=== PATIENT | female | born 1930 | race Hispanic/Latino ===

== ENCOUNTER 2017-12-01 15:41 | Inpatient (IN) | payer MEDICARE ==
[2017-12-01] MEDS ORDERED: Morphine 4 mg/ml ISec IVP STA (16:12)
--- NOTE | 2017-12-01 16:15 | ED PDOC ---
Arrival/HPI - General Time Seen by Provider: 12/01/17 16:05 Historian: Patient - History of Present Illness Narrative History of Present Illness (Text): 12/01/17 16:10 Susanne Chairez is an 87 year old female who presents to the emergency department complaining of left hip and femur injury s/p mechanical fall prior to arrival as per daughter. Patient is deaf, history obtained through daughter. Patient was walking when she tripped on a rug on her porch. No other complaints offered at this time. Time/Duration: Prior to Arrival Symptom Onset: Sudden Symptom Course: Improving Activities at Onset: Light Context: Walking, Home Associated Symptoms (Text): 12/01/17 16:33 Mechanical fall at home on her porch tripping over a rug just prior to arrival injuring left hip. No other injury or trauma. Past Medical History - Provider Review Nursing Documentation Reviewed: Yes - Cardiac Hx Atrial Fibrillation: Yes - Pulmonary Hx Respiratory Disorders: No - Neurological Hx Neurological Disorder: Yes (VERTIGO) Hx Dementia: Yes (DOES NOT TAKE THE MEDICATION) - HEENT Hx HEENT Disorder: Yes (wears hearing aids(BILATERAL)) - Renal Hx Renal Disorder: No - Endocrine/Metabolic Hx Hypothyroidism: Yes - Hematological/Oncological Hx Blood Disorders: No - Integumentary Hx Dermatological Disorder: Yes (RIGHT FOOT STASIS ULCER) - Musculoskeletal/Rheumatological Hx Musculoskeletal Disorders: Yes (hammertoes) Hx Falls: Yes Hx Unsteady Gait: Yes (CANE) - Gastrointestinal Hx Gastrointestinal Disorders: No - Genitourinary/Gynecological Hx Genitourinary Disorders: No - Psychiatric Hx Psychophysiologic Disorder: No Hx Substance Use: No - Surgical History Hx Coronary Artery Bypass Graft: Yes Family/Social History - Physician Review Nursing Documentation Reviewed: Yes Family/Social History: No Known Family HX Smoking Status: Former Smoker Hx Alcohol Use: No Hx Substance Use: No Allergies/Home Meds Allergies/Adverse Reactions: Allergies Penicillins Allergy (Verified 12/01/17 17:04) ANAPHYLAXIS Sulfa (Sulfonamide Antibiotics) Allergy (Verified 12/01/17 17:04) ANAPHYLAXIS Home Medications: Home Meds Medication Instructions Recorded Confirmed Enalapril Maleate [Vasotec] 2.5 mg PO DAILY 12/27/16 12/01/17 Ferrous Sulfate [Feosol] 325 mg PO DAILY 12/27/16 12/01/17 Cholestyramine [Questran] 4 gm PO HS 12/28/16 12/01/17 Omeprazole 40 mg PO DAILY 12/01/17 12/01/17 Review of Systems - Physician Review All systems were reviewed & negative as marked: Yes - Review of Systems Constitutional: absent: Fevers, Night Sweats Eyes: absent: Vision Changes ENT: absent: Hearing Changes Respiratory: absent: SOB, Cough Cardiovascular: absent: Chest Pain Gastrointestinal: absent: Abdominal Pain Genitourinary Female: absent: Dysuria Musculoskeletal: Other (Left hip pain and femur injury) Skin: absent: Rash, Pruritis Neurological: absent: Headache, Dizziness, Focal Weakness Endocrine: absent: Diaphoresis Hemo/Lymphatic: absent: Adenopathy Psychiatric: absent: Anxiety, Depression Physical Exam Vital Signs Reviewed: Yes Vital Signs Temp Pulse Resp BP Pulse Ox 12/01/17 16:05 98.1 F 86 18 185/89 H 99 Temperature: Afebrile Blood Pressure: Hypertensive Pulse: Regular Respiratory Rate: Normal Appearance: Positive for: Uncomfortable, Cachectic, Other (Thin) Pain Distress: Severe Mental Status: Positive for: Alert and Oriented X 3 - Systems Exam Head: Present: Atraumatic, Normocephalic Pupils: Present: PERRL Extroacular Muscles: Present: EOMI Conjunctiva: Present: Normal Mouth: Present: Moist Mucous Membranes Neck: Present: Normal Range of Motion Respiratory/Chest: Present: Decreased Breath Sounds (Lung sounds diminished) Cardiovascular: Present: Regular Rate and Rhythm, Normal S1, S2. No: Murmurs Abdomen: Present: Normal Bowel Sounds. No: Tenderness, Distention, Peritoneal Signs Back: Present: Normal Inspection Upper Extremity: Present: Normal Inspection. No: Cyanosis, Edema Lower Extremity: Present: Swelling (Swollen hip), Deformity (Left LE shortened and externally rotated) Neurological: Present: GCS=15, CN II-XII Intact, Speech Normal, Motor Func Grossly Intact Skin: Present: Warm, Dry, Normal Color. No: Rashes Psychiatric: Present: Alert, Oriented x 3, Normal Insight, Normal Concentration Medical Decision Making ED Course and Treatment: 12/01/17 16:18 Impression: 87 year old female complaining of left hip and femur injury s/p mechanical fall prior to arrival as per daughter. Differential Diagnosis included but are not limited to: Mechanical Fall Plan: -- EKG -- Chest X-ray -- Left Femur X-ray -- Left Hip X-ray -- Pelvis X-ray -- Urinalysis -- Labs -- Morphine and Zofran -- Reassess and disposition Prior Visits: Notes and results from previous visits were reviewed. Patient was last seen in the emergency department on 12/27/16 for intermittent, non-radiating, epigastric chest pain. Patient was admitted to hospitalist care for further evaluation. Progress Notes: 12/01/17 04:10 Code Ortho was called on patient. 12/01/17 16:35 EKG shows normal sinus rhythm rate approximately 80 with frequent unifocal PVCs and no acute ST or T-wave changes 12/01/17 18:05 Discussed with Mello Corado and medical records library professor. - Lab Interpretations Lab Results: 12/01/17 16:35 12/01/17 16:35 Lab Results 12/01/17 16:35: Sodium 142, Potassium 4.0, Chloride 106, Carbon Dioxide 23, Anion Gap 16, BUN 20, Creatinine 0.9, Est GFR ( Amer) > 60, Est GFR (Non- Af Amer) 60, Random Glucose 145 H, Calcium 9.0, Total Bilirubin 0.4, AST 27, ALT 25, Alkaline Phosphatase 108, Lactate Dehydrogenase 574, Total Creatine Kinase 79, Troponin I 0.01 D, NT-Pro-B Natriuret Pep 2550 H, Total Protein 6.5 , Albumin 3.4, Globulin 3.2, Albumin/Globulin Ratio 1.1 12/01/17 16:35: PT 16.4 H, INR 1.43 H, APTT 32.3 12/01/17 16:35: WBC 8.2 D, RBC 3.66, Hgb 10.6 L, Hct 33.4 L, MCV 91.3, MCH 29.0 , MCHC 31.7, RDW 13.3, Plt Count 208, MPV 10.2, Gran % 75.1 H, Lymph % (Auto) 17.9 L, [place] % (Auto) 4.4, Eos % (Auto) 2.0, Baso % (Auto) 0.6, Gran # 6.16, Lymph # (Auto) 1.5, [place] # (Auto) 0.4, Eos # (Auto) 0.2, Baso # (Auto) 0.05 I have reviewed the lab results: Yes - RAD Interpretation Radiology Orders: 12/01/17 16:09 Femur Left [FEMUR MIN 2 VIEWS LT] [RAD] Stat 12/01/17 16:10 CHEST ONE VIEW [RAD] Stat Hip Left [HIP MIN 2V W/ PELVIS LT] [RAD] Stat - Medication Orders Current Medication Orders: Discontinued Medications Morphine Sulfate (Morphine) 4 mg IVP STAT STA Stop: 12/01/17 16:13 Last Admin: 12/01/17 16:33 Dose: Morphine Sulfate (Morphine) 4 mg IVP STAT STA Stop: 12/01/17 16:21 Last Admin: 12/01/17 16:33 Dose: 4 mg IVP Administration Document 12/01/17 16:33 SF (Rec: 12/01/17 16:33 SF [email or web address] Charges for Administration # of IVP Administrations 1 Ondansetron HCl (Zofran Inj) 4 mg IVP ONCE ONE Stop: 12/01/17 16:14 Last Admin: 12/01/17 16:33 Dose: 4 mg IVP Administration Document 12/01/17 16:33 SF (Rec: 12/01/17 16:33 SF [id number]) Charges for Administration # of IVP Administrations 1 - Scribe Statement The provider has reviewed the documentation as recorded by the Juan José Diaz Provider Scribe Attestation: All medical record entries made by the Scribe were at my direction and personally dictated by me. I have reviewed the chart and agree that the record accurately reflects my personal performance of the history, physical exam, medical decision making, and the department course for this patient. I have also personally directed, reviewed, and agree with the discharge instructions and disposition. Disposition/Present on Arrival - Present on Arrival Any Indicators Present on Arrival: No History of DVT/PE: No History of Uncontrolled Diabetes: No Urinary Catheter: No History of Decub. Ulcer: No History Surgical Site Infection Following: None - Disposition Have Diagnosis and Disposition been Completed?: Yes Diagnosis: Intertrochanteric fracture of left femur, Elevated brain natriuretic peptide ( BNP) level, Hypertension Disposition: HOSPITALIZED Disposition Time: 18:06 Patient Plan: Admission Condition: FAIR [facility] - Follow up with primary
[2017-12-01] MEDS ORDERED: Morphine 5 MG/ML SYRINGE IVP STA (16:20)
[2017-12-01 17:04] LABS: ALB/GLOB RATIO 1.1 (1.1-1.8); ALBUMIN 3.4 g/dL (3.0-4.8); ALT/SGPT 25 U/L (7-56); AST/SGOT 27 U/L (14-36); BLOOD UREA NITROGEN 20 mg/dL (7-21); GFR AFRICAN-AMERICAN > 60; GFR NON-AFRICAN AMERICAN 60
[2017-12-01 17:11] LABS: BASO # 0.05 K/mm3 (0.0-2.0); BASO % 0.6 % (0.0-3.0); EOS # 0.2 (0.0-0.7); GRAN # 6.16 (1.4-6.5); GRAN % 75.1 % (50.0-68.0); HEMOGLOBIN 10.6 g/dL (12.0-16.0); LYMPH # 1.5 (1.2-3.4); LYMPH % 17.9 % (22.0-35.0); MEAN CELL VOLUME 91.3 fl (80.0-105.0); MEAN CORPUSCULAR HGB CONC 31.7 g/dl (31.0-37.0); MEAN PLATELET VOLUME 10.2 fl (7.0-11.0); MONO # 0.4 (0.1-0.6); MONO % 4.4 % (1.0-6.0); RBC 3.66 10^6/uL (3.5-6.1); RED CELL DISTRIBUTION WIDTH 13.3 % (11.5-14.5); WHITE BLOOD COUNT 8.2 10^3/ul (4.5-11.0)
[2017-12-01 17:16] LABS: B-TYPE NATRIURETIC PEPTIDE 2550 pg/mL (0-450); TROPONIN I 0.01 ng/mL
[2017-12-01 17:28] LABS: INR 1.43 (0.93-1.08); PARTIAL THROMBOPLASTIN TIME 32.3 Seconds (25.1-36.5); PROTHROMBIN TIME 16.4 SECONDS (9.4-12.5)
--- NOTE | 2017-12-01 17:50 | CARD ---
APPROVED REPORT EKG Measurement Heart [id number] <Conclusion> Sinus rhythm with occasional premature ventricular complexes and fusion complexes Otherwise normal ECG
--- NOTE | 2017-12-01 19:03 | RAD ---
PROCEDURE: CHEST RADIOGRAPH, 1 VIEW HISTORY: OR COMPARISON: 12/27/2016. FINDINGS: LUNGS: Fibronodular changes/ scarring in the apices. PLEURA: No pneumothorax or pleural fluid seen. CARDIOVASCULAR: No radiographic findings to suggest acute or significant cardiovascular disease. OSSEOUS STRUCTURES: No significant abnormalities. VISUALIZED UPPER ABDOMEN: Normal. OTHER FINDINGS: None. IMPRESSION: No active disease. No acute/significant interval changes.
[2017-12-01 20:18] LABS: URINE BILIRUBIN NEGATIVE (NEGATIVE); URINE BLOOD NEGATIVE (NEGATIVE); URINE GLUCOSE (UA) NEGATIVE (NEGATIVE); URINE LEUKOCYTE ESTERASE NEGATIVE Leu/uL (NEGATIVE); URINE NITRATE NEGATIVE (NEGATIVE); URINE PROTEIN 30 mg/dL (<30 mg/dL); URINE UROBILINOGEN 0.2 E.U./dL (<1 E.U./dL)
[2017-12-01 20:32] LABS: TOTAL IRON BINDING CAPACITY 242 ug/dL (265-497)
[2017-12-01 20:34] LABS: % IRON SATURATION 21 % (20-55); IRON 51 ug/dL (45-180)
[2017-12-01] MEDS ORDERED: diltiaZEM 120 mg/24 Hours CD Cap PO ONE (20:45)
[2017-12-01 20:47] LABS: URINE APPEARANCE CLEAR (CLEAR); URINE COLOR YELLOW (YELLOW)
[2017-12-01 20:48] LABS: URINE EPITHELIAL CELLS 0 - 2 /hpf (0-5); URINE RBC NEGATIVE /hpf (0-2); URINE WBC 0 - 2 /hpf (0-6)
[2017-12-01 20:49] LABS: URINE BACTERIA FEW (NEG)
[2017-12-01] MEDS: Morphine 2 mg/ml ISec IVP PRN ×2 (20:57→23:59)
[2017-12-01] MEDS: Cholestyramine 4 gm/Pkt UD PO SCH (20:59)
--- NOTE | 2017-12-01 22:00 | CP.PCM.HP ---
History of Present Illness - History of Present Illness History of Present Illness: Erin Solano, PGY1, H&P for Dr Blum: CC: mechanical fall, left hip pain 87 year old female with PMH of paroxysmal afib on Eliquis, HTN, hypothyroidism, presents s/p mechanical fall at home this afternoon. Pt was walking from the porch to her house, where she tripped on he rug and landed on her left hip. Pt' s daughter at bedside, providing history. States that pt was in her usual state of health prior to this incident. Pt denies any dizziness, syncope, cp, sob, confusion, palpitations/irregular heart beat prior to the fall. In ED, pt afebrile, vitals stable, imaging showed left intertrochanteric femur fracture. Code Ortho called. Currently, pt c/o pain at the left hip site, denies headache, chills, vision changes, cough, sob, cp, n/v/abdominal pain, diarrhea, urinary symptoms, leg swelling. 12 point ROS obtained and negative, except as noted per HPI. PMH: paroxysmal afib, vertigo, HTN, hypothyroidism, arthritis, age related cognitive decline PSH: denies All: PCN, sulfa FH: DM, HTN SH: Denies etoh/tobacco/drug use. Lives with daughter, walks by self in house, uses cane outside home. Present on Admission - Present on Admission Any Indicators Present on Admission: No History of DVT/PE: No History of Uncontrolled Diabetes: No Urinary Catheter: No Decubitus Ulcer Present: No Review of Systems - Review of Systems All systems: reviewed and no additional remarkable complaints except Review of Systems: as per hPI Past Patient History - Infectious Disease Hx of Infectious Diseases: None - Past Social History Smoking Status: Former Smoker - CARDIAC Hx Atrial Fibrillation: Yes - PULMONARY Hx Respiratory Disorders: No - NEUROLOGICAL Hx Neurological Disorder: Yes (VERTIGO) Hx Dementia: Yes (DOES NOT TAKE THE MEDICATION) - HEENT Hx HEENT Problems: Yes (wears hearing aids(BILATERAL)) - RENAL Hx Chronic Kidney Disease: No - ENDOCRINE/METABOLIC Hx Hypothyroidism: Yes - HEMATOLOGICAL/ONCOLOGICAL Hx Blood Disorders: No - INTEGUMENTARY Hx Dermatological Problems: Yes (RIGHT FOOT STASIS ULCER) - MUSCULOSKELETAL/RHEUMATOLOGICAL Hx Musculoskeletal Disorders: Yes (hammertoes) Hx Falls: Yes Hx Unsteady Gait: Yes (CANE) - GASTROINTESTINAL Hx Gastrointestinal Disorders: No - GENITOURINARY/GYNECOLOGICAL Hx Genitourinary Disorders: No - PSYCHIATRIC Hx Psychophysiologic Disorder: No Hx Substance Use: No - SURGICAL HISTORY Hx Coronary Artery Bypass Graft: Yes Meds Allergies/Adverse Reactions: Allergies Allergy/AdvReac Type Severity Reaction Status Date / Time Penicillins Allergy ANAPHYLAXIS Verified 12/01/17 21:07 Sulfa (Sulfonamide Allergy ANAPHYLAXIS Verified 12/01/17 21:07 Antibiotics) Physical Exam - Constitutional Appears: Non-toxic, No Acute Distress - Head Exam Head Exam: ATRAUMATIC, NORMOCEPHALIC - Eye Exam Eye Exam: EOMI, PERRL. absent: Conjunctival injection, Scleral icterus Pupil Exam: NORMAL ACCOMODATION, PERRL - ENT Exam ENT Exam: Mucous Membranes Moist - Neck Exam Neck exam: Positive for: Normal Inspection - Respiratory Exam Respiratory Exam: Clear to Auscultation Bilateral, NORMAL BREATHING PATTERN. absent: Accessory Muscle Use, Chest Wall Tenderness, Rhonchi, Wheezes, Respiratory Distress - Cardiovascular Exam Cardiovascular Exam: REGULAR RHYTHM, RRR, +S1, +S2. absent: Systolic Murmur - GI/Abdominal Exam GI & Abdominal Exam: Normal Bowel Sounds, Soft. absent: Diminished Bowel Sounds , Distended, Organomegaly, Tenderness - Extremities Exam Extremities exam: Positive for: normal capillary refill, pedal pulses present. Negative for: calf tenderness, joint swelling, tenderness Additional comments: left foot externally rotated, TTP in left hip/proximal femur site. - Back Exam Back exam: NORMAL INSPECTION - Neurological Exam Neurological exam: Alert, CN II-XII Intact, Oriented x3 - Skin Skin Exam: Dry, Normal Color, Warm Results - Vital Signs Recent Vital Signs: Last Vital Signs Temp 98.1 F 12/01/17 16:05 Pulse 46 L 12/01/17 20:59 Resp 17 12/01/17 20:09 BP 165/60 H 12/01/17 20:59 Pulse Ox 98 12/01/17 20:09 - Labs Result Diagrams: 12/01/17 16:35 12/01/17 16:35 Labs: Laboratory Results - last 24 hr 12/01/17 20:00 Urine Color Yellow Urine Appearance Clear Urine pH 6.0 Ur Specific [place] 1.025 Urine Protein 30 H Urine Glucose (UA) Negative Urine Ketones Trace H Urine Blood Negative Urine Nitrate Negative Urine Bilirubin Negative Urine Urobilinogen 0.2 Ur Leukocyte Esterase Negative Urine RBC Negative Urine WBC 0 - 2 Ur Epithelial Cells 0 - 2 Urine Bacteria Few Assessment & Plan - Assessment and Plan (Free Text) Assessment: 87 year old female with PMH paroxysmal afib (on Eliquis), HTN, hypothyroidism, presents s/p mechanical fall, found to have left intertrochanteric femur fracture: Left intertrochanteric femur fracture: - Code Ortho called. - Dr Dhillon on board. Appreciate recs. - morphine 2 mg q 4h prn - NS @ 80 - Cardio c/s for clearance. appreciate help. - Quiroz cath inserted. - Fall precautions. Hx of HTN: - c/w home meds lisinopril Hx of Paroxysmal afib: - EKG shows Sr with occasional PVCs, HR 80 - Hold Eliquis - C/w home Cardizem - Obtain CT head to r/o bleed Hx of hypothyroidism: - c/w home synthroid Hx of Constipation: - Senna, Colace PPX: heparin sq, protonix Discussed with Dr Villegas. - Date & Time Date: 12/01/17 Time: 22:00
[2017-12-01] MEDS: Sodium Chloride 0.9% 1,000 ML IV SCH (23:08)
[2017-12-01 23:29] VITALS: BMI 17.9
[2017-12-01] MEDS ORDERED: Influenza Vaccine 60 mcg/0.5 mL SYR (4YR UP) IM ONE (23:29)
[2017-12-01] MEDS ORDERED: Pneumococcal 23-Valent Vaccine IM ONE (23:29)
[2017-12-02] MEDS: Morphine 2 mg/ml ISec IVP PRN ×3 (05:30→22:26)
[2017-12-02 06:43] LABS: BASO # 0.02 K/mm3 (0.0-2.0); BASO % 0.2 % (0.0-3.0); GRAN # 8.93 (1.4-6.5); GRAN % 75.6 % (50.0-68.0); LYMPH # 1.7 (1.2-3.4); LYMPH % 14.1 % (22.0-35.0); MEAN CELL VOLUME 89.6 fl (80.0-105.0); MEAN CORPUSCULAR HEMOGLOBIN 29.9 pg (25.0-35.0); MEAN CORPUSCULAR HGB CONC 33.3 g/dl (31.0-37.0); MEAN PLATELET VOLUME 9.6 fl (7.0-11.0); MONO # 1.2 (0.1-0.6); MONO % 10.1 % (1.0-6.0); RBC 2.68 10^6/uL (3.5-6.1); RED CELL DISTRIBUTION WIDTH 13.4 % (11.5-14.5); WHITE BLOOD COUNT 11.8 10^3/ul (4.5-11.0)
[2017-12-02 07:03] LABS: TROPONIN I 0.02 ng/mL
[2017-12-02 07:06] LABS: ALBUMIN 2.9 g/dL (3.0-4.8); ALT/SGPT 29 U/L (7-56); AST/SGOT 20 U/L (14-36); BILIRUBIN,DIRECT 0.3 mg/dL (0.0-0.4); BLOOD UREA NITROGEN 20 mg/dL (7-21); CALCIUM 8.7 mg/dL (8.4-10.5); GFR AFRICAN-AMERICAN > 60; GFR NON-AFRICAN AMERICAN > 60; HDL CHOLESTEROL 48 mg/dL (29-60); MAGNESIUM 1.4 mg/dL (1.7-2.2)
[2017-12-02 07:08] LABS: FREE T4 1.01 ng/dL (0.78-2.19); LDL CHOLESTEROL 36 mg/dL (0-129); T4 5.8 ug/dL (5.5-11.0)
[2017-12-02] MEDS ORDERED: diltiaZEM 120 mg/24 Hours CD Cap PO STA (07:21)
--- NOTE | 2017-12-02 08:23 | RAD ---
PROCEDURE: Pelvis and left hip HISTORY: trauma COMPARISON: TECHNIQUE: Three views FINDINGS: There is a comminuted intertrochanteric fracture of the left hip. The pelvis is intact. IMPRESSION: Comminuted intertrochanteric fracture of the left hip
--- NOTE | 2017-12-02 08:25 | RAD ---
PROCEDURE: Left Femur Radiographs. HISTORY: trauma COMPARISON: None. TECHNIQUE: AP and Lateral Radiographs of the left femur. FINDINGS: FEMUR: Normal. No fracture. SOFT TISSUES: Normal. OTHER FINDINGS: Fracture left hip IMPRESSION: No distal femoral fracture.
--- NOTE | 2017-12-02 08:40 | HP ---
HISTORY OF PRESENT ILLNESS: The patient is a 87-year-old female presented to the Emergency Room, the patient was brought into the emergency room by [facility]. According to the patient and the patient's daughter, the patient tripped and fell injuring her left leg between the hips and the knee. The patient described pain scale of 10/10. The patient was unable to get up from the floor after the patient falling. Patient is complaining of left hip and left leg pain with a pain scale of 10/10. The patient and the daughter categorically denies loss of consciousness or syncope. The patient has hearing deficit and also the patient's daughter has a hearing deficit, so most of the communication was with loud communication which the patient and the daughter was able to understand. According to the patient and the patient's daughter, the patient tripped on a rug in her porch and fell, and developed left hip pain. REVIEW OF SYSTEMS: A 12-system review was done, pertinent positive and negative dictated above. CODE STATUS: Full code. LIVING WILL ADVANCE DIRECTIVE: None. ALLERGIES: ARE TO PENICILLIN AND SULFA. HEIGHT: 5 feet 8 inches as per the [facility] info. WEIGHT: 118 pounds. BODY MASS INDEX: . HOME MEDICATIONS: Omeprazole 40 mg daily, Cardizem CD 120 mg daily, Jefferson Forte 500 mg daily, Synthroid 150 mcg daily, ferrous sulfate 325 mg daily, Vasotec 2.5 mg daily, Questran 4 g at bedtime, Ecotrin 81 mg daily, Eliquis 2.5 mg twice a day. SOCIAL HISTORY: Positive for former smoker. Denies alcohol and substance abuse. PAST MEDICAL AND SURGICAL HISTORY: History of atrial fibrillation, history of hypertension, history of hypothyroidism, history of dyslipidemia, history of gait dysfunction, history of coronary artery bypass graft, history of hearing deficit, using hearing aids, history of history of dementia, history of vertigo. The patient's past medical history is significant for hospitalization a year ago in December 2016, history of paroxysmal atrial fibrillation with rapid ventricle response, history of dilated cardiomyopathy with ejection fraction of 45, history of normocytic iron-deficiency anemia, history of status post IV Venofer treatment, history of transaminitis, history of vitamin B12 deficiency, history of systolic congestive heart failure with left ventricular ejection fraction of 45%, history of hypothyroidism, history of vitamin B12 deficiency, history of mild pulmonary arterial hypertension with elevated right ventricular systolic pressure of 40 mmHg, history of [id number] aortic regurgitation, moderate mitral regurgitation, history of deconditioning, history of severe kyphosis, history of dementia with episodic forgetfulness, history of hypovitaminosis D, history of hypertension, history of hypothyroidism, history of [id number]-[id number] aortic regurgitation, moderate mitral regurgitation, mild tricuspid regurgitation, history of gait dysfunction. The patient's past medical history is significant for history of chest pain, history of hypertension, history of atrial fibrillation, history of hypovitaminosis D, history of hypertension, hypothyroidism, degenerative joint disease, history of dementia, on no medications, history of atrial fibrillation, history of paroxysmal atrial fibrillation, history of gait dysfunction, history of hearing deficit, history of hypothyroidism. The patient is seen in stretcher #11 in the emergency room. The patient's daughter is at bedside. PHYSICAL EXAMINATION: GENERAL: The patient is alert, awake, responsive, hard of hearing. The patient is lying in the bed comfortable. HEENT: Head normocephalic, atraumatic. HEENT examination shows dry oral mucosa, pale conjunctivae. No oropharyngeal lesion. Soft carotid bruit. Positive hearing deficit noted. Cardiovascular: S1 and S2. Questionable irregular rhythm with positive systolic murmur, left second intercostal space, right second intercostal space, left sternal border. CHEST: Kyphosis. LUNGS: Shows no rales, crackles or wheezing. No rhonchi. ABDOMEN: Soft. Positive bowel sound. GENITALIA: Female. RECTAL: Deferred. EXTREMITY: Shows no pitting edema of the lower extremity, but decreased range of motion of the left lower extremity. VASCULAR: Palpable pulses. NEUROLOGIC: The patient is alert, awake, responsive, hard of hearing. Cranial nerves II through XII limited. Gait examination could not be tested. PSYCHIATRIC: Is not applicable. Body mass index is 18. DIAGNOSTICS: Significant abnormal diagnostics; hemoglobin and hematocrit 10.6 and 33.4, granulocytes 75, PT/PTT 16.4 and 32.3. Sodium 142, potassium 4.0, chloride 106, CO2 of 23, anion gap 16, BUN 20, creatinine 0.9, GFR greater than 60, glucose 145, calcium 9.0, iron 51, TIBC 242, iron saturation 21. Troponin is 0.01. BNP is 2550. Urine is not done. The patient's CPK was normal at 79, glucose 145. Rest of the chemistries within normal limit. EKG, chest x-ray, hip and pelvis and femur x-rays reviewed. The patient was evaluated in the emergency room by the ER physician, Dr. Mayo. The patient was treated in the emergency room with IV morphine. The patient was advised to be admitted after the patient's x-ray revealed left femur intertrochanteric fracture. IMPRESSION AND PLAN 1. Status post mechanical fall. 2. Left femur intertrochanteric fracture. 3. Hearing dysfunction. 4. Hypertension. The patient's blood pressure has been ranging around 154/94, 176/74, 185/89. 5. Normocytic anemia. 6. Granulocytosis. 7. Hyperglycemia. 8. Elevated BNP with history of left ventricle ejection fraction of 45%. 9. Gait dysfunction secondary to fall. 10. Fibronodular apical pulmonary changes. 11. 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 12. Nonspecific ST-T changes. 13. History of paroxysmal atrial fibrillation. 14. History of questionable dementia. 15. History of gastroesophageal reflux, history of hypothyroidism, history of hypertension. PLAN: At this time, the patient has been ordered repeat labs, thyroid panel, lipid panel. Repeat troponin ordered for the morning. Repeat EKG ordered. CONSULTATION: 1. Cardiology, Dr. Bailey for preop clearance. 2. Dr. Dhillon for Orthopedics. The patient has been resumed on Cardizem CD 120 mg daily, aspirin 81 daily. The patient's p.o. iron will be held at this time. The patient is started on morphine 2 mg IV q. 4 p.r.n., Protonix 40 mg daily, Questran 4 g daily. The patient is started on IV fluid 0.9 at 80 mL an hour, Synthroid 150 mcg daily, Jefferson Forte 500 mg daily, Zestril 2.5 mg daily, Zofran will be ordered for nausea. The patient will be ordered Senokot and stool softeners, and laxative to prevent constipation while the patient is getting intravenous narcotics. The patient will be put on SCDs, HUMBERTO stockings, DVT prophylaxis. The patient has been ordered echo with Doppler, n.p.o. diet. Orthopedics physician called to the nurses and advised to keep the patient n.p.o. for evaluation of possible surgical intervention in the a.m. The patient was seen and examined in stretcher #11 in the emergency room. The patient's condition, diagnosis, test results, preliminary x-ray finding, all the diagnostic test results was explained to the patient and the patient's daughter who was present at the bedside. All of the above was extensively explained to the patient and the patient's daughter at length and all questions concerned answered. The patient and the patient's daughter was advised the best treatment option is surgical intervention to continue with the patient's baseline status with ambulation and independence, with the patient and the patient's daughter acknowledged understanding. Though I have also explained to the patient and the patient's daughter that the patient will be at least moderate to high risk for surgical intervention because of advanced age and underlying multiple comorbidities. The patient will have Quiroz catheter placed. The patient has been ordered SCDs, HUMBERTO stockings. The patient will be put on DVT prophylaxis. Heparin 5000 units subcu q. 8. At present, the patient is seen in stretcher #11. I have discussed with the patient and the patient's family about the patient's need for hospitalization, need for further diagnostic therapeutic intervention, need for most likely surgical intervention for the left hip and femur intertrochanteric fracture. All questions concerned answered at length. The patient's further management will be dependent upon the patient's clinical condition, hemodynamic status and as per the patient response to therapeutic intervention, as per the patient's diagnostic test results and as per recommendation by Cardiology and Orthopedics. Dictated and electronically signed, not read. Matt Villegas MD
--- NOTE | 2017-12-02 08:44 | CT ---
PROCEDURE: CT HEAD WITHOUT CONTRAST. HISTORY: fall, pt on eliquis COMPARISON: None available. TECHNIQUE: Axial computed tomography images were obtained through the head/brain without intravenous contrast. Radiation dose: Total exam DLP = 873 mGy-cm. This CT exam was performed using one or more of the following dose reduction techniques: Automated exposure control, adjustment of the mA and/or kV according to patient size, and/or use of iterative reconstruction technique. FINDINGS: HEMORRHAGE: No intracranial hemorrhage. BRAIN: No mass effect or edema. No atrophy or chronic microvascular ischemic changes. VENTRICLES: Unremarkable. No hydrocephalus. CALVARIUM: Unremarkable. PARANASAL SINUSES: Unremarkable as visualized. No significant inflammatory changes. MASTOID AIR CELLS: Right-sided otomastoiditis. The middle ear is opacified. The ossicles are not disrupted. There is opacification and sclerosis of the mastoid air cells OTHER FINDINGS: None. IMPRESSION: No acute intracranial findings. Right-sided otomastoiditis
[2017-12-02] MEDS: Pantoprazole 40 mg EC Tab PO SCH (08:48)
[2017-12-02] MEDS: Magnesium Sulfate 2 GM in Sodium Chloride 0.9% 100 ML IVPB SCH ×2 (08:56→11:33)
[2017-12-02] MEDS ORDERED: diltiaZEM 120 mg/24 Hours CD Cap PO SCH (10:00)
--- NOTE | 2017-12-02 11:25 | CARD ---
APPROVED REPORT EXAM: Two-dimensional and M-mode echocardiogram with Doppler and color Doppler. INDICATION Congestive Heart Failure 2D DIMENSIONS Left Atrium (2D)4.3 (1.6-4.0cm)LVOT Diameter1.8 (1.8-2.4cm) LVEF (%)55.0 (>50%) M-Mode DIMENSIONS Aortic Root2.90 (2.2-3.7cm)Aortic Cusp Exc.0.80 (1.5-2.0cm) Aortic Valve AoV Peak Pyblfnmo168.0cm/sAoV VTI39.4cmAO Peak GR.20mmHg LVOT Peak Zcyocsqz874.0cm/sLVOT VTI25.10cmAO Mean GR.12mmHg MARY (VMAX)1.19vl8JYF (VTI)1.40bm2DO P 1/2 Lnrn017ym Mitral Valve E/A ratio0.0 TDI E/Lateral E'0.0E/Medial E'0.0 Tricuspid Valve TR Peak Nxwdlbrv233nk/sRAP [id number] Peak Gr.49mmHg [id number] LEFT VENTRICLE The left ventricle is normal size. There is mild concentric left ventricular hypertrophy. The left ventricular ejection fraction is within the normal range. No left ventricle thrombus noted on this study. RIGHT VENTRICLE The right ventricle is normal size. There is normal right ventricular wall thickness. The right ventricular systolic function is normal. ATRIA The left atrium is mildly dilated. The right atrium is mildly dilated. AORTIC VALVE The aortic valve is moderately thickened. There is moderate aortic regurgitation. MITRAL VALVE The mitral valve is mildly thickened. Mitral regurgitation is trace to mild. TRICUSPID VALVE There is mild tricuspid regurgitation. There is moderate pulmonary hypertension. GREAT VESSELS The aortic root is normal in size. <Conclusion> The left ventricle is normal size. There is mild concentric left ventricular hypertrophy. The left ventricular ejection fraction is within the normal range. There is moderate aortic regurgitation. Mitral regurgitation is trace to mild. There is mild tricuspid regurgitation. There is moderate pulmonary hypertension.
[2017-12-02] MEDS: Sodium Chloride 0.9% 1,000 ML IV SCH (11:39)
[2017-12-02] MEDS: Levothyroxine 150 MCG TAB PO SCH (11:57)
--- NOTE | 2017-12-02 12:17 | CARD ---
APPROVED REPORT EKG Measurement Heart [id number] <Conclusion> Sinus rhythm with frequent premature ventricular complexes( Ventricular bigeminy) Nonspecific ST and T wave abnormality Abnormal ECG
[2017-12-02] MEDS: URSODIOL 500 MG PO SCH (13:10)
[2017-12-02] MEDS ORDERED: Rocuronium 10 mg/ml (5 ml) ONE (13:11)
[2017-12-02] MEDS ORDERED: Succinylcholine 200 mg/10 ml Inj IV ONE (13:11)
[2017-12-02] MEDS ORDERED: Etomidate 20 mg/10ml Inj IV ONE (13:12)
[2017-12-02] MEDS ORDERED: Vancomycin 1 g Inj ONE (14:12)
[2017-12-02] MEDS: Aztreonam 1 Gm in NS 100mL 100 ML IVPB SCH ×2 (14:15→17:37)
[2017-12-02] MEDS: Vancomycin 1gm in NS 250ml 1 GM/250 ML BAG IVPB SCH ×2 (14:18→21:10)
[2017-12-02] MEDS ORDERED: Neostigmine Methylsulfate 3mg/3ml Syringe IV ONE (15:08)
[2017-12-02] MEDS ORDERED: HYDROmorphone 0.5 mg/0.5 ml ISec IVP PRN (15:32)
[2017-12-02] MEDS ORDERED: Sodium Chloride 0.9% 1,000 ML IV SCH (15:45)
[2017-12-02] MEDS ORDERED: HYDROmorphone 0.5 mg/0.5 ml ISec IVP ONE (16:08)
[2017-12-02] MEDS ORDERED: HYDROmorphone 0.5 mg/0.5 ml ISec ONE (16:21)
--- NOTE | 2017-12-02 16:22 | RAD ---
PROCEDURE: Left Hip X-ray Radiographs. HISTORY: post hip fx COMPARISON: 12/01/2017 FINDINGS: BONES: Status post ORIF left intertrochanteric fracture. Fracture fragments are in near anatomic alignment. No additional fracture identified. JOINTS: Normal. SOFT TISSUES: Normal. OTHER FINDINGS: None. IMPRESSION: ORIF left intertrochanteric hip fracture.
--- NOTE | 2017-12-02 16:23 | RAD ---
PROCEDURE: Left Ankle Radiographs. HISTORY: left ankle pain COMPARISON: None FINDINGS: BONES: No acute fracture. There is a small corticated ossific density adjacent to the tip of the medial malleolus which may represent an ununited ossification center or an old ununited fracture fragment. JOINTS: Normal. No osteoarthritis. Ankle mortise maintained. Talar dome intact SOFT TISSUES: Normal. OTHER FINDINGS: A plantar calcaneal spur is noted. IMPRESSION: No acute fracture.
--- NOTE | 2017-12-02 17:15 | CP.PCM.CON ---
History of Present Illness - History of Present Illness History of Present Illness: 87 year old female with PMH of paroxysmal atrial fibrillation, HTN, hypothyroidism, arthritis, was brought in to [facility] [place] because of mechanical fall on her left side. In the ED, Srays revealed left hip fracture and patient is to have surgery today. CT head was done which showed right sided otomastoiditis. She has no fever or chills, no vomiting, no convulsions, no diarrhea. Infectious Diseases consult is requested to further evaluate and manage. Review of Systems - Review of Systems All systems: reviewed and no additional remarkable complaints except (as per hPI ) Past Patient History - Infectious Disease Hx of Infectious Diseases: None - Past Social History Smoking Status: Never Smoked - CARDIAC Hx Cardiac Disorders: Yes Hx Hypertension: Yes - PULMONARY Hx Respiratory Disorders: No - NEUROLOGICAL Hx Neurological Disorder: Yes (VERTIGO) Hx Dementia: Yes (DOES NOT TAKE THE MEDICATION) - HEENT Hx HEENT Problems: Yes (wears hearing aids(BILATERAL)) - RENAL Hx Chronic Kidney Disease: No - ENDOCRINE/METABOLIC Hx Endocrine Disorders: Yes Hx Hypothyroidism: Yes - HEMATOLOGICAL/ONCOLOGICAL Hx Blood Transfusions: No Hx Blood Transfusion Reaction: No - INTEGUMENTARY Hx Dermatological Problems: Yes (RIGHT FOOT STASIS ULCER) - MUSCULOSKELETAL/RHEUMATOLOGICAL Hx Musculoskeletal Disorders: Yes (hammertoes) Hx Falls: Yes Hx Unsteady Gait: Yes (CANE) - GASTROINTESTINAL Hx Gastrointestinal Disorders: No - GENITOURINARY/GYNECOLOGICAL Hx Genitourinary Disorders: No - PSYCHIATRIC Hx Psychophysiologic Disorder: No Hx Substance Use: No - SURGICAL HISTORY Hx Surgeries: Yes - ANESTHESIA Hx Anesthesia Reactions: No Hx Malignant Hyperthermia: No Meds Allergies/Adverse Reactions: Allergies Allergy/AdvReac Type Severity Reaction Status Date / Time Penicillins Allergy ANAPHYLAXIS Verified 12/01/17 21:07 Sulfa (Sulfonamide Allergy ANAPHYLAXIS Verified 12/01/17 21:07 Antibiotics) - Medications Medications: Current Medications Aspirin (Ecotrin) 81 mg PO DAILY [facility] Cholestyramine Resin (Questran) 4 gm PO HS [facility] Last Admin: 12/01/17 20:59 Dose: 4 gm Diltiazem HCl (Cardizem) 30 mg PO Q8H [facility] Last Admin: 12/02/17 09:18 Dose: Not Given Docusate Sodium (Colace) 100 mg PO TID [facility] Heparin Sodium (Porcine) (Heparin) 5,000 units SC Q8H [facility] PRN Reason: Protocol Last Admin: 12/02/17 05:30 Dose: 5,000 units Sodium Chloride (Sodium Chloride 0.9%) 1,000 mls @ 80 mls/hr IV .[id number] [facility] Last Admin: 12/01/17 23:08 Dose: 80 mls/hr Magnesium Sulfate 2 gm/ Sodium (Chloride) 104 mls @ 102 mls/hr IVPB Q3H [facility] Stop: 12/02/17 11:47 Last Admin: 12/02/17 08:56 Dose: 102 mls/hr Aztreonam (Azactam 1 Gm) 100 mls @ 100 mls/hr IVPB Q8 [facility] PRN Reason: Protocol Stop: 12/09/17 10:01 Levothyroxine Sodium (Synthroid) 150 mcg PO DAILY [facility] Lisinopril (Zestril) 2.5 mg PO DAILY [facility] Morphine Sulfate (Morphine) 2 mg IVP Q4 PRN PRN Reason: Pain, severe (8-10) Last Admin: 12/02/17 08:59 Dose: 2 mg Non-Formulary Medication (Ursodiol [Jefferson Forte]) 500 mg PO DAILY [facility] Ondansetron HCl (Zofran Inj) 4 mg IVP Q4H PRN PRN Reason: Nausea/Vomiting Pantoprazole Sodium (Protonix Ec Tab) 40 mg PO ACB [facility] Last Admin: 12/02/17 08:48 Dose: 40 mg Sennosides (Senokot Tab) 17.2 mg PO HS [facility] Last Admin: 12/01/17 23:07 Dose: 17.2 mg Physical Exam - Constitutional Appears: Chronically Ill - Head Exam Head Exam: NORMAL INSPECTION - ENT Exam ENT Exam: Mucous Membranes Moist - Neck Exam Neck exam: Negative for: Meningismus - Respiratory Exam Respiratory Exam: Decreased Breath Sounds - Cardiovascular Exam Cardiovascular Exam: +S1, +S2 - GI/Abdominal Exam GI & Abdominal Exam: Soft. absent: Tenderness Results - Vital Signs Recent Vital Signs: Last Vital Signs Temp 99.0 F 12/02/17 07:30 Pulse 85 12/02/17 08:47 Resp 22 12/02/17 07:30 BP 184/90 H 12/02/17 08:47 Pulse Ox 99 12/02/17 07:30 - Labs Result Diagrams: 12/02/17 06:15 12/02/17 06:15 Labs: Laboratory Results - last 24 hr 12/01/17 12/02/17 12/02/17 20:00 06:15 06:15 WBC 11.8 H D RBC 2.68 L Hgb 8.0 L D Hct 24.0 L MCV 89.6 MCH 29.9 MCHC 33.3 RDW 13.4 Plt Count 202 MPV 9.6 Gran % 75.6 H Lymph % (Auto) 14.1 L Johnston % (Auto) 10.1 H Eos % (Auto) 0.0 L Baso % (Auto) 0.2 Gran # 8.93 H Lymph # (Auto) 1.7 Johnston # (Auto) 1.2 H Eos # (Auto) 0.0 Baso # (Auto) 0.02 Sodium 142 Potassium 4.0 Chloride 105 Carbon Dioxide 27 Anion Gap 14 BUN 20 Creatinine 0.8 Est GFR ( Amer) > 60 Est GFR (Non-Af Amer) > 60 Random Glucose 153 H Calcium 8.7 Phosphorus 4.1 Magnesium 1.4 L Total Bilirubin 0.3 Direct Bilirubin 0.3 AST 20 ALT 29 Alkaline Phosphatase 79 Troponin I 0.02 D Total Protein 5.6 L Albumin 2.9 L Globulin 2.8 Albumin/Globulin Ratio 1.0 L Triglycerides 74 Cholesterol 98 L LDL Cholesterol Direct 36 HDL Cholesterol 48 Free T4 Thyroxine (T4) TSH 3rd Generation Urine Color Yellow Urine Appearance Clear Urine pH 6.0 Ur Specific [place] 1.025 Urine Protein 30 H Urine Glucose (UA) Negative Urine Ketones Trace H Urine Blood Negative Urine Nitrate Negative Urine Bilirubin Negative Urine Urobilinogen 0.2 Ur Leukocyte Esterase Negative Urine RBC Negative Urine WBC 0 - 2 Ur Epithelial Cells 0 - 2 Urine Bacteria Few 12/02/17 06:15 WBC RBC Hgb Hct MCV MCH MCHC RDW Plt Count MPV Gran % Lymph % (Auto) Johnston % (Auto) Eos % (Auto) Baso % (Auto) Gran # Lymph # (Auto) Johnston # (Auto) Eos # (Auto) Baso # (Auto) Sodium Potassium Chloride Carbon Dioxide Anion Gap BUN Creatinine Est GFR ( Amer) Est GFR (Non-Af Amer) Random Glucose Calcium Phosphorus Magnesium Total Bilirubin Direct Bilirubin AST ALT Alkaline Phosphatase Troponin I Total Protein Albumin Globulin Albumin/Globulin Ratio Triglycerides Cholesterol LDL Cholesterol Direct HDL Cholesterol Free T4 1.01 Thyroxine (T4) 5.8 TSH 3rd Generation 3.72 Urine Color Urine Appearance Urine pH Ur Specific [place] Urine Protein Urine Glucose (UA) Urine Ketones Urine Blood Urine Nitrate Urine Bilirubin Urine Urobilinogen Ur Leukocyte Esterase Urine RBC Urine WBC Ur Epithelial Cells Urine Bacteria Assessment & Plan - Assessment and Plan (Free Text) Plan: Assessment right sided otomastoiditis left hip fracture, acute paroxysmal atrial fibrillation HTN hypothyroidism arthritis Plan Started patient on Vancomycin and Azactam and will monitor clinically
[2017-12-02 17:36] LABS: FOLATE 19.3 ng/mL
--- NOTE | 2017-12-02 17:49 | RAD ---
PROCEDURE: Fluoroscopy up to 1 hr. HISTORY: O.R.I.F. LEFT HIP COMPARISON: None TECHNIQUE: Standard protocol for this study/examination. FINDINGS: Total fluoroscopic time (continuous mode) utilized during the procedure: 86.7 seconds. Submitted images from the current procedure: 4.0 Total exam DLP: (mGy): 7.94 IMPRESSION: Less than 1 hr fluoroscopic time utilized during performance of the procedure.
[2017-12-02] MEDS: Cholestyramine 4 gm/Pkt UD PO SCH (21:11)
[2017-12-02 22:06] LABS: BASO # 0.04 K/mm3 (0.0-2.0); BASO % 0.2 % (0.0-3.0); EOS % 0.1 % (1.5-5.0); GRAN # 15.01 (1.4-6.5); GRAN % 78.5 % (50.0-68.0); HEMOGLOBIN 9.1 g/dL (12.0-16.0); LYMPH # 2.1 (1.2-3.4); LYMPH % 11.2 % (22.0-35.0); MEAN CELL VOLUME 87.7 fl (80.0-105.0); MEAN CORPUSCULAR HEMOGLOBIN 28.8 pg (25.0-35.0); MEAN CORPUSCULAR HGB CONC 32.9 g/dl (31.0-37.0); MEAN PLATELET VOLUME 9.3 fl (7.0-11.0); MONO # 1.9 (0.1-0.6); RBC 3.16 10^6/uL (3.5-6.1); RED CELL DISTRIBUTION WIDTH 15.2 % (11.5-14.5); WHITE BLOOD COUNT 19.1 10^3/ul (4.5-11.0)
[2017-12-03] MEDS: Aztreonam 1 Gm in NS 100mL 100 ML IVPB SCH ×4 (00:09→21:50)
--- NOTE | 2017-12-03 00:37 | CON ---
DATE: 12/02/2017 CARDIOLOGY CONSULTATION HISTORY OF PRESENT ILLNESS: The patient is an 87-year-old woman with a fall with resultant fracture of her hip. No loss of consciousness noted. PAST MEDICAL HISTORY: Notable for history of paroxysmal atrial fibrillation, which was treated. She was treated with Cardizem as well as Eliquis. Her last dose of Eliquis was yesterday morning according to the daughters. The patient's past medical history is also notable for a stress test that was done in January 2017. The defect was small with good LV function. After extensive discussion with the family, the patient's comorbidity as well as her age, risks, benefit analysis resulted in a decision to treat her abnormal stress test medically. She has been chest pain free. She is not short of breath. In addition, her last cardiovascular workup included an echocardiogram, which was done today reveals an ejection fraction of 55% with moderate pulmonary hypertension. Patient is free of chest pain. No shortness of breath noted. No loss of consciousness according her daughters. PHYSICAL EXAMINATION: VITAL SIGNS: Blood pressure 157/57, heart rate in the 70s. NECK: Negative JVD. LUNGS: Without rales. HEART: Reveals a 2/6 systolic ejection murmur. EXTREMITIES: Without edema. Her EKG shows normal sinus rhythm with frequent PVCs and APCs. LABORATORY DATA: Hemoglobin is 8. Chemistries, BUN and creatinine unremarkable with a glucose of 153. Troponins are negative. IMPRESSION: 1. Status post hip fracture without loss of consciousness on a fall. 2. Paroxysmal atrial fibrillation. 3. Anemia. 4. Diabetes mellitus. 5. Aortic valve sclerosis. 6. Good left ventricular function. 7. Moderate pulmonary retention. Given these findings, the patient's cardiac status is as noted and is optimized. Risks, benefit analysis would suggest doing surgery earlier would be better. Careful monitoring of hemoglobin would be important given that her last Eliquis was yesterday morning. Carmine Bailey MD
--- NOTE | 2017-12-03 00:50 | PN ---
DATE: 12/02/2017 LOCATION: The patient is seen in room 566, bed 1. SUBJECTIVE: The patient is lying in the bed. The patient does not appear to be any distress. The patient's daughters are at bedside. Overnight nurse's notes were reviewed. The patient complained of hip pain 06/05, receiving p.r.n. pain medication. The patient's Quiroz catheter was continued. HUMBERTO stockings were continued. SCDs were continued. The patient was seen by director social service, physical therapist. PHYSICAL EXAMINATION: VITAL SIGNS: T-max 97.5. The patient was seen between the hours of 10:00 and 11:00 a.m. Heart rate 68, 69, 84, 85. Overnight, the patient's heart rate dropped into 46. Respirations 17, O2 sat is 97-99%, telemetry monitoring. HEENT: Head examination normocephalic, atraumatic. HEENT examination shows pinkish pale conjunctivae. Anicteric sclerae. Dry oral mucosa. No neck rigidity. Soft carotid bruit. No jugular venous distention. CHEST: Kyphosis. LUNGS: Shows no rales, crackles or wheezing. CARDIOVASCULAR: S1, S2. Regular rhythm. Positive systolic murmur, left sternal border, right second intercostal space, left second intercostal space. ABDOMEN: Soft. Positive bowel sounds. No hepatosplenomegaly noted. No guarding. No rigidity. No rebound tenderness. Positive left hip tenderness noted. GENITALIA: Female. Positive Quiroz catheter. EXTREMITY: Shows decreased range of motion of the left lower extremity. Sensory examination intact. Positive SCDs and HUMBRETO stockings. MUSCULOSKELETAL: Body mass index of 18. NEUROLOGIC: The patient is alert, awake, responsive, hard of hearing, episodically confused. Gait examination is not tested. DIAGNOSTICS: On 12/02/2017, WBC 11.8; hemoglobin and hematocrit 8 and 24, dropping from 10.6 and 33.4; platelet 202; granulocytes 76% segs. PT/PTT 16.4 and 2.3. Sodium 142, potassium 4.0, chloride 105, CO2 of 27, anion gap 14, BUN 20, creatinine 0.8, GFR greater than 60, glucose 153, calcium 8.7, phosphorus 4.1, magnesium 1.4, ferritin 442. Troponin is flat, total protein 5.6, albumin 2.9, cholesterol 98, vitamin B12 of 198, folate 19.3. TSH is 3.7. The patient was typed and crossmatched. Blood type is B+. The patient's imaging and echocardiogram, EKG all reviewed. IMPRESSION AND PLAN: 1. Left hip fracture. 2. Anemia with decreasing hemoglobin and hematocrit. 3. Biapical pulmonary fibrin nodular scarring. 4. Gait dysfunction. 5. Deconditioning. 6. Status post mechanical fall. 7. Left hip comminuted intertrochanteric fracture. 8. Right-sided otomastoiditis with opacification of the middle air and opacification and sclerosis of the mastoid air cells. 9. Hearing deficit. 10. Possible dementia. 11. Hypertension. 12. Bradycardia. 13. Status post open reduction and internal fixation of the left hip intertrochanteric fracture. 14. 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 15. Left heal plantar calcaneal spur. 16. Uncontrolled hypertension. 17. Granulocytosis. 18. Hyperglycemia. 19. Hypomagnesemia. 20. Protein malnutrition. 21. Hypoalbuminemia. 22. Severe vitamin B12 deficiency. 23. Proteinuria and ketonuria. 24. Bacteriuria. 25. B+ blood type. 26. Status post 2 units of packed red blood cell transfusion. 27. Frequent premature ventricular contractions and premature atrial contractions. 28. Left ventricular ejection fraction of 55% with pulmonary arterial hypertension and right ventricular systolic pressure of 60 mmHg. 29. Concentric left ventricular hypertrophy. 30. Mildly dilated left and right atrium. 31. Moderate aortic regurgitation and moderately thickened aortic valve. 32. Mild mitral regurgitation with mildly thickened mitral valve. 33. Tricuspid regurgitation with moderate pulmonary arterial hypertension with right ventricular systolic pressure of 59 mmHg. 34. Hypertensive cardiovascular disease with frequent premature ventricular contractions. 35. History of paroxysmal atrial fibrillation. 36. Penicillin and sulfa allergy. 37. History of questionable cholelithiasis. 38. Hypothyroidism. PLAN: At this time, the patient will be monitored postoperatively. The patient and the patient's family met with the director social service. Discussed discharge planning. The patient has been ordered repeat CMP, LFT, magnesium, phosphorus in a.m. Serial labs have been ordered. Repeat CBC ordered. CURRENT CONSULTATIONS: 1. Cardiology. 2. Orthopedics. 3. Infectious Disease. CURRENT MEDICATIONS: Hydralazine 10 mg IV q. 6 p.r.n., Azactam 1 g IV q. 8. The patient's is started on Colace 100 three times a day, aspirin 81 mg daily, folic acid 1 mg daily, heparin 5000 subcu q. 8, Lopressor 25 mg twice a day, morphine 2 mg IV q. 4 hours p.r.n., Protonix 40 mg daily, Questran 4 g at bedtime, Senokot 17.2 mg at bedtime, IV fluid 0.9 normal saline at 80 mL an hour, Synthroid 150 mcg daily, Jefferson Forte 500 mg daily, vancomycin 1 g IV q. 12, vitamin B12 at 1000 mcg IM daily, Zestril is adjusted to 5 mg daily, Zofran 4 mg IV q. 4 p.r.n. The patient is on incentive spirometry, regular diet. The patient has been ordered HUMBERTO stockings, SCDs. Blood transfusion ordered. The patient will be followed up with the above subspecialties. The patient's hemoglobin A1c will be ordered for hyperglycemia evaluation. The patient will be followed up by orthopedics for starting physical therapy, out of bed, ambulation therapy and gait training. The patient's case was referred to Physical Therapy. The patient's case will be referred to physical therapist after the discretion of the Orthopedics' evaluation. Dictated and electronically signed, not read. Signing off, Matt Villegas MD
--- NOTE | 2017-12-03 02:45 | OP ---
PROCEDURE DATE: 12/02/2017 PREOPERATIVE DIAGNOSIS: Left hip intertrochanteric fracture. POSTOPERATIVE DIAGNOSIS: Left hip intertrochanteric fracture. PROCEDURE: Open reduction and internal fixation of left hip fracture with an intramedullary nail. SURGEON: Jeremy Dhillon MD HOSE INSPECTOR: Renetta Tamayo, physician orthopaedic physician assistant. TYPE OF ANESTHESIA: General. COMPLICATIONS: None. ESTIMATED BLOOD LOSS: 100 mL. IMPLANT: Biomet trochanteric entry nail. The patient received 2 units of packed RBCs intraoperatively. INDICATION FOR PROCEDURE: This is an 87-year-old female who presented status post fall with left hip pain and inability to ambulate. Clinical and radiographic examination was consistent with a left hip intertrochanteric fracture. Recommendation was for open reduction and internal fixation once the patient was medically optimized. The risks, benefits, and alternatives of the procedure were discussed with the patient's daughters, and informed consent was obtained by the daughter who was the power of flamer sealer. DESCRIPTION OF PROCEDURE: After the surgical site was signed and verified in the preoperative holding area, the patient was taken to the operating room and placed supine on the fracture table. After administration of general anesthesia, the patient received 1 gram of vancomycin and 1 gram of Azactam IV. The patient's left lower extremity was positioned in the traction boot. The right lower extremity was gently extended away from the operative field. Care was taken to make sure all bony prominences and nerves were well padded and protected. At this point, a provisional closed reduction was performed using the C-arm image intensifier. Reduction was checked using the C-arm in both the AP and lateral planes. Satisfied, the patient's left lower extremity was prepped and draped in the usual sterile fashion. An approximately 3 cm incision was made proximal to the tip of the greater trochanter. Soft tissues were dissected bluntly down to the tip of the trochanter, and the guide pin for entry hole was placed on the tip of the trochanter. Position of the guide pin was checked using the C-arm in both the AP and lateral planes. The guide pin was inserted into the medullary canal of the proximal femur. Satisfied, the step drill was used to drill our entry hole. At this point, the guide pin was exchanged for a smooth tip guidewire, and again the position of the guidewire was confirmed using the C-arm in both the AP and lateral planes. Next, the nail was inserted over the guidewire and reassessed to the appropriate depth. The position of the nail as well as the fracture reduction was confirmed. Satisfied, through the outrigger drill and through a small incision on the lateral aspect of the proximal thigh, the sleeves for hip screws were placed on the lateral cortex of the proximal femur. The guide pin for our hip screw was then inserted in the roughly center-center position of the femoral head, and this was confirmed using the C-arm. The length of the screw was measured and the hole for our hip screw was then drilled. The appropriate length screw was then inserted over the guide pin into the center-center position of the head being careful to maintain reduction. Satisfied again, the reduction was checked using the image intensifier in both the AP and lateral planes. Satisfied, the screw was locked to the nail by screwing down on the set screw on the proximal aspect of the nail. Finally, through the outrigger jig and through a small incision on the mid portion of the thigh, the nail was locked statically. The outrigger jig was then removed, and final x-rays were taken confirming good position of the hardware as well as good fracture reduction. At this point, the wounds were all irrigated and closed in a layered fashion. A sterile dressing was applied. The patient was removed from the fracture table and transferred to the stretcher and taken to the recovery room in stable condition. Jeremy Dhillon MD
[2017-12-03 07:00] LABS: BASO # 0.02 K/mm3 (0.0-2.0); BASO % 0.2 % (0.0-3.0); EOS % 0.1 % (1.5-5.0); GRAN # 9.83 (1.4-6.5); GRAN % 78.1 % (50.0-68.0); LYMPH # 1.3 (1.2-3.4); LYMPH % 10.5 % (22.0-35.0); MEAN CELL VOLUME 87.1 fl (80.0-105.0); MEAN CORPUSCULAR HEMOGLOBIN 28.2 pg (25.0-35.0); MEAN CORPUSCULAR HGB CONC 32.4 g/dl (31.0-37.0); MEAN PLATELET VOLUME 9.7 fl (7.0-11.0); MONO # 1.4 (0.1-0.6); MONO % 11.1 % (1.0-6.0); RBC 2.8 10^6/uL (3.5-6.1); RED CELL DISTRIBUTION WIDTH 15.7 % (11.5-14.5); WHITE BLOOD COUNT 12.6 10^3/ul (4.5-11.0)
[2017-12-03 07:24] LABS: HEMOGLOBIN 7.9 g/dL (12.0-16.0)
[2017-12-03 08:00] LABS: ALB/GLOB RATIO 0.9 (1.1-1.8); ALBUMIN 2.2 g/dL (3.0-4.8); ALT/SGPT 31 U/L (7-56); AST/SGOT 18 U/L (14-36); BILIRUBIN,DIRECT 0.2 mg/dL (0.0-0.4); BLOOD UREA NITROGEN 21 mg/dL (7-21); CALCIUM 7.8 mg/dL (8.4-10.5); GFR AFRICAN-AMERICAN > 60; GFR NON-AFRICAN AMERICAN > 60; MAGNESIUM 2.3 mg/dL (1.7-2.2)
[2017-12-03] MEDS: Pantoprazole 40 mg EC Tab PO SCH (08:30)
[2017-12-03] MEDS: Levothyroxine 150 MCG TAB PO SCH (09:29)
[2017-12-03] MEDS: URSODIOL 500 MG PO SCH (09:33)
--- NOTE | 2017-12-03 09:49 | CP.PCM.PN ---
Subjective - Date & Time of Evaluation Date of Evaluation: 12/03/17 Time of Evaluation: 09:35 - Subjective Subjective: Patient is POD #1 s/p L ORIF intertrochanteric fx. Patient is laying in bed. She does not appear to be in any distress. She denies any pain. Hgb still low at 7.9, is being transfused again today with 2 units L hip: Dressings are dry and intact Thigh and calf soft nontender. NVI distally POD#1 s/p L ORIF intertroch fx Cont HUMBERTO stockings and SCDS bilaterally for DVT prophylaxis at this time due to low hgb Cont WBAT Cont physical therapy Will monitor labs Objective - Vital Signs/Intake and Output Vital Signs (last 24 hours): Temp Pulse Resp BP Pulse Ox 98 F 86 20 133/67 97 12/03/17 08:23 12/03/17 08:23 12/03/17 08:23 12/03/17 08:23 12/03/17 08:23 Intake and Output: 12/03/17 12/03/17 06:59 18:59 Intake Total 0 Output Total 450 Balance -450 - Medications Medications: Current Medications Aspirin (Ecotrin) 81 mg PO DAILY [facility] Last Admin: 12/02/17 12:00 Dose: Not Given Cholestyramine Resin (Questran) 4 gm PO HS [facility] Last Admin: 12/02/17 21:11 Dose: 4 gm Cyanocobalamin (Vitamin B12 1000 Mcg/Ml Inj) 1,000 mcg IM DAILY [facility] Stop: 12/12/17 10:01 Diphenhydramine HCl (Benadryl) 25 mg IVP Q8H [facility] Stop: 12/03/17 17:31 Docusate Sodium (Colace) 100 mg PO TID [facility] Last Admin: 12/02/17 17:48 Dose: Not Given Folic Acid (Folic Acid) 1 mg PO DAILY [facility] Furosemide (Lasix) 20 mg IVP Q8H [facility] Stop: 12/03/17 17:31 Heparin Sodium (Porcine) (Heparin) 5,000 units SC Q8H [facility] PRN Reason: Protocol Last Admin: 12/02/17 05:30 Dose: 5,000 units Hydralazine HCl (Apresoline) 10 mg IVP Q6 PRN PRN Reason: Systolic Blood Pressure Hydralazine HCl (Apresoline) 10 mg IVP STAT [facility] Last Admin: 12/02/17 18:06 Dose: 10 mg Sodium Chloride (Sodium Chloride 0.9%) 1,000 mls @ 80 mls/hr IV .[id number] [facility] Last Admin: 12/02/17 11:39 Dose: 80 mls/hr Aztreonam (Azactam 1 Gm) 100 mls @ 100 mls/hr IVPB Q8 [facility] PRN Reason: Protocol Stop: 12/09/17 10:01 Last Admin: 12/03/17 06:01 Dose: 100 mls/hr Vancomycin HCl (Vancomycin 1gm) 1 gm in 250 mls @ 167 mls/hr IVPB Q12H [facility] PRN Reason: Protocol Last Admin: 12/02/17 21:10 Dose: 167 mls/hr Levothyroxine Sodium (Synthroid) 150 mcg PO DAILY [facility] Last Admin: 12/02/17 11:57 Dose: 150 mcg Lisinopril (Zestril) 5 mg PO DAILY [facility] Metoprolol Tartrate (Lopressor) 25 mg PO BID [facility] Last Admin: 12/02/17 17:48 Dose: Not Given Morphine Sulfate (Morphine) 2 mg IVP Q4 PRN PRN Reason: Pain, severe (8-10) Last Admin: 12/02/17 22:26 Dose: 2 mg Non-Formulary Medication (Ursodiol [Jefferson Forte]) 500 mg PO DAILY [facility] Last Admin: 12/02/17 13:10 Dose: Not Given Ondansetron HCl (Zofran Inj) 4 mg IVP Q4H PRN PRN Reason: Nausea/Vomiting Ondansetron HCl (Zofran Inj) 4 mg IVP ONCE PRN PRN Reason: Nausea/Vomiting Pantoprazole Sodium (Protonix Ec Tab) 40 mg PO ACB [facility] Last Admin: 12/02/17 08:48 Dose: 40 mg Sennosides (Senokot Tab) 17.2 mg PO HS [facility] Last Admin: 12/02/17 21:11 Dose: 17.2 mg - Labs Labs: 12/03/17 06:40 12/03/17 06:40 PT 16.4 SECONDS (9.4-12.5) H 12/01/17 16:35 INR 1.43 (0.93-1.08) H 12/01/17 16:35 APTT 32.3 Seconds (25.1-36.5) 12/01/17 16:35
[2017-12-03] MEDS: Vancomycin 1gm in NS 250ml 1 GM/250 ML BAG IVPB SCH ×2 (10:00→21:08)
[2017-12-03] MEDS: DiphenhydrAMINE 50 mg/ml Inj IVP SCH (10:33)
--- NOTE | 2017-12-03 10:41 | PQF ANEMIA ---
This form is a permanent part of the medical record Clarification of your documentation is requested to better reflect the severity of illness and intensity of treatment of your patient. Indicators present Pt w/ hx normocytic anemia, s/p ORIF. Pt required 2UPRBC intraop. Now w/ dropping H&h requiring further transfusions. Please document if acute blood loss anemia is being treated. x[] Anemia [x] Drop in H&H from []_10.6/ 33.4__ to []___7.9/ 24.4 [] Hypotension [] GI Bleed [x] Transfusion(s) [] Acute bleed other sites [] Tachycardia [] Surgical Procedure Blood Loss (expected not a complication) Other:[] Location in the medical record that reflects the above clinical findings: [x] OP report Treatment Provided: [x] 2UPRBC intraop & 2 UPRBC Post op PHYSICIAN'S RESPONSE Based on your medical judgment of the clinical indicators outlined above, are you treating this patient for a known or suspected: [] Acute blood loss anemia [] Chronic blood loss anemia [] Acute on Chronic blood loss anemia [] Anemia due to malignancy [] Anemia due to chemotherapy or radiation therapy [] Anemia of Chronic Disease, please specify: [] [] Other, please indicate type of anemia []____ [] If Unable to Determine, please check the box, sign and date. Present On Admission (POA) Indicator: [] Present at the time of admission [] Not present at the time of admission [] Clinically Undetermined In responding to this query, please exercise your independent professional judgment. The fact that a question is asked does not imply that any particular answer is desired or expected. Thank you for your clarification on this documentation. If you have any questions please call:[ ] [phone] * Thank you, [ ] Isabel Lopez RN CDS dairy machine operator farmworker PATEL
--- NOTE | 2017-12-03 12:33 | CP.PCM.PN ---
Subjective - Date & Time of Evaluation Date of Evaluation: 12/03/17 Time of Evaluation: 11:55 - Subjective Subjective: Had surgery yesterday, no fevers, not in distress. Objective - Vital Signs/Intake and Output Vital Signs (last 24 hours): Temp Pulse Resp BP Pulse Ox 98 F 86 20 133/67 97 12/03/17 08:23 12/03/17 08:23 12/03/17 08:23 12/03/17 08:23 12/03/17 08:23 Intake and Output: 12/03/17 12/03/17 06:59 18:59 Intake Total 0 Output Total 450 Balance -450 - Medications Medications: Current Medications Aspirin (Ecotrin) 81 mg PO DAILY [facility] Last Admin: 12/02/17 12:00 Dose: Not Given Cholestyramine Resin (Questran) 4 gm PO HS [facility] Last Admin: 12/02/17 21:11 Dose: 4 gm Cyanocobalamin (Vitamin B12 1000 Mcg/Ml Inj) 1,000 mcg IM DAILY [facility] Stop: 12/12/17 10:01 Diphenhydramine HCl (Benadryl) 25 mg IVP Q8H [facility] Stop: 12/03/17 17:31 Docusate Sodium (Colace) 100 mg PO TID [facility] Last Admin: 12/02/17 17:48 Dose: Not Given Folic Acid (Folic Acid) 1 mg PO DAILY [facility] Furosemide (Lasix) 20 mg IVP Q8H [facility] Stop: 12/03/17 17:31 Heparin Sodium (Porcine) (Heparin) 5,000 units SC Q8H [facility] PRN Reason: Protocol Last Admin: 12/02/17 05:30 Dose: 5,000 units Hydralazine HCl (Apresoline) 10 mg IVP Q6 PRN PRN Reason: Systolic Blood Pressure Hydralazine HCl (Apresoline) 10 mg IVP STAT [facility] Last Admin: 12/02/17 18:06 Dose: 10 mg Sodium Chloride (Sodium Chloride 0.9%) 1,000 mls @ 80 mls/hr IV .[id number] [facility] Last Admin: 12/02/17 11:39 Dose: 80 mls/hr Aztreonam (Azactam 1 Gm) 100 mls @ 100 mls/hr IVPB Q8 [facility] PRN Reason: Protocol Stop: 12/09/17 10:01 Last Admin: 12/03/17 06:01 Dose: 100 mls/hr Vancomycin HCl (Vancomycin 1gm) 1 gm in 250 mls @ 167 mls/hr IVPB Q12H [facility] PRN Reason: Protocol Last Admin: 12/02/17 21:10 Dose: 167 mls/hr Levothyroxine Sodium (Synthroid) 150 mcg PO DAILY [facility] Last Admin: 12/02/17 11:57 Dose: 150 mcg Lisinopril (Zestril) 5 mg PO DAILY [facility] Metoprolol Tartrate (Lopressor) 25 mg PO BID [facility] Last Admin: 12/02/17 17:48 Dose: Not Given Morphine Sulfate (Morphine) 2 mg IVP Q4 PRN PRN Reason: Pain, severe (8-10) Last Admin: 12/02/17 22:26 Dose: 2 mg Non-Formulary Medication (Ursodiol [Jefferson Forte]) 500 mg PO DAILY [facility] Last Admin: 12/02/17 13:10 Dose: Not Given Ondansetron HCl (Zofran Inj) 4 mg IVP Q4H PRN PRN Reason: Nausea/Vomiting Ondansetron HCl (Zofran Inj) 4 mg IVP ONCE PRN PRN Reason: Nausea/Vomiting Pantoprazole Sodium (Protonix Ec Tab) 40 mg PO ACB [facility] Last Admin: 12/02/17 08:48 Dose: 40 mg Sennosides (Senokot Tab) 17.2 mg PO HS [facility] Last Admin: 12/02/17 21:11 Dose: 17.2 mg - Labs Labs: 12/03/17 06:40 12/03/17 06:40 PT 16.4 SECONDS (9.4-12.5) H 12/01/17 16:35 INR 1.43 (0.93-1.08) H 12/01/17 16:35 APTT 32.3 Seconds (25.1-36.5) 12/01/17 16:35 - Constitutional Appears: Chronically Ill - Head Exam Head Exam: NORMAL INSPECTION - Neck Exam Neck Exam: absent: Meningismus - Respiratory Exam Respiratory Exam: Decreased Breath Sounds - Cardiovascular Exam Cardiovascular Exam: +S1, +S2 - GI/Abdominal Exam GI & Abdominal Exam: Soft. absent: Tenderness Assessment and Plan - Assessment and Plan (Free Text) Plan: Assessment right sided otomastoiditis left hip fracture, acute S/P surgery POD #1 paroxysmal atrial fibrillation HTN hypothyroidism arthritis Plan continue Vancomycin and Azactam day 2 and will continue to monitor clinically
[2017-12-03 13:04] LABS: HEPATITIS A IGM NEGATIVE (NEGATIVE); HEPATITIS B SURFACE AG Negative (NEGATIVE)
[2017-12-03 13:21] LABS: HEPATITIS C ANTIBODY NEGATIVE (NEGATIVE)
[2017-12-03 15:03] LABS: HEPATITIS B CORE AB NEGATIVE (NEGATIVE)
[2017-12-03] MEDS: Morphine 2 mg/ml ISec IVP PRN (18:09)
--- NOTE | 2017-12-03 21:09 | PN ---
DATE: 12/03/2017 CARDIOLOGY FOLLOWUP SUBJECTIVE: The patient is status post hip surgery for fracture. She is comfortable without shortness of breath and without chest pain. PHYSICAL EXAMINATION: VITAL SIGNS: Blood pressure is 125/46, the heart rate is in the 60s. NECK: Negative JVD. LUNGS: Decreased breath sounds without rales. HEART: Reveals S1, S2, with a 2/6 systolic ejection murmur. EXTREMITIES: Without edema. LABORATORY DATA: Hemoglobin is 7.9, from admission hemoglobin of 10.6. Chemistries are unremarkable. IMPRESSION: 1. Status post surgery for hip fracture. 2. History of paroxysmal atrial fibrillation. 3. Aortic valve sclerosis. 4. Anemia. 5. Diabetes mellitus. 6. Moderate pulmonary hypertension. PLAN: Given these findings, I agree with need for packed red blood cells. We will need to follow her hemoglobin carefully given her recent anticoagulation therapy. Once her hemoglobin is stable, I would restart her on anticoagulation for paroxysmal atrial fibrillation. Carmine Bailey MD
[2017-12-03] MEDS: Cholestyramine 4 gm/Pkt UD PO SCH (21:35)
[2017-12-04] MEDS ORDERED: DiphenhydrAMINE 50 mg/ml Inj IVP SCH (00:15)
[2017-12-04] MEDS: DiphenhydrAMINE 50 mg/ml Inj IVP SCH (00:24)
--- NOTE | 2017-12-04 03:14 | PN ---
DATE: 12/03/2017 SUBJECTIVE: The patient is seen in room 566, bed 1. The patient's daughter is at bedside. The patient is lying in the bed. According to the patient's daughter, the patient is complaining of pain because the patient has been recently turning and re-positioning. Overnight nurse's notes were reviewed. The patient underwent surgery yesterday for the left hip fracture. The patient is seen lying in the bed. The patient is alert, awake, responsive, hard of hearing. PHYSICAL EXAMINATION: VITAL SIGNS: T-max is 98.7; pulse 67, 89, 75, 63; blood pressure is 133/67, 132/57, 126/56; respirations 18; O2 sat is 97%. HEENT: Head: Examination normocephalic, atraumatic. HEENT examination shows pale conjunctivae. Dry oral mucosa. NECK: No neck rigidity. Positive hearing deficit. Soft carotid bruit. CHEST: Examination shows kyphosis. LUNGS: Examination shows no rales, crackles, or wheezing. CARDIOVASCULAR: Shows S1, S2, regular rhythm. Positive systolic murmur, left sternal border, right second intercostal space, left second intercostal space. ABDOMEN: Soft. Positive bowel sounds. No hepatosplenomegaly noted. No guarding. No rigidity or rebound tenderness. GENITALIA: Female. Positive Quiroz catheter. EXTREMITIES: Shows positive left hip and left thigh dressing. Decreased range of motion of the left lower extremity. Positive right lower extremity SCDs and HUMBERTO stockings noted. MUSCULOSKELETAL: Examination shows a body mass index of 18. NEUROLOGIC: The patient is alert, awake, responsive, hard of hearing, complaining of pain in the left hip. Gait examination not tested. DIAGNOSTICS: 12/03, WBC count is down to 12.6, hemoglobin/hematocrit 7.9/24.4, platelet 142. Granulocytes, 78% segs. Sodium 144, potassium 4.2, chloride 113, CO2 of 25, anion gap 10, BUN 21, creatinine 0.7, GFR greater than 60, glucose 103, hemoglobin A1c 5.5. Calcium 7.8, phosphorus 3.4, magnesium 2.3. LFTs are normal. Total protein 4.6, albumin 2.2. Vitamin B12 198. Thyroid panel is negative. Hepatitis A, B, C serologies and HIV was negative. The patient has been ordered two more units of PRBC today. IMPRESSION AND PLAN: 1. Status post mechanical fall. 2. Left hip pain. 3. Left hip intertrochanteric fracture. 4. Status post open reduction and internal fixation of the left hip comminuted intertrochanteric fracture with intramedullary nail, postoperative day one. 5. Gait dysfunction. 6. Hearing deficit. 7. Transient uncontrolled hypertension. 8. Dementia. 9. Possible delirium. 10. Leukocytosis with granulocytosis. 11. Normocytic anemia. 12. Status post packed red blood cell transfusion x3. 13. Hypomagnesemia. 14. Protein malnutrition. 15. Hypoalbuminemia. 16. Questionable systolic versus diastolic congestive heart failure with elevated BNP. 17. Vitamin B12 deficiency. 18. Proteinuria. 19. Trace ketonuria. 20. Bacteriuria. 21. B+ blood type. 22. Left ventricular ejection fraction of 55%. 23. Concentric left ventricular hypertrophy. 24. Mildly dilated left and right atrium. 25. Moderate aortic regurgitation and moderately thickened aortic valve. 26. Trace mitral regurgitation. 27. Tricuspid regurgitation with moderate pulmonary arterial hypertension with right ventricular systolic pressure of 59 mmHg. 28. Right-sided otomastoiditis with opacified middle ear and opacification and sclerosis of the mastoid air cell. 29. History of paroxysmal atrial fibrillation. 30. Frequent premature ventricular contraction. 31. 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 32. Gait dysfunction. 33. Deconditioning. PLAN: At this time, the patient has been ordered transfusion of 2 units of PRBC. The patient has been ordered repeat labs for the morning. Current consultation with Cardiology, Orthopedics, Infectious Disease. CURRENT MEDICATIONS: 1. Hydralazine 10 mg IV q. 6 hours p.r.n. 2. Azactam 1 gm IV q. 8. 3. Colace 100 mg three times a day. 4. Aspirin 81 mg daily. 5. Folic acid 1 mg daily. 6. Heparin 5000 subcutaneous q. 8. 7. Lopressor 25 mg twice a day. 8. Morphine 2 mg IV q. 4 hours p.r.n. 9. Protonix 40 mg daily. 10. Questran 4 gm at bedtime. 11. Senokot 17.2 mg at bedtime. 12. IV fluid 0.9 normal saline at 80 mL an hour. 13. Synthroid 150 mcg daily. 14. Jefferson Forte 500 mg daily. 15. Vancomycin 1 gm IV q. 12 by Infectious Disease. 16. Vitamin B12 at 1000 mcg IM daily. 17. Zestril 5 mg p.o. daily. 18. Zofran 4 mg IV q. 4 p.r.n. The patient also has poor access for which the patient has been consulted with Dr. Carmine Banda for PICC line placement. At present, the patient will be continued on the above therapeutic intervention. The patient is awaiting physical therapy evaluation. The patient is to be seen by physical therapist regarding recommendation for therapy. In view of the patient's medical condition and acute , it seems like the patient will most likely benefit from subacute rehab. The patient's condition, diagnosis, test results, further overall management was discussed and explained to the patient's daughter who is present at the bedside, and all details explained in layman's language. All questions concerned answered. Dictated and electronically signed, not read. Signing off Matt Villegas MD
[2017-12-04] MEDS: Aztreonam 1 Gm in NS 100mL 100 ML IVPB SCH ×2 (07:34→14:31)
[2017-12-04 07:48] LABS: BASO # 0.02 K/mm3 (0.0-2.0); BASO % 0.2 % (0.0-3.0); EOS % 0.2 % (1.5-5.0); GRAN # 9.25 (1.4-6.5); GRAN % 76.9 % (50.0-68.0); HEMOGLOBIN 9.1 g/dL (12.0-16.0); LYMPH # 1.3 (1.2-3.4); LYMPH % 10.5 % (22.0-35.0); MEAN CELL VOLUME 88.6 fl (80.0-105.0); MEAN CORPUSCULAR HEMOGLOBIN 29.6 pg (25.0-35.0); MEAN CORPUSCULAR HGB CONC 33.5 g/dl (31.0-37.0); MEAN PLATELET VOLUME 9.6 fl (7.0-11.0); MONO # 1.5 (0.1-0.6); MONO % 12.2 % (1.0-6.0); RBC 3.07 10^6/uL (3.5-6.1)
[2017-12-04] MEDS: Pantoprazole 40 mg EC Tab PO SCH (08:00)
[2017-12-04 08:05] LABS: ALB/GLOB RATIO 0.9 (1.1-1.8); ALBUMIN 2.3 g/dL (3.0-4.8); ALT/SGPT 28 U/L (7-56); AST/SGOT 26 U/L (14-36); BILIRUBIN,DIRECT 0.4 mg/dL (0.0-0.4); BLOOD UREA NITROGEN 24 mg/dL (7-21); CALCIUM 7.9 mg/dL (8.4-10.5); GFR AFRICAN-AMERICAN > 60; GFR NON-AFRICAN AMERICAN 60; MAGNESIUM 1.8 mg/dL (1.7-2.2)
--- NOTE | 2017-12-04 08:30 | CP.PCM.PN ---
Subjective - Date & Time of Evaluation Date of Evaluation: 12/04/17 Time of Evaluation: 08:24 - Subjective Subjective: Patient POD#2 s/p ORIF L intertroch fx. Patient laying comfortable in bed, not in any apparent distress. VSS Hgb 9.1 now L hip: dressings removed. Incision sites clean and intact. No erythema or drainage. No signs of infection or cellulitis Incision sites cleaned and new light dry dressings applied. thigh and calf soft nontender. NVI distally POD#2 s/p ORIF L intertroch fx Cont physical therapy Cont TEDS and SCDS From orthopedic standpoint patient ok to be discharged to subacute rehab Objective - Vital Signs/Intake and Output Vital Signs (last 24 hours): Temp Pulse Resp BP Pulse Ox 99.3 F 85 19 150/66 97 12/04/17 03:59 12/04/17 03:59 12/04/17 03:59 12/04/17 03:59 12/03/17 08:23 Intake and Output: 12/04/17 12/04/17 06:59 18:59 Intake Total 1425 Output Total 900 Balance 525 - Medications Medications: Current Medications Aspirin (Ecotrin) 81 mg PO DAILY [facility] Last Admin: 12/03/17 09:29 Dose: 81 mg Cholestyramine Resin (Questran) 4 gm PO HS [facility] Last Admin: 12/03/17 21:35 Dose: 4 gm Cyanocobalamin (Vitamin B12 1000 Mcg/Ml Inj) 1,000 mcg IM DAILY [facility] Stop: 12/12/17 10:01 Last Admin: 12/03/17 09:30 Dose: 1,000 mcg Docusate Sodium (Colace) 100 mg PO TID [facility] Last Admin: 12/03/17 18:06 Dose: Not Given Folic Acid (Folic Acid) 1 mg PO DAILY [facility] Last Admin: 12/03/17 09:29 Dose: 1 mg Heparin Sodium (Porcine) (Heparin) 5,000 units SC Q8H [facility] PRN Reason: Protocol Last Admin: 12/02/17 05:30 Dose: 5,000 units Hydralazine HCl (Apresoline) 10 mg IVP Q6 PRN PRN Reason: Systolic Blood Pressure Sodium Chloride (Sodium Chloride 0.9%) 1,000 mls @ 80 mls/hr IV .[id number] [facility] Last Admin: 12/02/17 11:39 Dose: 80 mls/hr Aztreonam (Azactam 1 Gm) 100 mls @ 100 mls/hr IVPB Q8 [facility] PRN Reason: Protocol Stop: 12/09/17 10:01 Last Admin: 12/04/17 07:34 Dose: 100 mls/hr Vancomycin HCl (Vancomycin 1gm) 1 gm in 250 mls @ 167 mls/hr IVPB Q12H [facility] PRN Reason: Protocol Last Admin: 12/03/17 21:08 Dose: 167 mls/hr Levothyroxine Sodium (Synthroid) 150 mcg PO DAILY [facility] Last Admin: 12/03/17 09:29 Dose: 150 mcg Lisinopril (Zestril) 5 mg PO DAILY [facility] Last Admin: 12/03/17 09:29 Dose: 5 mg Metoprolol Tartrate (Lopressor) 25 mg PO BID [facility] Last Admin: 12/03/17 18:09 Dose: 25 mg Morphine Sulfate (Morphine) 2 mg IVP Q4 PRN PRN Reason: Pain, severe (8-10) Last Admin: 12/03/17 18:09 Dose: 2 mg Non-Formulary Medication (Ursodiol [Jefferson Forte]) 500 mg PO DAILY [facility] Last Admin: 12/03/17 09:33 Dose: Not Given Ondansetron HCl (Zofran Inj) 4 mg IVP Q4H PRN PRN Reason: Nausea/Vomiting Pantoprazole Sodium (Protonix Ec Tab) 40 mg PO ACB [facility] Last Admin: 12/03/17 08:30 Dose: 40 mg Sennosides (Senokot Tab) 17.2 mg PO HS [facility] Last Admin: 12/03/17 21:34 Dose: 17.2 mg - Labs Labs: 12/04/17 07:00 12/04/17 07:00 PT 16.4 SECONDS (9.4-12.5) H 12/01/17 16:35 INR 1.43 (0.93-1.08) H 12/01/17 16:35 APTT 32.3 Seconds (25.1-36.5) 12/01/17 16:35
[2017-12-04 09:12] VITALS: RESP 20; O2SAT 98
[2017-12-04] MEDS ORDERED: Potassium Chloride 20 mEq ER Tab PO STA (09:22)
[2017-12-04] MEDS: URSODIOL 500 MG PO SCH (10:00)
[2017-12-04] MEDS: Levothyroxine 150 MCG TAB PO SCH (11:07)
[2017-12-04] MEDS: Vancomycin 1gm in NS 250ml 1 GM/250 ML BAG IVPB SCH (11:12)
[2017-12-04] MEDS ORDERED: Potassium Chloride 20 mEq ER Tab PO ONE (13:38)
--- NOTE | 2017-12-04 15:50 | PN ---
DATE: 12/04/2017 CARDIOLOGY FOLLOWUP SUBJECTIVE: The patient is without complaints. PHYSICAL EXAMINATION: VITAL SIGNS: Stable. NECK: Negative JVD. LUNGS: Without rales. HEART: S1, S2. EXTREMITIES: Without edema. LABORATORY DATA: Hemoglobin is 9.1, post transfusion. IMPRESSION: 1. Status post hip fracture. 2. Anemia. 3. Atrial fibrillation. Given these findings, once we were able to show the hemoglobin is stable, the patient will need to be replaced back on her Eliquis for a thromboembolic prevention from atrial fibrillation. I have discussed this with the family in detail. Carmine Bailey MD
[2017-12-04] MEDS: Morphine 2 mg/ml ISec IVP PRN (16:53)
[2017-12-04 17:13] VITALS: TEMP 98.8
--- NOTE | 2017-12-04 17:56 | CP.PCM.PN ---
Subjective - Date & Time of Evaluation Date of Evaluation: 12/04/17 Time of Evaluation: 11:55 - Subjective Subjective: Comfortable, no fevers, not in distress. Objective - Vital Signs/Intake and Output Vital Signs (last 24 hours): Temp Pulse Resp BP Pulse Ox 99.3 F 85 19 150/66 97 12/04/17 03:59 12/04/17 03:59 12/04/17 03:59 12/04/17 03:59 12/03/17 08:23 Intake and Output: 12/04/17 12/04/17 06:59 18:59 Intake Total 1425 Output Total 900 Balance 525 - Medications Medications: Current Medications Aspirin (Ecotrin) 81 mg PO DAILY [facility] Last Admin: 12/03/17 09:29 Dose: 81 mg Cholestyramine Resin (Questran) 4 gm PO HS [facility] Last Admin: 12/03/17 21:35 Dose: 4 gm Cyanocobalamin (Vitamin B12 1000 Mcg/Ml Inj) 1,000 mcg IM DAILY [facility] Stop: 12/12/17 10:01 Last Admin: 12/03/17 09:30 Dose: 1,000 mcg Docusate Sodium (Colace) 100 mg PO TID [facility] Last Admin: 12/03/17 18:06 Dose: Not Given Folic Acid (Folic Acid) 1 mg PO DAILY [facility] Last Admin: 12/03/17 09:29 Dose: 1 mg Heparin Sodium (Porcine) (Heparin) 5,000 units SC Q8H [facility] PRN Reason: Protocol Last Admin: 12/02/17 05:30 Dose: 5,000 units Hydralazine HCl (Apresoline) 10 mg IVP Q6 PRN PRN Reason: Systolic Blood Pressure Sodium Chloride (Sodium Chloride 0.9%) 1,000 mls @ 80 mls/hr IV .[id number] [facility] Last Admin: 12/02/17 11:39 Dose: 80 mls/hr Aztreonam (Azactam 1 Gm) 100 mls @ 100 mls/hr IVPB Q8 [facility] PRN Reason: Protocol Stop: 12/09/17 10:01 Last Admin: 12/04/17 07:34 Dose: 100 mls/hr Vancomycin HCl (Vancomycin 1gm) 1 gm in 250 mls @ 167 mls/hr IVPB Q12H [facility] PRN Reason: Protocol Last Admin: 12/03/17 21:08 Dose: 167 mls/hr Levothyroxine Sodium (Synthroid) 150 mcg PO DAILY [facility] Last Admin: 12/03/17 09:29 Dose: 150 mcg Lisinopril (Zestril) 5 mg PO DAILY [facility] Last Admin: 12/03/17 09:29 Dose: 5 mg Metoprolol Tartrate (Lopressor) 25 mg PO BID [facility] Last Admin: 12/03/17 18:09 Dose: 25 mg Morphine Sulfate (Morphine) 2 mg IVP Q4 PRN PRN Reason: Pain, severe (8-10) Last Admin: 12/03/17 18:09 Dose: 2 mg Non-Formulary Medication (Ursodiol [Jefferson Forte]) 500 mg PO DAILY [facility] Last Admin: 12/03/17 09:33 Dose: Not Given Ondansetron HCl (Zofran Inj) 4 mg IVP Q4H PRN PRN Reason: Nausea/Vomiting Pantoprazole Sodium (Protonix Ec Tab) 40 mg PO ACB [facility] Last Admin: 12/03/17 08:30 Dose: 40 mg Sennosides (Senokot Tab) 17.2 mg PO HS [facility] Last Admin: 12/03/17 21:34 Dose: 17.2 mg - Labs Labs: 12/04/17 07:00 12/04/17 07:00 PT 16.4 SECONDS (9.4-12.5) H 12/01/17 16:35 INR 1.43 (0.93-1.08) H 12/01/17 16:35 APTT 32.3 Seconds (25.1-36.5) 12/01/17 16:35 - Constitutional Appears: Non-toxic - Head Exam Head Exam: NORMAL INSPECTION - ENT Exam ENT Exam: Mucous Membranes Moist - Neck Exam Neck Exam: absent: Meningismus - Respiratory Exam Respiratory Exam: Decreased Breath Sounds - Cardiovascular Exam Cardiovascular Exam: +S1, +S2 - GI/Abdominal Exam GI & Abdominal Exam: Soft. absent: Tenderness Assessment and Plan - Assessment and Plan (Free Text) Plan: Assessment right sided otomastoiditis left hip fracture, acute S/P surgery POD #2 paroxysmal atrial fibrillation HTN hypothyroidism arthritis Plan continue Vancomycin and Azactam day 3 and will continue to monitor clinically - can be switched to PO Avelox when ready for discharge
[2017-12-04 18:14] VITALS: BP 147/69; PULSE 92
--- NOTE | 2017-12-05 17:12 | DS ---
FINAL PROGRESS NOTE AND DISCHARGE SUMMARY The patient was accepted to [facility], the patient's family's first choice. The patient was cleared by Orthopedics for discharge to subacute rehab which the patient's family including the daughters are in agreement. The patient is seen lying in the bed in room 566, bed 1. The patient was seen by Dr. Sarkar. Overnight nurse's notes were reviewed. The patient was found to be confused and alert, awake, oriented x1. PHYSICAL EXAMINATION: VITAL SIGNS: T-max is 98.8; heart rate 92, 95, 96, 83; blood pressure 147/69, 148/57, 156/73, 192/72, 150/66; respirations 20; O2 sat 98%. Urine output yesterday was 400, today is 500. GENERAL: The patient is sitting up in the bed. The patient is alert, awake, responsive. The patient's son and daughter at bedside. The patient appears to be much more awake, responsive, less in pain. HEAD: Normocephalic, atraumatic. HEENT : Shows pinkish conjunctivae. Anicteric sclerae. No oropharyngeal lesion. Positive bitemporal facial muscle wasting and cachexia noted. Questionable soft carotid bruit noted. CHEST: Kyphosis. LUNGS: Show no rales, crackles, or wheezing. CARDIOVASCULAR: S1 and S2, regular rhythm. Positive systolic murmur left sternal border, right second intercostal space, left second intercostal space noted. ABDOMEN: Soft. Positive bowel sounds. GENITALIA: Female. Quiroz catheter has been removed. Positive left thigh dressing noted. No edema, no erythema or hematoma noted. MUSCULOSKELETAL: Shows a body mass index of 18. The patient appears to be cachectic and appears to have muscle wasting. DIAGNOSTICS: On 12/04/2017: WBC 12.0, hemoglobin and hematocrit 9.1 and 27.2, platelets 146. Granulocytes 77% segs. Sodium 143, potassium 3.2, chloride 110, CO2 of 27, anion gap 10, BUN 24, creatinine 0.9, GFR greater than 60, glucose 96. Hemoglobin A1c 5.1, calcium 7.9, phosphorus 3.0, magnesium 1.8, total protein 4.7, albumin 2.3. Hepatitis A, B, C serologies negative. Blood type B+. The patient received 4 units of PRBC. FINAL IMPRESSION, PLAN, AND DISCHARGE DIAGNOSES: 1. Deconditioning. 2. Status post mechanical fall. 3. Left femur intertrochanteric fracture. 4. Hearing deficits and dysfunction. 5. Cachexia and muscle wasting. 6. Protein malnutrition. 7. Gait dysfunction secondary to fall. 8. History of paroxysmal atrial fibrillation. 9. Transient uncontrolled hypertension. 10. Left hip pain secondary to left intertrochanteric fracture. 11. Normocytic anemia. 12. Granulocytosis. 13. Leukocytosis. 14. Hypokalemia. 15. Mild prerenal kidney injury. 16. Hypomagnesemia. 17. Hypoalbuminemia. 18. History of iron deficiency. 19. Proteinuria. 20. Bacteriuria. 21. History of hypothyroidism. 22. 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 23. Left ventricular ejection fraction of 55%. 24. Concentric left ventricular hypertrophy. 25. Mildly dilated left and right atrium. 26. Moderate aortic regurgitation with moderately thickened aortic valve. 27. Mild mitral regurgitation with mildly thickened mitral valve. 28. Tricuspid regurgitation with moderate pulmonary arterial hypertension with right ventricular systolic pressure of almost 60 mmHg 29. Severe vitamin B12 deficiency. 30. Status post packed red blood cell transfusion x4. 31. Right-sided otomastoiditis. 32. Status post open reduction and internal fixation of the left intertrochanteric fracture, postoperative day #2. 33. History of dementia. 34. Constipation. DISCHARGE MEDICATIONS: Will be as follows: The patient can be switched over to Avelox as per Dr. Clark's recommendation upon discharge to complete therapy. Hydralazine 10 mg IV q. 6 hours p.r.n., Colace liquid 100 mg three times a day, Ecotrin 81 mg daily, folic acid 1 mg daily, heparin 5000 subcu q. 8 until Eliquis started, potassium supplementation was done today, Lopressor 25 mg twice a day, morphine 2 mg IV q. 4 hours p.r.n., Protonix 40 mg daily, Questran 4 g at bedtime, Senokot 17.2 mg at bedtime, Synthroid 150 mcg daily, Jefferson Forte 500 mg daily, vitamin B12 1000 mcg IM daily for total 10 doses, Zestril 5 mg daily, Zofran 4 mg IV q. 4 hours p.r.n. The patient's other discharge medications are Eliquis 2.5 mg twice a day to be started when the patient's hemoglobin is consistently around 10 g, Vasotec 2.5 mg daily, Avelox 400 mg twice a day, omeprazole 40 mg daily. The patient has been cleared for discharge to subacute rehab. I have met with the patient's son, Samuel, and daughter, Jacquelyn at the bedside. I have explained to the patient's family about the patient's diagnoses, diagnostic test results, need for physical therapy, ambulation therapy, need for continuation and discharge to subacute rehab for further physical therapy, occupational therapy, ambulation therapy, and gait training. The patient's family has chosen [facility] as their first choice for subacute rehab. The patient's daughter has been extensively explained the recommendation by cardiology, Dr. Bailey, that felt Eliquis should be only started once the patient's hemoglobin is stable secondary to the risk of bleeding. Time spent in the entire discharge process more than 45 minutes. Dictated and electronically signed, not read. Matt Villegas MD
== END 2017-12-04 21:02 | DRG 481 ==
LOC: ED 15:41 → ERH 18:04 → 5RNO 20:51
PROVIDERS: ADMIT Internal Medicine; ATTEND Internal Medicine
PROC: 0QS706Z Reposition Left Upper Femur with Intramedullary Internal Fixation Device, Open Approach (ICD-10-PCS; principal; 2017-12-02 15:00)
DX: S72.142A Displaced intertrochanteric fracture of left femur, initial encounter for closed fracture (principal); E46 Unspecified protein-calorie malnutrition; E11.65 Type 2 diabetes mellitus with hyperglycemia; E83.42 Hypomagnesemia; I08.3 Combined rheumatic disorders of mitral, aortic and tricuspid valves; I11.0 Hypertensive heart disease with heart failure; I27.21 Secondary pulmonary arterial hypertension; I48.0 Paroxysmal atrial fibrillation; I42.0 Dilated cardiomyopathy; I50.22 Chronic systolic (congestive) heart failure; K92.2 Gastrointestinal hemorrhage, unspecified; D64.9 Anemia, unspecified; W01.0XXA Fall on same level from slipping, tripping and stumbling without subsequent striking against object, initial encounter; D72.829 Elevated white blood cell count, unspecified; E03.9 Hypothyroidism, unspecified; E53.8 Deficiency of other specified B group vitamins; E78.5 Hyperlipidemia, unspecified; F03.90 Unspecified dementia, unspecified severity, without behavioral disturbance, psychotic disturbance, mood disturbance, and anxiety; H91.90 Unspecified hearing loss, unspecified ear; I49.1 Atrial premature depolarization; I49.3 Ventricular premature depolarization; K21.9 Gastro-esophageal reflux disease without esophagitis; M19.90 Unspecified osteoarthritis, unspecified site; M40.209 Unspecified kyphosis, site unspecified; M77.30 Calcaneal spur, unspecified foot; Z79.01 Long term (current) use of anticoagulants; Z79.899 Other long term (current) drug therapy; Z87.891 Personal history of nicotine dependence; Z88.2 Allergy status to sulfonamides; Z95.1 Presence of aortocoronary bypass graft; Z97.4 Presence of external hearing-aid

== ENCOUNTER 2017-12-25 19:14 | Inpatient (IN) | payer MEDICARE ==
[2017-12-25 19:15] VITALS: BMI 17.9
[2017-12-25 20:13] LABS: BASO # 0.09 K/mm3 (0.0-2.0); BASO % 0.7 % (0.0-3.0); EOS # 1.2 (0.0-0.7); EOS % 9.6 % (1.5-5.0); GRAN # 8.63 (1.4-6.5); GRAN % 71.6 % (50.0-68.0); HEMOGLOBIN 9.4 g/dL (12.0-16.0); LYMPH # 1.1 (1.2-3.4); LYMPH % 8.7 % (22.0-35.0); MEAN CELL VOLUME 93.1 fl (80.0-105.0); MEAN CORPUSCULAR HEMOGLOBIN 29.3 pg (25.0-35.0); MEAN CORPUSCULAR HGB CONC 31.4 g/dl (31.0-37.0); MEAN PLATELET VOLUME 9.2 fl (7.0-11.0); MONO # 1.1 (0.1-0.6); MONO % 9.4 % (1.0-6.0); RBC 3.21 10^6/uL (3.5-6.1); RED CELL DISTRIBUTION WIDTH 16.4 % (11.5-14.5); WHITE BLOOD COUNT 12.1 10^3/ul (4.5-11.0)
[2017-12-25 20:22] LABS: INR 1.59 (0.93-1.08); PARTIAL THROMBOPLASTIN TIME 33.5 Seconds (25.1-36.5); PROTHROMBIN TIME 18.3 SECONDS (9.4-12.5)
[2017-12-25 20:35] LABS: ALB/GLOB RATIO 0.9 (1.1-1.8); ALBUMIN 2.7 g/dL (3.0-4.8); CALCIUM 7.6 mg/dL (8.4-10.5)
[2017-12-25 20:43] LABS: TROPONIN I 0.04 ng/mL
[2017-12-25] MEDS: Sodium Chloride 0.9% 1,000 ML IV SCH (21:26)
--- NOTE | 2017-12-25 21:26 | ED PDOC ---
Arrival/HPI - General Chief Complaint: Weakness/Neurological Deficit Time Seen by Provider: 12/25/17 19:20 Historian: Patient - History of Present Illness Narrative History of Present Illness (Text): 12/25/17 21:23 An 87 year old female, whose past medical history includes paroxysmal A- Fib, HTN, hypothyroidism is brought into the emergency department via EMS from alf for decreasing pulse oximetry today. The patient is a poor historian, ROS/HPI limited. PMD: Dr. Izaiah Rosales Time/Duration: Other (Today) Symptom Onset: Sudden Symptom Course: Unchanged Activities at Onset: Rest, Light Context: Home ([facility]) Past Medical History - Provider Review Nursing Documentation Reviewed: Yes - Infectious Disease Hx of Infectious Diseases: None - Cardiac Hx Cardiac Disorders: Yes Hx Hypertension: Yes - Pulmonary Hx Respiratory Disorders: No - Neurological Hx Neurological Disorder: Yes (VERTIGO) Hx Dementia: Yes (DOES NOT TAKE THE MEDICATION) - HEENT Hx HEENT Disorder: Yes (wears hearing aids(BILATERAL)) - Renal Hx Renal Disorder: No - Endocrine/Metabolic Hx Hypothyroidism: Yes - Hematological/Oncological Hx Blood Transfusions: No Hx Blood Transfusion Reaction: No - Integumentary Hx Dermatological Disorder: Yes (RIGHT FOOT STASIS ULCER) - Musculoskeletal/Rheumatological Hx Arthritis: Yes - Gastrointestinal Hx Gastrointestinal Disorders: No - Genitourinary/Gynecological Hx Genitourinary Disorders: No - Psychiatric Hx Psychophysiologic Disorder: No Hx Substance Use: No - Surgical History Other/Comment: Hip Surgery 11/2017 - Anesthesia Hx Anesthesia Reactions: No Hx Malignant Hyperthermia: No Family/Social History - Physician Review Nursing Documentation Reviewed: Yes Family/Social History: No Known Family HX Smoking Status: Never Smoked Hx Alcohol Use: No Hx Substance Use: No Allergies/Home Meds Allergies/Adverse Reactions: Allergies Penicillins Allergy (Verified 12/01/17 21:07) ANAPHYLAXIS Sulfa (Sulfonamide Antibiotics) Allergy (Verified 12/01/17 21:07) ANAPHYLAXIS Home Medications: Home Meds Medication Instructions Recorded Confirmed Acetaminophen [Tylenol 325mg tab] 650 mg PO Q4 PRN 12/25/17 12/25/17 Aluminum Hydroxide/Magnesium 30 ml PO Q4 PRN 12/25/17 12/25/17 [Maalox Plus 30 ml] Apixaban [Eliquis] 2.5 mg PO BID 12/25/17 12/25/17 Aspirin [Adult Low Dose Aspirin EC] 81 mg PO DAILY 12/25/17 12/25/17 Docusate Sodium [Diocto] 50 mg PO TID 12/25/17 12/25/17 Epoetin Eduin [Procrit] 10,000 unit SQ MWF 12/25/17 12/25/17 Folic Acid 1 mg PO DAILY 12/25/17 12/25/17 LORazepam [Ativan] 0.25 mg PO Q8 PRN 12/25/17 12/25/17 Levothyroxine [Synthroid] 0.2 mg PO DAILY 12/25/17 12/25/17 Lisinopril [Zestril] 5 mg PO DAILY 12/25/17 12/25/17 Magnesium Hydroxide [Milk of 30 ml PO DAILY PRN 12/25/17 12/25/17 Magnesia] Menthol/Zinc Oxide [Calmoseptine] 1 oin TP Q8 12/25/17 12/25/17 Metoprolol Tartrate [Lopressor] 25 mg PO BID 12/25/17 12/25/17 Mupirocin 2% Ointment [Bactroban 1 appl TP DAILY 12/25/17 12/25/17 Ointment] Ondansetron ODT [Zofran ODT] 4 mg PO Q4 PRN 12/25/17 12/25/17 Pantoprazole Sodium [Protonix] 40 mg PO DAILY 12/25/17 12/25/17 Potassium Chloride [Potassium 20 meq PO DAILY 12/25/17 12/25/17 Chloride Oral Soln] Sennosides [Senna] 17.2 mg PO HS 12/25/17 12/25/17 hydrALAZINE [hydralazine 10 mg PO Q6 PRN 12/25/17 12/25/17 Hydrochloride] Review of Systems - Physician Review All systems were reviewed & negative as marked: Yes - Review of Systems Systems not reviewed;Unavailable: Other (Poor Historian.) Physical Exam Vital Signs Reviewed: Yes Vital Signs Temp Pulse Resp BP Pulse Ox 12/25/17 23:02 90 164/80 H 12/25/17 22:28 98 H 18 154/91 H 95 12/25/17 19:22 98.6 F 94 H 19 167/91 H 96 Temperature: Afebrile Blood Pressure: Normal Pulse: Regular Respiratory Rate: Normal Appearance: Positive for: Well-Appearing, Non-Toxic, Comfortable Pain Distress: None Mental Status: Positive for: Alert and Oriented X 3 - Systems Exam Head: Present: Atraumatic, Normocephalic Pupils: Present: PERRL Extroacular Muscles: Present: EOMI Conjunctiva: Present: Normal Mouth: Present: Moist Mucous Membranes Neck: Present: Normal Range of Motion Respiratory/Chest: No: Rales, Rhonchi Cardiovascular: Present: Regular Rate and Rhythm, Normal S1, S2. No: Murmurs Abdomen: Present: Normal Bowel Sounds. No: Tenderness, Distention, Peritoneal Signs Back: Present: Normal Inspection Upper Extremity: Present: Normal Inspection. No: Cyanosis, Edema Lower Extremity: Present: Normal Inspection. No: Edema Neurological: Present: GCS=15, CN II-XII Intact, Speech Normal Skin: Present: Warm, Dry, Normal Color. No: Rashes Psychiatric: Present: Alert, Oriented x 3, Normal Insight, Normal Concentration Medical Decision Making ED Course and Treatment: 12/25/17 21:26 Impression: An 87 year old female is brought into the emergency department from alf for decreasing pulse oximetry. Plan: -- EKG -- Chest X-ray -- Lower Extremity Vein Ultrasound -- Blood Culture -- Urinalysis -- IV Fluids, Potassium Chloride -- Reassess and disposition Progress Notes: 12/25/17 21:13: Discussed case in detail with Dr. Villegas. Will admit patient to his service. 12/25/17 22:00 EKG: Ordered, reviewed, and independently interpreted the EKG. Rate : 93 BPM Rhythm : A- Fib Interpretation : Non specific ST-segments. - Lab Interpretations Lab Results: 12/25/17 19:50 12/25/17 19:50 Lab Results 12/25/17 20:40: Influenza Typ A,B (EIA) Negative for flu a/b 12/25/17 19:50: Sodium 145, Potassium 3.0 L, Chloride 104, Carbon Dioxide 30, Anion Gap 13, BUN 30 H, Creatinine 1.4 H, Est GFR ( Amer) 43, Est GFR ( Non-Af Amer) 36, Random Glucose 84, Calcium 7.6 L, Total Bilirubin 0.8, AST 21, ALT 24, Alkaline Phosphatase 120, Lactate Dehydrogenase 933 H, Total Creatine Kinase 38, Troponin I 0.04 D, NT-Pro-B Natriuret Pep 36616 H, Total Protein 5.7 L, Albumin 2.7 L, Globulin 3.0, Albumin/Globulin Ratio 0.9 L 12/25/17 19:50: PT 18.3 H, INR 1.59 H, APTT 33.5 12/25/17 19:50: WBC 12.1 H, RBC 3.21 L, Hgb 9.4 L, Hct 29.9 L, MCV 93.1 D, MCH 29.3, MCHC 31.4, RDW 16.4 H, Plt Count 316, MPV 9.2, Gran % 71.6 H, Lymph % ( Auto) 8.7 L, Bandera % (Auto) 9.4 H, Eos % (Auto) 9.6 H, Baso % (Auto) 0.7, Gran # 8.63 H, Lymph # (Auto) 1.1 L, Bandera # (Auto) 1.1 H, Eos # (Auto) 1.2 H, Baso # ( Auto) 0.09 I have reviewed the lab results: Yes - RAD Interpretation Narrative RAD Interpretations (Text): 12/25/17 23:53 no infiltrates or chf Radiology Orders: 12/25/17 19:41 DUPLEX LOWER EXTRM VEIN BILAT [US] Stat 12/25/17 19:42 CHEST PORTABLE [RAD] Stat - EKG Interpretation Interpreted by ED Physician: Yes Type: 12 lead EKG - Medication Orders Current Medication Orders: Acetaminophen (Tylenol 325mg Tab) 650 mg PO Q4 PRN PRN Reason: Pain, Mild (1-3) Apixaban (Eliquis) 2.5 mg PO BID [facility]YE PRN Reason: Protocol Aspirin (Ecotrin) 81 mg PO DAILY [facility] Cyanocobalamin (Vitamin B12 1000 Mcg/Ml Inj) 1,000 mcg IM DAILY [facility] Stop: 12/30/17 10:01 Darbepoetin Eduin (Aranesp) 60 mcg SC QWK [facility] Folic Acid (Folic Acid) 1 mg PO DAILY [facility] Sodium Chloride (Sodium Chloride 0.9%) 1,000 mls @ 80 mls/hr IV .[id number] [facility] Last Admin: 12/25/17 21:26 Dose: 80 mls/hr eMAR Start Stop Document 12/25/17 21:26 AB (Rec: 12/25/17 21:26 AB [id number] Intravenous Solution Start Date 12/25/17 Start Time 21:26 End Date 12/25/17 Potassium Chloride (Potassium Chloride 20 Meq/100 Ml) 20 meq in 100 mls @ 50 mls/hr IVPB Q2H [facility] Stop: 12/26/17 00:44 Last Admin: 12/25/17 21:26 Dose: 50 mls/hr eMAR Start Stop Document 12/25/17 21:26 AB (Rec: 12/25/17 21:26 AB [id number]) Intravenous Solution Start Date 12/25/17 Start Time 21:26 End Date 12/25/17 Levalbuterol HCl (Xopenex) 0.63 mg IH [id number] [facility] Last Admin: 12/25/17 23:08 Dose: 0.63 mg Levothyroxine Sodium (Synthroid) 200 mcg PO DAILY [facility] Lorazepam (Ativan) 0.25 mg PO Q8 PRN; Protocol PRN Reason: Restlessness Metoprolol Tartrate (Lopressor) 25 mg PO BID [facility] Last Admin: 12/25/17 23:02 Dose: 25 mg MAR Pulse and Blood Pressure Document 12/25/17 23:02 AB (Rec: 12/25/17 23:04 AB [id number] Pulse Pulse Rate (60-90) 90 Blood Pressure Blood Pressure (100/60-150/90) 164/80 Pantoprazole Sodium (Protonix Ec Tab) 40 mg PO DAILY [facility] Potassium Chloride (Potassium Chloride Oral Soln) 20 meq PO Q8H [facility] Last Admin: 12/25/17 23:04 Dose: 20 meq Sennosides (Senokot Tab) 17.2 mg PO HS [facility] Discontinued Medications Darbepoetin Eduin (Aranesp) 25 mcg SC MWF [facility] Vancomycin HCl (Vancomycin 1gm) 1 gm in 250 mls @ 167 mls/hr IVPB STAT STA PRN Reason: Protocol Stop: 12/25/17 22:58 Last Admin: 12/25/17 22:54 Dose: 167 mls/hr eMAR Start Stop Document 12/25/17 22:54 AB (Rec: 12/25/17 22:54 AB [id number]) Intravenous Solution Start Date 12/25/17 Start Time 22:54 End Date 12/25/17 Potassium Chloride (Potassium Chloride Oral Soln) 20 meq PO DAILY [facility] Potassium Chloride (Potassium Chloride Oral Soln) 20 meq PO BID [facility] - Scribe Statement The provider has reviewed the documentation as recorded by the Scribe Earline Avelar Provider Scribe Attestation: All medical record entries made by the Scribe were at my direction and personally dictated by me. I have reviewed the chart and agree that the record accurately reflects my personal performance of the history, physical exam, medical decision making, and the department course for this patient. I have also personally directed, reviewed, and agree with the discharge instructions and disposition. Disposition/Present on Arrival - Present on Arrival Any Indicators Present on Arrival: No History of DVT/PE: No History of Uncontrolled Diabetes: No Urinary Catheter: No History of Decub. Ulcer: No History Surgical Site Infection Following: None - Disposition Have Diagnosis and Disposition been Completed?: Yes Diagnosis: Elevated brain natriuretic peptide (BNP) level, Dehydration Disposition: HOSPITALIZED Disposition Time: 22:00 Condition: FAIR
[2017-12-25] MEDS ORDERED: Vancomycin 1gm in NS 250ml 1 GM/250 ML BAG IVPB STA (21:29)
[2017-12-25] MEDS: Potassium Chloride 20 mEq/15 ml LIQ UD PO SCH (23:04)
[2017-12-25] MEDS: Levalbuterol 0.63 MG/3 ML Inhal Soln UD IH SCH (23:08)
[2017-12-26 00:27] LABS: TROPONIN I 0.04 ng/mL
[2017-12-26 02:43] LABS: TROPONIN I 0.04 ng/mL
[2017-12-26 05:24] LABS: URINE BILIRUBIN NEGATIVE (NEGATIVE); URINE BLOOD MODERATE (NEGATIVE); URINE GLUCOSE (UA) NEGATIVE (NEGATIVE); URINE LEUKOCYTE ESTERASE TRACE Leu/uL (NEGATIVE); URINE PROTEIN 30 mg/dL (<30 mg/dL); URINE UROBILINOGEN 0.2 E.U./dL (<1 E.U./dL)
[2017-12-26 05:25] LABS: URINE APPEARANCE CLEAR (CLEAR); URINE COLOR YELLOW (YELLOW)
[2017-12-26 05:45] LABS: URINE BACTERIA MANY (NEG); URINE EPITHELIAL CELLS 0 - 2 /hpf (0-5)
[2017-12-26 06:10] LABS: BASO # 0.11 K/mm3 (0.0-2.0); BASO % 0.8 % (0.0-3.0); EOS # 1.1 (0.0-0.7); GRAN # 11.05 (1.4-6.5); HEMOGLOBIN 9.4 g/dL (12.0-16.0); LYMPH % 6.7 % (22.0-35.0); MEAN CELL VOLUME 94.2 fl (80.0-105.0); MEAN CORPUSCULAR HEMOGLOBIN 28.7 pg (25.0-35.0); MEAN CORPUSCULAR HGB CONC 30.5 g/dl (31.0-37.0); MEAN PLATELET VOLUME 9.5 fl (7.0-11.0); MONO # 0.9 (0.1-0.6); MONO % 6.5 % (1.0-6.0); RBC 3.27 10^6/uL (3.5-6.1); RED CELL DISTRIBUTION WIDTH 16.8 % (11.5-14.5); WHITE BLOOD COUNT 14.2 10^3/ul (4.5-11.0)
[2017-12-26 06:33] LABS: IRON 11 ug/dL (45-180)
[2017-12-26 06:38] LABS: % IRON SATURATION 7 % (20-55); TOTAL IRON BINDING CAPACITY 165 ug/dL (265-497)
[2017-12-26 06:42] LABS: TROPONIN I 0.06 ng/mL
[2017-12-26 06:43] LABS: LDL CHOLESTEROL 40 mg/dL (0-129)
[2017-12-26 06:47] LABS: ALB/GLOB RATIO 0.9 (1.1-1.8); ALBUMIN 2.8 g/dL (3.0-4.8); ALT/SGPT 26 U/L (7-56); AST/SGOT 22 U/L (14-36); BILIRUBIN,DIRECT 0.5 mg/dL (0.0-0.4); BLOOD UREA NITROGEN 29 mg/dL (7-21); CALCIUM 7.6 mg/dL (8.4-10.5); GFR AFRICAN-AMERICAN 47; GFR NON-AFRICAN AMERICAN 39; HDL CHOLESTEROL 31 mg/dL (29-60)
[2017-12-26 06:50] LABS: FREE T4 0.84 ng/dL (0.78-2.19); T4 4.1 ug/dL (5.5-11.0)
[2017-12-26] MEDS ORDERED: Meropenem 1,000 MG in Sodium Chloride 0.9% 100 ML IVPB STA (07:40)
[2017-12-26] MEDS ORDERED: Meropenem IV 1 gm in NS 50 ML IVPB ONE (08:00)
--- NOTE | 2017-12-26 08:08 | RAD ---
HISTORY: Shortness of breath COMPARISON: 12/01/2017. FINDINGS: LUNGS: The lungs are hyperinflated and there is peribronchial thickening with chronic changes in both lungs. No focal consolidation. PLEURA: No significant pleural effusion identified, no pneumothorax apparent. CARDIOVASCULAR: Normal. OSSEOUS STRUCTURES: No significant abnormalities. VISUALIZED UPPER ABDOMEN: Normal. OTHER FINDINGS: None. IMPRESSION: No active pulmonary disease. COPD.
[2017-12-26] MEDS: Levalbuterol 0.63 MG/3 ML Inhal Soln UD IH SCH ×3 (08:40→19:39)
[2017-12-26] MEDS: Acetylcysteine 20% Inhal Soln (4ml) IH SCH ×3 (08:40→19:39)
--- NOTE | 2017-12-26 08:53 | RAD ---
PROCEDURE: Left Hip X-ray Radiographs. HISTORY: hx left hip sx 2wks ago COMPARISON: 12/02/2017. FINDINGS: BONES: There is diffuse bone demineralization. The pelvic ring is intact. Status post open reduction and internal fixation of left transcervical fracture, bone alignment is normal. There is some callus formation in the medial proximal fracture fragments. The fracture line is still visualized along the lateral cortex of the proximal femur. JOINTS: Normal. SOFT TISSUES: Normal. OTHER FINDINGS: None. IMPRESSION: Status post open reduction and internal fixation of left transcervical fracture, interval progressive healing along the medial fracture line.
--- NOTE | 2017-12-26 09:07 | US ---
HISTORY: Leg pain and swelling. Evaluate for DVT PHYSICIAN(S): Carmine Banda MD. TECHNIQUE: Duplex sonography and color-flow Doppler with graded compression were used to evaluate the deep venous systems of both lower extremities. FINDINGS: The visualized deep venous systems of both lower extremities are sonographically normal and compressible. Normal wave forms and augmentation are seen. There is no sonographic evidence for deep venous thrombosis in the visualized segments of both lower extremities. IMPRESSION: No sonographic evidence for deep venous thrombosis in the visualized segments of both lower extremities.
--- NOTE | 2017-12-26 09:50 | CARD ---
APPROVED REPORT EKG Measurement Heart [id number] <Conclusion> Sinus rhythm with Abberrantly Conducted complexes and premature Junctional complexes Possible Right ventricular hypertrophy/V Leads Placement.
[2017-12-26] MEDS ORDERED: Potassium Chloride 20 mEq/15 ml LIQ UD PO SCH ×2 (10:00)
[2017-12-26] MEDS ORDERED: EPOETIN ALFA 10000 UNIT SQ SCH (10:00)
[2017-12-26] MEDS ORDERED: Darbepoetin Alfa 25 mcg/ml Inj SC SCH (10:00)
[2017-12-26] MEDS: Pantoprazole 40 mg EC Tab PO SCH (10:00)
[2017-12-26] MEDS: Levothyroxine 200 MCG TAB PO SCH (10:00)
--- NOTE | 2017-12-26 10:08 | CARD ---
APPROVED REPORT EKG Measurement Heart [id number] [place] [id number] <Conclusion> Sinus rhythm with marked sinus arrhythmia with junctional escape complexes High Voltage LVH.
--- NOTE | 2017-12-26 11:16 | HP ---
HISTORY OF PRESENT ILLNESS: This patient is an 87-year-old white female. She was transferred from [place] [facility] with a history of hypoxia and also shortness of breath, cough. The patient has respiratory difficulty. She was treated in the emergency room and admitted to Dr. Villegas's medical service. The patient has a past history of atrial fibrillation. The patient has history of atherosclerotic heart disease. The patient has history of peripheral vascular disease with ulceration of the toe in the right foot. The patient has history of hypertension and hypothyroidism. PHYSICAL EXAMINATION: GENERAL: The patient is emaciated. She is in respiratory distress with shortness of breath and coughing. VITAL SIGNS: The pulse is 92, blood pressure 129/89, the heartbeat is in atrial fibrillation, the patient's respirations are 20 per minute, the patient's temperature is 101.2. HEENT: The patient's head is normocephalic. She has graying of the hair noted. NECK: Supple. The carotid pulses are present. JVP is not elevated. Thyroid is clinically not enlarged. LUNGS: Trachea is central. Breath sounds are diminished bilaterally. There are occasional rhonchi bilaterally also. HEART: Atrial fibrillation with rapid to moderate ventricular response. ABDOMEN: Soft. Liver and spleen not palpable. CENTRAL NERVOUS SYSTEM: The patient is conscious. She has hearing problem. She has movement of all four limbs, but ability to walk is diminished. She was transferred from the [place] [facility]. ALLERGIES: THE PATIENT IS ALLERGIC TO SULFA. THE PATIENT ALSO HAS ALLERGY TO PENICILLIN. The patient has no DNR order placed from the chart. MEDICATIONS: Consists of respiratory treatment with Mucomyst. The patient gets Aranesp 60 mcg once a week. The patient is on Ativan 0.25 mg q.8 hours for agitation, aspirin 81 mg daily. The patient is on Eliquis 2.5 mg b.i.d. The patient gets metoprolol 25 mg b.i.d., folic acid 1 mg daily. She is placed on meropenem 1 gm q.8 hours. She is on pantoprazole 40 mg IV daily, potassium chloride 20 mEq daily. The patient is on Senokot for constipation, Synthroid 200 mcg daily for hypothyroidism. The patient is also placed on vitamin B12 injections. LABORATORY DATA: The patient's blood work done in the hospital shows white count of 14,200. She has hemoglobin of 9.4, differential shows a shift to the left consistent with infection. The patient's chemistry; the sodium is 147, which shows mild dehydration. The patient has BUN of 29 and creatinine of 1.3 and the patient's total iron is 11. The patient is iron deficient. She has anemia secondary to multiple nutritional factors. Albumin is 2.8, shows nutritional deficit. The patient's cardiac enzymes and troponins were within normal range. The troponin was elevated to 0.06, that is noted. DIAGNOSES: The patient has rapid onset of atrial fibrillation, respiratory distress, sepsis, hypothyroidism and the patient's cardiac evaluation has to be done based on the fact that the patient has elevated troponin. Her overall prognosis is guarded. CONDITION: Clinically acute. Tonio Martinez MD MTDJuvenal
[2017-12-26] MEDS: Linezolid 600 mg in D5W 300 ml 600 MG/300 ML BAG IVPB SCH ×2 (11:19→22:50)
[2017-12-26 12:25] LABS: FOLATE > 20.0 ng/mL
[2017-12-26] MEDS: Aztreonam 1 Gm in NS 100mL 100 ML IVPB SCH ×3 (12:34→22:50)
[2017-12-26] MEDS ORDERED: DiphenhydrAMINE 50 mg/ml Inj IVP ONE (13:27)
[2017-12-26] MEDS: Potassium Chloride 20 mEq/15 ml LIQ UD PO SCH ×2 (13:30→23:05)
[2017-12-26] MEDS ORDERED: Digoxin 250 mcg (0.25 mg) Tab PO ONE (13:36)
[2017-12-26 13:52] VITALS: PULSE 155
--- NOTE | 2017-12-26 14:08 | CP.PCM.PN ---
Subjective - Date & Time of Evaluation Date of Evaluation: 12/26/17 Time of Evaluation: 13:56 - Subjective Subjective: Patient approx 4 weeks s/p ORIF left intertroch fracture who was admitted last night for decreased O2 sat, SOB and cough from [facility].Patient has a hx of dementia. Doppler done on admit, which was negative for any DVTs X-rays were obtained for left hip L hip: incision sites healed and intact. There is no erythema or swelling. Patient does not demonstrate any signs of pain with passive internal or external rotation or with passive hip flexion. Thigh and calf are soft nontender. NVI distally x-rays of left hip reviewed, showing the left transcervical fracture with the hardware in good positioning.Fracture line is still visualized, but alignment unchanged Pt 4 weeks s/p ORIF left hip fx Discussed with Dr. Dhillon Will order PT for gait training, WBAT Objective - Vital Signs/Intake and Output Vital Signs (last 24 hours): Temp Pulse Resp BP Pulse Ox 98.4 F 92 H 20 129/89 95 12/26/17 12:32 12/26/17 13:49 12/26/17 11:43 12/26/17 13:49 12/26/17 06:00 Intake and Output: 12/26/17 12/26/17 06:59 18:59 Intake Total 120 Output Total 200 Balance -80 - Medications Medications: Current Medications Acetaminophen (Tylenol 325mg Tab) 650 mg PO Q4 PRN PRN Reason: Pain, Mild (1-3) Acetaminophen (Tylenol 650 Mg Supp) 650 mg RC Q6H PRN PRN Reason: Temp>= 99.5 Last Admin: 12/26/17 12:32 Dose: 650 mg Acetylcysteine (Acetylcysteine 20%) 4 ml IH [id number] [facility] Last Admin: 12/26/17 08:40 Dose: 4 ml Apixaban (Eliquis) 2.5 mg PO BID [facility] PRN Reason: Protocol Last Admin: 12/26/17 10:00 Dose: Not Given Aspirin (Ecotrin) 81 mg PO DAILY [facility] Last Admin: 12/26/17 10:00 Dose: Not Given Cyanocobalamin (Vitamin B12 1000 Mcg/Ml Inj) 1,000 mcg IM DAILY [facility] Stop: 12/30/17 10:01 Last Admin: 12/26/17 12:31 Dose: 1,000 mcg Darbepoetin Eduin (Aranesp) 60 mcg SC QWK [facility] Folic Acid (Folic Acid) 1 mg PO DAILY [facility] Last Admin: 12/26/17 10:00 Dose: Not Given Sodium Chloride (Sodium Chloride 0.9%) 1,000 mls @ 80 mls/hr IV .[id number] [facility] Last Admin: 12/25/17 21:26 Dose: 80 mls/hr Aztreonam (Azactam 1 Gm) 100 mls @ 100 mls/hr IVPB Q8 [facility] PRN Reason: Protocol Stop: 01/02/18 09:01 Last Admin: 12/26/17 12:34 Dose: 100 mls/hr Linezolid (Zyvox 600mg/300ml D5w) 600 mg in 300 mls @ 200 mls/hr IVPB Q12 [facility] PRN Reason: Protocol Stop: 01/02/18 10:01 Last Admin: 12/26/17 11:19 Dose: 200 mls/hr Levalbuterol HCl (Xopenex) 0.63 mg IH [id number] [facility] Last Admin: 12/26/17 08:40 Dose: 0.63 mg Levothyroxine Sodium (Synthroid) 200 mcg PO DAILY [facility] Last Admin: 12/26/17 10:00 Dose: Not Given Lorazepam (Ativan) 0.25 mg PO Q8 PRN; Protocol PRN Reason: Restlessness Last Admin: 12/26/17 03:34 Dose: 0.25 mg Metoprolol Tartrate (Lopressor) 25 mg PO BID [facility] Last Admin: 12/26/17 13:49 Dose: 25 mg Oseltamivir Phosphate (Tamiflu) 30 mg PO BID [facility] PRN Reason: Protocol Last Admin: 12/26/17 10:00 Dose: Not Given Pantoprazole Sodium (Protonix Ec Tab) 40 mg PO DAILY [facility] Last Admin: 12/26/17 10:00 Dose: Not Given Potassium Chloride (Potassium Chloride Oral Soln) 20 meq PO Q8H [facility] Last Admin: 12/25/17 23:04 Dose: 20 meq Sennosides (Senokot Tab) 17.2 mg PO HS [facility] Last Admin: 12/26/17 00:49 Dose: 17.2 mg - Labs Labs: 12/26/17 05:30 12/26/17 05:30 PT 18.3 SECONDS (9.4-12.5) H 12/25/17 19:50 INR 1.59 (0.93-1.08) H 12/25/17 19:50 APTT 33.5 Seconds (25.1-36.5) 12/25/17 19:50
[2017-12-26] MEDS: Darbepoetin Alfa 60 mcg/ml Inj SC SCH (17:22)
[2017-12-26] MEDS: Sodium Chloride 0.9% 1,000 ML IV SCH ×2 (17:23→21:50)
--- NOTE | 2017-12-26 18:04 | CP.PCM.CON ---
History of Present Illness - History of Present Illness History of Present Illness: 87 year old female with PMH of paroxysmal atrial fibrillation, HTN, hypothyroidism, arthritis, right otomastoiditis, was recently [place] [facility] [place] left hip fracture which was operated on. She was then sent back to the intermediate. She was doing well there when she was noted to have decreased oxygen sats. She was also noted to have maculopapular rash all over her body which she was scratching. She also developed fever during this admission and was found to have leukocytosis. There is no note of vomiting, no diarrhea, no respiratory distress, no convulsions, no loss of consciousness. Patient is a poor historian and ROS is limited. Infectious Diseases consult is requested to further evaluate and manage. Review of Systems - Review of Systems All systems: reviewed and no additional remarkable complaints except (as per HPI ) Past Patient History - Infectious Disease Hx of Infectious Diseases: None - Past Social History Smoking Status: Never Smoked - CARDIAC Hx Cardiac Disorders: Yes Hx Cardia Arrhythmia: Yes (afib) Hx Hypertension: Yes Hx Peripheral Vascular Disease: Yes - PULMONARY Hx Respiratory Disorders: No - NEUROLOGICAL Hx Neurological Disorder: Yes (VERTIGO) Hx Dementia: Yes (DOES NOT TAKE THE MEDICATION) - HEENT Hx HEENT Problems: Yes (wears hearing aid Left ear) - RENAL Hx Chronic Kidney Disease: No - ENDOCRINE/METABOLIC Hx Endocrine Disorders: Yes Hx Hypothyroidism: Yes - HEMATOLOGICAL/ONCOLOGICAL Hx Blood Disorders: No - INTEGUMENTARY Hx Dermatological Problems: Yes (RIGHT FOOT STASIS ULCER) - MUSCULOSKELETAL/RHEUMATOLOGICAL Hx Arthritis: Yes Hx Falls: Yes - GASTROINTESTINAL Hx Gastrointestinal Disorders: No - GENITOURINARY/GYNECOLOGICAL Hx Genitourinary Disorders: No - PSYCHIATRIC Hx Psychophysiologic Disorder: No - SURGICAL HISTORY Other/Comment: Hip Surgery 11/2017 - ANESTHESIA Hx Anesthesia Reactions: No Hx Malignant Hyperthermia: No Meds Allergies/Adverse Reactions: Allergies Allergy/AdvReac Type Severity Reaction Status Date / Time Penicillins Allergy ANAPHYLAXIS Verified 12/01/17 21:07 Sulfa (Sulfonamide Allergy ANAPHYLAXIS Verified 12/01/17 21:07 Antibiotics) - Medications Medications: Current Medications Acetaminophen (Tylenol 325mg Tab) 650 mg PO Q4 PRN PRN Reason: Pain, Mild (1-3) Acetaminophen (Tylenol 650 Mg Supp) 650 mg RC Q6H PRN PRN Reason: Temp>= 99.5 Acetylcysteine (Acetylcysteine 20%) 4 ml IH [id number] [facility] Last Admin: 12/26/17 08:40 Dose: 4 ml Apixaban (Eliquis) 2.5 mg PO BID [facility] PRN Reason: Protocol Last Admin: 12/26/17 00:49 Dose: 2.5 mg Aspirin (Ecotrin) 81 mg PO DAILY [facility] Cyanocobalamin (Vitamin B12 1000 Mcg/Ml Inj) 1,000 mcg IM DAILY [facility] Stop: 12/30/17 10:01 Darbepoetin Eduin (Aranesp) 60 mcg SC QWK [facility] Folic Acid (Folic Acid) 1 mg PO DAILY [facility] Sodium Chloride (Sodium Chloride 0.9%) 1,000 mls @ 80 mls/hr IV .[id number] [facility] Last Admin: 12/25/17 21:26 Dose: 80 mls/hr Levalbuterol HCl (Xopenex) 0.63 mg IH [id number] [facility] Last Admin: 12/26/17 08:40 Dose: 0.63 mg Levothyroxine Sodium (Synthroid) 200 mcg PO DAILY [facility] Lorazepam (Ativan) 0.25 mg PO Q8 PRN; Protocol PRN Reason: Restlessness Last Admin: 12/26/17 03:34 Dose: 0.25 mg Metoprolol Tartrate (Lopressor) 25 mg PO BID [facility] Last Admin: 12/25/17 23:02 Dose: 25 mg Pantoprazole Sodium (Protonix Ec Tab) 40 mg PO DAILY [facility] Potassium Chloride (Potassium Chloride Oral Soln) 20 meq PO Q8H [facility] Last Admin: 12/25/17 23:04 Dose: 20 meq Sennosides (Senokot Tab) 17.2 mg PO [facility] Last Admin: 12/26/17 00:49 Dose: 17.2 mg Physical Exam - Constitutional Appears: Chronically Ill - Head Exam Head Exam: NORMAL INSPECTION - ENT Exam ENT Exam: Mucous Membranes Moist - Neck Exam Neck exam: Negative for: Meningismus - Respiratory Exam Respiratory Exam: Decreased Breath Sounds - Cardiovascular Exam Cardiovascular Exam: +S1, +S2 - GI/Abdominal Exam GI & Abdominal Exam: Soft. absent: Tenderness - Skin Skin Exam: Rash (maculopapular, generalized) Results - Vital Signs Recent Vital Signs: Last Vital Signs Temp 101.2 F H 12/26/17 07:00 Pulse 92 H 12/26/17 06:00 Resp 19 12/26/17 06:00 BP 129/89 12/26/17 06:00 Pulse Ox 95 12/26/17 06:00 - Labs Result Diagrams: 12/26/17 05:30 12/26/17 05:30 Labs: Laboratory Results - last 24 hr 12/25/17 12/25/17 12/26/17 21:59 23:27 01:45 WBC RBC Hgb Hct MCV MCH MCHC RDW Plt Count MPV Gran % Lymph % (Auto) [place] % (Auto) Eos % (Auto) Baso % (Auto) Gran # Lymph # (Auto) [place] # (Auto) Eos # (Auto) Baso # (Auto) Sodium Potassium Chloride Carbon Dioxide Anion Gap BUN Creatinine Est GFR ( Amer) Est GFR (Non-Af Amer) Random Glucose Lactic Acid 1.0 Calcium Magnesium Iron TIBC % Saturation Total Bilirubin Direct Bilirubin AST ALT Alkaline Phosphatase Total Creatine Kinase 43 45 Troponin I 0.04 0.04 Total Protein Albumin Globulin Albumin/Globulin Ratio Triglycerides Cholesterol LDL Cholesterol Direct HDL Cholesterol Free T4 Thyroxine (T4) TSH 3rd Generation Urine Color Urine Appearance Urine pH Ur Specific [place] Urine Protein Urine Glucose (UA) Urine Ketones Urine Blood Urine Nitrate Urine Bilirubin Urine Urobilinogen Ur Leukocyte Esterase Urine RBC Urine WBC Ur Epithelial Cells Urine Bacteria Urine Other Blood Type Antibody Screen Crossmatch BBK History Checked 12/26/17 12/26/17 12/26/17 04:35 05:30 05:30 WBC 14.2 H RBC 3.27 L Hgb 9.4 L Hct 30.8 L MCV 94.2 MCH 28.7 MCHC 30.5 L RDW 16.8 H Plt Count 278 MPV 9.5 Gran % 78.0 H Lymph % (Auto) 6.7 L [place] % (Auto) 6.5 H Eos % (Auto) 8.0 H Baso % (Auto) 0.8 Gran # 11.05 H Lymph # (Auto) 1.0 L [place] # (Auto) 0.9 H Eos # (Auto) 1.1 H Baso # (Auto) 0.11 Sodium Potassium Chloride Carbon Dioxide Anion Gap BUN Creatinine Est GFR ( Amer) Est GFR (Non-Af Amer) Random Glucose Lactic Acid Calcium Magnesium Iron TIBC % Saturation Total Bilirubin Direct Bilirubin AST ALT Alkaline Phosphatase Total Creatine Kinase Troponin I Total Protein Albumin Globulin Albumin/Globulin Ratio Triglycerides Cholesterol LDL Cholesterol Direct HDL Cholesterol Free T4 Thyroxine (T4) TSH 3rd Generation Urine Color Yellow Urine Appearance Clear Urine pH 6.0 Ur Specific [place] 1.020 Urine Protein 30 H Urine Glucose (UA) Negative Urine Ketones Trace H Urine Blood Moderate H Urine Nitrate Positive H Urine Bilirubin Negative Urine Urobilinogen 0.2 Ur Leukocyte Esterase Trace H Urine RBC 2 - 5 Urine WBC 5 - 10 Ur Epithelial Cells 0 - 2 Urine Bacteria Many Urine Other Uyeast Blood Type B POSITIVE Antibody Screen Negative Crossmatch See Detail BBK History Checked Patient has bt 12/26/17 12/26/17 12/26/17 05:30 05:30 05:30 WBC RBC Hgb Hct MCV MCH MCHC RDW Plt Count MPV Gran % Lymph % (Auto) [place] % (Auto) Eos % (Auto) Baso % (Auto) Gran # Lymph # (Auto) [place] # (Auto) Eos # (Auto) Baso # (Auto) Sodium 147 Potassium 3.8 Chloride 108 H Carbon Dioxide 28 Anion Gap 14 BUN 29 H Creatinine 1.3 H Est GFR ( Amer) 47 Est GFR (Non-Af Amer) 39 Random Glucose 83 Lactic Acid Calcium 7.6 L Magnesium 1.4 L Iron 11 L TIBC 165 L % Saturation 7 L Total Bilirubin 0.7 Direct Bilirubin 0.5 H AST 22 ALT 26 Alkaline Phosphatase 114 Total Creatine Kinase 49 Troponin I 0.06 D Total Protein 5.9 Albumin 2.8 L Globulin 3.1 Albumin/Globulin Ratio 0.9 L Triglycerides 129 Cholesterol 90 L LDL Cholesterol Direct 40 HDL Cholesterol 31 Free T4 0.84 Thyroxine (T4) 4.1 L TSH 3rd Generation 1.51 Urine Color Urine Appearance Urine pH Ur Specific [place] Urine Protein Urine Glucose (UA) Urine Ketones Urine Blood Urine Nitrate Urine Bilirubin Urine Urobilinogen Ur Leukocyte Esterase Urine RBC Urine WBC Ur Epithelial Cells Urine Bacteria Urine Other Blood Type Antibody Screen Crossmatch BBK History Checked Assessment & Plan - Assessment and Plan (Free Text) Plan: Assessment systemic inflammatory response syndrome, R/O sepsis source to be determined maculopapular rash, consider drug rash history of right sided otomastoiditis left hip fracture S/P surgery paroxysmal atrial fibrillation HTN hypothyroidism arthritis Plan started Zyvox and Azactam pending blood, urine cx, PCT, CXR patient being given benadryl - rash distribution is all over the body, with same stage of the lesions all over the body, making drug rash more likely will monitor clinically
--- NOTE | 2017-12-26 19:58 | CON ---
CARDIOLOGY CONSULTATION HISTORY OF PRESENT ILLNESS: The patient is an 87-year-old woman who comes from the assisted with presumed lower pulse oximetry. PAST MEDICAL HISTORY: The patient's past medical history is notable for chronic dementia. She recently was here for repair of a fracture of her hip after a fall. PAST MEDICAL HISTORY: Also includes chronic atrial fibrillation in which she has been treated with Eliquis and Cardizem for heart rate control. In addition, she suffers from diabetes mellitus, aortic valvular sclerosis with aortic insufficiency, good LV function and moderate pulmonary hypertension. The rest of the history is unable to obtain. PHYSICAL EXAMINATION: VITAL SIGNS: Blood pressure is 129/89, heart rate is atrial fibrillation in the 90s. Temperature is 101. NECK: Negative JVD. LUNGS: Minimal rhonchi and crackles at the bases. HEART: Reveals S1 and S2. EXTREMITIES: Without edema. IMAGING STUDIES: Chest x-ray reveals COPD with no acute changes. LABORATORY DATA: Troponin of 0.04. BUN and creatinine are unremarkable. Hemoglobin is 9.4. IMPRESSION: 1. Increased A-a gradient. 2. Dementia. 3. Chronic atrial fibrillation. 4. Anemia. 5. Chronic obstructive pulmonary disease by x-ray. 6. Good left ventricular function. 7. Aortic valve sclerosis with aortic insufficiency. 8. Pulmonary hypertension. PLAN: Given these findings, we will obtain a stat ProBNP. The patient's A-a gradient is likely due to her pulmonary issues. Would suggest obtaining a pulmonary consultation. We will continue on her Eliquis as well as her beta-blockers for heart rate control. Carmine Bailey MD
[2017-12-26] MEDS ORDERED: Metoprolol 1 mg/ml Inj IVP STA (22:16)
[2017-12-27] MEDS: Levalbuterol 0.63 MG/3 ML Inhal Soln UD IH SCH ×4 (01:26→20:59)
[2017-12-27] MEDS: Acetylcysteine 20% Inhal Soln (4ml) IH SCH ×4 (01:26→20:59)
[2017-12-27] MEDS: Aztreonam 1 Gm in NS 100mL 100 ML IVPB SCH ×3 (05:18→21:50)
[2017-12-27 07:15] LABS: ALB/GLOB RATIO 0.9 (1.1-1.8); ALBUMIN 2.4 g/dL (3.0-4.8); BASO # 0.11 K/mm3 (0.0-2.0); BASO % 0.8 % (0.0-3.0); BILIRUBIN,DIRECT 0.5 mg/dL (0.0-0.4); CALCIUM 7.1 mg/dL (8.4-10.5); EOS # 0.1 (0.0-0.7); EOS % 0.7 % (1.5-5.0); GRAN # 10.86 (1.4-6.5); GRAN % 83.7 % (50.0-68.0); HEMOGLOBIN 8.8 g/dL (12.0-16.0); LYMPH # 1.3 (1.2-3.4); LYMPH % 10.2 % (22.0-35.0); MEAN CELL VOLUME 93.2 fl (80.0-105.0); MEAN CORPUSCULAR HEMOGLOBIN 28.3 pg (25.0-35.0); MEAN CORPUSCULAR HGB CONC 30.3 g/dl (31.0-37.0); MEAN PLATELET VOLUME 9.3 fl (7.0-11.0); MONO # 0.6 (0.1-0.6); MONO % 4.6 % (1.0-6.0); RBC 3.11 10^6/uL (3.5-6.1); RED CELL DISTRIBUTION WIDTH 16.9 % (11.5-14.5)
[2017-12-27] MEDS: Potassium Chloride 20 mEq/15 ml LIQ UD PO SCH ×3 (07:51→22:41)
--- NOTE | 2017-12-27 09:15 | CP.PCM.PN ---
Subjective - Date & Time of Evaluation Date of Evaluation: 12/27/17 Time of Evaluation: 08:15 - Subjective Subjective: (covering for Dr. Villegas) Patient is lying in bed. She is more alert than yesterday and appears to be less short of breath. Objective - Vital Signs/Intake and Output Vital Signs (last 24 hours): Temp Pulse Resp BP Pulse Ox 98.3 F 80 20 155/86 H 95 12/27/17 06:00 12/27/17 06:00 12/27/17 06:00 12/27/17 06:00 12/27/17 06:00 Intake and Output: 12/27/17 12/27/17 06:59 18:59 Intake Total 1250 0 Balance 1250 0 - Medications Medications: Current Medications Acetaminophen (Tylenol 325mg Tab) 650 mg PO Q4 PRN PRN Reason: Pain, Mild (1-3) Acetaminophen (Tylenol 650 Mg Supp) 650 mg RC Q6H PRN PRN Reason: Temp>= 99.5 Last Admin: 12/26/17 23:28 Dose: 650 mg Acetylcysteine (Acetylcysteine 20%) 4 ml IH [id number] [facility] Last Admin: 12/27/17 07:40 Dose: 4 ml Apixaban (Eliquis) 2.5 mg PO BID [facility] PRN Reason: Protocol Last Admin: 12/26/17 17:15 Dose: Not Given Aspirin (Ecotrin) 81 mg PO DAILY [facility] Last Admin: 12/26/17 10:00 Dose: Not Given Cyanocobalamin (Vitamin B12 1000 Mcg/Ml Inj) 1,000 mcg IM DAILY [facility] Stop: 12/30/17 10:01 Last Admin: 12/26/17 12:31 Dose: 1,000 mcg Darbepoetin Eduin (Aranesp) 60 mcg SC QWK [facility] Last Admin: 12/26/17 17:22 Dose: 60 mcg Folic Acid (Folic Acid) 1 mg PO DAILY [facility] Last Admin: 12/26/17 10:00 Dose: Not Given Sodium Chloride (Sodium Chloride 0.9%) 1,000 mls @ 80 mls/hr IV .[id number] [facility] Last Admin: 12/26/17 21:50 Dose: Not Given Aztreonam (Azactam 1 Gm) 100 mls @ 100 mls/hr IVPB Q8 [facility] PRN Reason: Protocol Stop: 01/02/18 09:01 Last Admin: 12/27/17 05:18 Dose: 100 mls/hr Linezolid (Zyvox 600mg/300ml D5w) 600 mg in 300 mls @ 200 mls/hr IVPB Q12 [facility] PRN Reason: Protocol Stop: 01/02/18 10:01 Last Admin: 12/26/17 22:50 Dose: 200 mls/hr Potassium Chloride (Potassium Chloride 20 Meq/100 Ml) 20 meq in 100 mls @ 50 mls/hr IVPB Q2H [facility] Stop: 12/27/17 12:59 Levalbuterol HCl (Xopenex) 0.63 mg IH [id number] [facility] Last Admin: 12/27/17 07:40 Dose: 0.63 mg Levothyroxine Sodium (Synthroid) 200 mcg PO DAILY [facility] Last Admin: 12/26/17 10:00 Dose: Not Given Lorazepam (Ativan) 0.25 mg PO Q8 PRN; Protocol PRN Reason: Restlessness Last Admin: 12/26/17 18:45 Dose: 0.25 mg Metoprolol Tartrate (Lopressor) 25 mg PO BID [facility] Last Admin: 12/26/17 18:43 Dose: 25 mg Oseltamivir Phosphate (Tamiflu) 30 mg PO BID [facility] PRN Reason: Protocol Last Admin: 12/26/17 17:17 Dose: Not Given Pantoprazole Sodium (Protonix Ec Tab) 40 mg PO DAILY [facility] Last Admin: 12/26/17 10:00 Dose: Not Given Potassium Chloride (Potassium Chloride Oral Soln) 20 meq PO Q8H [facility] Last Admin: 12/27/17 07:51 Dose: Not Given Sennosides (Senokot Tab) 17.2 mg PO HS [facility] Last Admin: 12/26/17 23:05 Dose: Not Given - Labs Labs: 12/27/17 05:20 12/27/17 05:20 PT 18.3 SECONDS (9.4-12.5) H 12/25/17 19:50 INR 1.59 (0.93-1.08) H 12/25/17 19:50 APTT 33.5 Seconds (25.1-36.5) 12/25/17 19:50 - Constitutional Appears: No Acute Distress - Respiratory Exam Respiratory Exam: Decreased Breath Sounds, NORMAL BREATHING PATTERN - Cardiovascular Exam Cardiovascular Exam: +S1, +S2 - GI/Abdominal Exam GI & Abdominal Exam: Soft, Normal Bowel Sounds - Neurological Exam Neurological Exam: Alert, Awake Assessment and Plan - Assessment and Plan (Free Text) Assessment: SIRS vs. sepsis r/o pneumonia AFib HTN Hypothyroidism recent surgery on Left hip fracture Plan: Patient appears to be more alert than yesterday. We will order pulmonary consult for the dyspnea. CXR shows peribronchial thickening and chronic changes. Doppler of the lower extremities is negative. According to the nurse, patient failed swallowing evaluation. We will order potassium rider for hypokalemia and switch po meds to IV.
[2017-12-27] MEDS: Pantoprazole 40 mg EC Tab PO SCH (09:52)
[2017-12-27] MEDS ORDERED: Metoprolol 1 mg/ml Inj IVP SCH (10:00)
[2017-12-27] MEDS: Sodium Chloride 0.9% 1,000 ML IV SCH ×3 (10:15→22:45)
[2017-12-27] MEDS ORDERED: Magnesium Sulfate 2 GM in Sodium Chloride 0.9% 100 ML IVPB ONE (10:57)
--- NOTE | 2017-12-27 11:09 | CP.PCM.PN ---
Subjective - Date & Time of Evaluation Date of Evaluation: 12/27/17 Time of Evaluation: 10:30 - Subjective Subjective: Patient still having fevers overnight, still with rash, still with cough, no rhinorrhea, no red eyes. Objective - Vital Signs/Intake and Output Vital Signs (last 24 hours): Temp Pulse Resp BP Pulse Ox 98.3 F 91 H 20 146/82 95 12/26/17 17:35 12/26/17 17:35 12/26/17 17:35 12/26/17 17:35 12/26/17 06:00 Intake and Output: 12/26/17 12/26/17 06:59 18:59 Intake Total 120 Output Total 200 Balance -80 - Medications Medications: Current Medications Acetaminophen (Tylenol 325mg Tab) 650 mg PO Q4 PRN PRN Reason: Pain, Mild (1-3) Acetaminophen (Tylenol 650 Mg Supp) 650 mg RC Q6H PRN PRN Reason: Temp>= 99.5 Last Admin: 12/26/17 12:32 Dose: 650 mg Acetylcysteine (Acetylcysteine 20%) 4 ml IH [id number] [facility] Last Admin: 12/26/17 14:09 Dose: 4 ml Apixaban (Eliquis) 2.5 mg PO BID [facility] PRN Reason: Protocol Last Admin: 12/26/17 17:15 Dose: Not Given Aspirin (Ecotrin) 81 mg PO DAILY [facility] Last Admin: 12/26/17 10:00 Dose: Not Given Cyanocobalamin (Vitamin B12 1000 Mcg/Ml Inj) 1,000 mcg IM DAILY [facility] Stop: 12/30/17 10:01 Last Admin: 12/26/17 12:31 Dose: 1,000 mcg Darbepoetin Eduin (Aranesp) 60 mcg SC QWK [facility] Last Admin: 12/26/17 17:22 Dose: 60 mcg Folic Acid (Folic Acid) 1 mg PO DAILY [facility] Last Admin: 12/26/17 10:00 Dose: Not Given Sodium Chloride (Sodium Chloride 0.9%) 1,000 mls @ 80 mls/hr IV .[id number] [facility] Last Admin: 12/26/17 17:23 Dose: 80 mls/hr Aztreonam (Azactam 1 Gm) 100 mls @ 100 mls/hr IVPB Q8 [facility] PRN Reason: Protocol Stop: 01/02/18 09:01 Last Admin: 12/26/17 16:08 Dose: Not Given Linezolid (Zyvox 600mg/300ml D5w) 600 mg in 300 mls @ 200 mls/hr IVPB Q12 [facility] PRN Reason: Protocol Stop: 01/02/18 10:01 Last Admin: 12/26/17 11:19 Dose: 200 mls/hr Levalbuterol HCl (Xopenex) 0.63 mg IH [id number] [facility] Last Admin: 12/26/17 14:10 Dose: 0.63 mg Levothyroxine Sodium (Synthroid) 200 mcg PO DAILY [facility] Last Admin: 12/26/17 10:00 Dose: Not Given Lorazepam (Ativan) 0.25 mg PO Q8 PRN; Protocol PRN Reason: Restlessness Last Admin: 12/26/17 03:34 Dose: 0.25 mg Metoprolol Tartrate (Lopressor) 25 mg PO BID [facility] Last Admin: 12/26/17 13:49 Dose: 25 mg Oseltamivir Phosphate (Tamiflu) 30 mg PO BID [facility] PRN Reason: Protocol Last Admin: 12/26/17 17:17 Dose: Not Given Pantoprazole Sodium (Protonix Ec Tab) 40 mg PO DAILY [facility] Last Admin: 12/26/17 10:00 Dose: Not Given Potassium Chloride (Potassium Chloride Oral Soln) 20 meq PO Q8H [facility] Last Admin: 12/26/17 13:30 Dose: Not Given Sennosides (Senokot Tab) 17.2 mg PO HS [facility] Last Admin: 12/26/17 00:49 Dose: 17.2 mg - Labs Labs: 12/26/17 05:30 12/26/17 05:30 PT 18.3 SECONDS (9.4-12.5) H 12/25/17 19:50 INR 1.59 (0.93-1.08) H 12/25/17 19:50 APTT 33.5 Seconds (25.1-36.5) 12/25/17 19:50 - Constitutional Appears: Chronically Ill - Head Exam Head Exam: NORMAL INSPECTION - Eye Exam Additional comments: no conjunctivitis noted - ENT Exam ENT Exam: Mucous Membranes Moist - Neck Exam Neck Exam: absent: Meningismus - Respiratory Exam Respiratory Exam: Decreased Breath Sounds - Cardiovascular Exam Cardiovascular Exam: +S1, +S2 - GI/Abdominal Exam GI & Abdominal Exam: Soft. absent: Tenderness Assessment and Plan - Assessment and Plan (Free Text) Plan: Assessment systemic inflammatory response syndrome, R/O sepsis from respiratory tract infection maculopapular rash, consider drug rash, R/O viral exanthem history of right sided otomastoiditis left hip fracture S/P surgery paroxysmal atrial fibrillation HTN hypothyroidism arthritis Plan continue Zyvox and Azactam day 2 and add Doxycycline; blood cx are negative, PCT is 0.35 patient being given benadryl - rash distribution is all over the body, with same stage of the lesions all over the body, making drug rash more likely, but viral exanthem still in the differential, including measles, although much lower in the differential diagnosis considerations since patient does not have coryza or conjunctivitis - will do Measles IgM, IgG and contact Infection Control will monitor clinically
[2017-12-27] MEDS: diltiaZEM IVPB 100mg in NS 100 ML IV SCH (11:43)
[2017-12-27] MEDS: Enoxaparin 60 mg Syringe SC SCH ×2 (11:44→22:43)
[2017-12-27] MEDS: Levothyroxine 200 MCG TAB PO SCH (11:45)
--- NOTE | 2017-12-27 11:47 | CARD ---
APPROVED REPORT EKG Measurement Heart [id number] <Conclusion> Sinus rhythm with premature atrial complexes Minimal voltage criteria for LVH, may be normal variant Borderline ECG
--- NOTE | 2017-12-27 12:03 | PN ---
DATE: 12/27/2017 REASON FOR DICTATION: Covering Dr. Carmine Bailey. REASON FOR CONSULTATION: AFib, altered mental status, hypoxemia. SUBJECTIVE: The patient denies any chest pain, lying flat on the bed. OBJECTIVE: GENERAL: Not in any apparent distress. VITAL SIGNS: Temperature afebrile, heart rate 80, blood pressure 155/86. HEENT: PERRLA. Extraocular muscles intact. NECK: Supple. No carotid bruit. No thyromegaly. CHEST: Clear to auscultation. HEART: S1 and S2 regular. ABDOMEN: Soft. EXTREMITIES: Clubbing and cyanosis negative. LABORATORY DATA: Blood workup as follows; WBC 13, hemoglobin 8.8, hematocrit 29.0, platelet count 256. Chemistry shows sodium 148, potassium 3.1, chloride 109, carbon dioxide 28, anion gap of 14, BUN 29, creatinine 1.4, total sugar 125, calcium 7.1, magnesium 1.3, total protein 5.3, albumin 2.4, albumin and globulin ratio 0.9. IMPRESSION: Anemia; hypokalemia; hypomagnesemia; renal insufficiency; severe protein-calorie malnutrition, which was present, but it is moderate, now severe; atrial fibrillation with rapid ventricular rate; hypertension; unable to take p.o., increased A-a gradient, dementia, anemia, chronic obstructive pulmonary disease. RECOMMENDATION: Aggressively supplement electrolytes. We will change to Lovenox and IV Cardizem because the patient is unable to take p.o. Further recommendations after hospital course. We will follow with you. Thank you, Dr. Martinez for providing us opportunity in taking care of Susanne Chairez. We will transfer care on Friday to Dr. Carmine Bailey. Matma Alcantara MD
[2017-12-27] MEDS: Linezolid 600 mg in D5W 300 ml 600 MG/300 ML BAG IVPB SCH ×2 (12:48→22:41)
[2017-12-28] MEDS: Acetylcysteine 20% Inhal Soln (4ml) IH SCH ×4 (04:06→21:05)
[2017-12-28] MEDS: Levalbuterol 0.63 MG/3 ML Inhal Soln UD IH SCH ×4 (04:06→21:05)
[2017-12-28] MEDS: Aztreonam 1 Gm in NS 100mL 100 ML IVPB SCH ×3 (06:31→21:05)
[2017-12-28] MEDS: diltiaZEM IVPB 100mg in NS 100 ML IV SCH ×3 (06:32→21:14)
--- NOTE | 2017-12-28 09:12 | CP.PCM.PN ---
Subjective - Date & Time of Evaluation Date of Evaluation: 12/28/17 Time of Evaluation: 08:15 - Subjective Subjective: (covering for Dr. Villegas) Patient is seen this morning. She is awake and trying to get out of bed. Objective - Vital Signs/Intake and Output Vital Signs (last 24 hours): Temp Pulse Resp BP Pulse Ox 99 F 101 H 20 131/94 H 90 L 12/28/17 06:00 12/28/17 06:00 12/28/17 06:00 12/28/17 06:00 12/28/17 06:00 - Medications Medications: Current Medications Acetaminophen (Tylenol 325mg Tab) 650 mg PO Q4 PRN PRN Reason: Pain, Mild (1-3) Acetaminophen (Tylenol 650 Mg Supp) 650 mg RC Q6H PRN PRN Reason: Temp>= 99.5 Last Admin: 12/26/17 23:28 Dose: 650 mg Acetylcysteine (Acetylcysteine 20%) 4 ml IH [id number] [facility] Last Admin: 12/28/17 07:47 Dose: 4 ml Aspirin (Ecotrin) 81 mg PO DAILY [facility] Last Admin: 12/27/17 09:51 Dose: Not Given Cyanocobalamin (Vitamin B12 1000 Mcg/Ml Inj) 1,000 mcg IM DAILY [facility] Stop: 12/30/17 10:01 Last Admin: 12/27/17 09:52 Dose: 1,000 mcg Darbepoetin Eduin (Aranesp) 60 mcg SC QWK [facility] Last Admin: 12/26/17 17:22 Dose: 60 mcg Enoxaparin Sodium (Lovenox) 60 mg SC Q12H [facility] PRN Reason: Protocol Last Admin: 12/27/17 22:43 Dose: 60 mg Folic Acid (Folic Acid) 1 mg PO DAILY [facility] Last Admin: 12/27/17 09:51 Dose: Not Given Sodium Chloride (Sodium Chloride 0.9%) 1,000 mls @ 80 mls/hr IV .[id number] [facility] Last Admin: 12/27/17 22:45 Dose: Not Given Aztreonam (Azactam 1 Gm) 100 mls @ 100 mls/hr IVPB Q8 [facility] PRN Reason: Protocol Stop: 01/02/18 09:01 Last Admin: 12/28/17 06:31 Dose: 100 mls/hr Linezolid (Zyvox 600mg/300ml D5w) 600 mg in 300 mls @ 200 mls/hr IVPB Q12 [facility] PRN Reason: Protocol Stop: 01/02/18 10:01 Last Admin: 12/27/17 22:41 Dose: 200 mls/hr diltiaZEM IVPB 100mg in NS (Cardizem 100mg In Ns) 100 mls @ 5 mls/hr IV .Q20H [facility] PRN Reason: 5 MG/HR Last Admin: 12/28/17 06:32 Dose: 5 mls/hr Levalbuterol HCl (Xopenex) 0.63 mg IH [id number] [facility] Last Admin: 12/28/17 07:46 Dose: 0.63 mg Levothyroxine Sodium (Synthroid) 200 mcg PO DAILY [facility] Last Admin: 12/27/17 11:45 Dose: Not Given Lorazepam (Ativan) 0.5 mg IVP Q8 PRN; Protocol PRN Reason: Anxiety Last Admin: 12/27/17 11:38 Dose: 0.5 mg Oseltamivir Phosphate (Tamiflu) 30 mg PO BID [facility] PRN Reason: Protocol Last Admin: 12/27/17 17:03 Dose: Not Given Pantoprazole Sodium (Protonix Inj) 40 mg IVP DAILY [facility] Last Admin: 12/27/17 09:52 Dose: 40 mg Potassium Chloride (Potassium Chloride Oral Soln) 20 meq PO Q8H [facility] Last Admin: 12/27/17 22:41 Dose: Not Given Sennosides (Senokot Tab) 17.2 mg PO HS [facility] Last Admin: 12/27/17 22:41 Dose: Not Given - Labs Labs: 12/27/17 05:20 12/27/17 05:20 PT 18.3 SECONDS (9.4-12.5) H 12/25/17 19:50 INR 1.59 (0.93-1.08) H 12/25/17 19:50 APTT 33.5 Seconds (25.1-36.5) 12/25/17 19:50 - Constitutional Appears: No Acute Distress - Head Exam Head Exam: ATRAUMATIC, NORMOCEPHALIC - Respiratory Exam Respiratory Exam: Decreased Breath Sounds, NORMAL BREATHING PATTERN - Cardiovascular Exam Cardiovascular Exam: +S1, +S2 - GI/Abdominal Exam GI & Abdominal Exam: Soft, Normal Bowel Sounds - Extremities Exam Extremities Exam: Normal Inspection - Neurological Exam Neurological Exam: Alert, Awake Assessment and Plan - Assessment and Plan (Free Text) Assessment: Sepsis vs SIRS r/o pneumonia atrial fibrillation hypertension hypothyroidism history of recent left femur fracture Plan: Patient is on IV antibiotics as per infectious disease. Patient has failed two swallowing evaluations and is on IV medications. She is on Lovenox for atrial fibrillation. She has been made DNR as per her living will. Dr Villegas will see the patient tomorrow.
[2017-12-28] MEDS: Levothyroxine 200 MCG TAB PO SCH (10:00)
[2017-12-28 10:56] LABS: BASO # 0.14 K/mm3 (0.0-2.0); BASO % 0.9 % (0.0-3.0); EOS # 0.6 (0.0-0.7); EOS % 3.7 % (1.5-5.0); GRAN # 11.74 (1.4-6.5); GRAN % 75.8 % (50.0-68.0); HEMOGLOBIN 9.2 g/dL (12.0-16.0); LYMPH # 1.8 (1.2-3.4); LYMPH % 11.3 % (22.0-35.0); MEAN CELL VOLUME 93.7 fl (80.0-105.0); MEAN CORPUSCULAR HEMOGLOBIN 28.9 pg (25.0-35.0); MEAN CORPUSCULAR HGB CONC 30.9 g/dl (31.0-37.0); MEAN PLATELET VOLUME 9.2 fl (7.0-11.0); MONO # 1.3 (0.1-0.6); MONO % 8.3 % (1.0-6.0); RBC 3.18 10^6/uL (3.5-6.1); WHITE BLOOD COUNT 15.5 10^3/ul (4.5-11.0)
[2017-12-28 11:18] LABS: ALB/GLOB RATIO 0.8 (1.1-1.8); ALBUMIN 2.4 g/dL (3.0-4.8); BILIRUBIN,DIRECT 0.5 mg/dL (0.0-0.4); CALCIUM 7.2 mg/dL (8.4-10.5)
--- NOTE | 2017-12-28 11:49 | CARD ---
APPROVED REPORT EKG Measurement Heart [id number] <Conclusion> NSR with frequent APCs Abnormal ECG
[2017-12-28] MEDS: Linezolid 600 mg in D5W 300 ml 600 MG/300 ML BAG IVPB SCH ×2 (11:54→22:22)
[2017-12-28] MEDS: Enoxaparin 60 mg Syringe SC SCH ×2 (12:07→22:23)
--- NOTE | 2017-12-28 12:39 | CON ---
DATE: 12/28/2017 PULMONARY CONSULTATION We were asked by Dr. Martinez to evaluate and treat this 87-year-old female who was admitted to [facility] from a rehabilitation in the long term facility after she developed fever and skin rash. HISTORY OF PRESENT ILLNESS: The patient was recently in [facility] with hip fracture. She had surgery that was successful and she was transferred to rehabilitation facility long term where she was doing well until she noted to have fever, respiratory difficulties, decreasing oxygen saturation and developed maculopapular rash over her entire body. She was complaining of itching and she was scratching the rash. She was also found to have increased white count. She denied nausea, vomiting, diarrhea or cough. The patient is a poor historian. PAST MEDICAL HISTORY: Positive for hypertension, hypothyroidism, atrial fibrillation, arthritis, mastoiditis and chronic obstructive pulmonary disease. FAMILY HISTORY: Negative for inherited diseases. SOCIAL HISTORY: She is a nonsmoker, nondrinker. Never used illicit drugs. She resides in a long term and she is with dementia. ALLERGIES: SHE IS ALLERGIC TO PENICILLINS AND SULFA. MEDICATIONS: See MAR summary. REVIEW OF SYSTEMS: Conducted by reviewing all sources. Cardiovascular: History of atrial fibrillation. Pulmonary: History of chronic obstructive pulmonary disease. Rheumatologic, musculoskeletal: History of arthritis. Endocrine: History of hypothyroidism. Gastrointestinal: Negative. Genitourinary: Negative. Neuropsychiatric: History of dementia. The rest of the systems were reviewed and found to be negative. Her medications remarkably include Eliquis for chronic atrial fibrillation. All other systems negative. PHYSICAL EXAMINATION: VITAL SIGNS: On admission, her temperature was 101.2, today's temperature is 99.7, pulse is 90, respirations 20, blood pressure is 128/89, pulse oximetry today on room air is 92% and on nasal cannula 97%. HEAD, EARS, NOSE AND THROAT: Within normal limits. NECK: Supple. There is no jugular vein distention. CHEST: Symmetrical. HEART: S1, S2. No S3. Irregular. PULMONARY: Slightly diminished breath sounds bilaterally. Few upper airway rhonchi. No wheezing. GASTROINTESTINAL: Soft, nontender. No organomegaly. GENITOURINARY: No CVA tenderness. EXTREMITIES: No pedal edema. SKIN: Dry, intact. No rashes LABORATORY DATA: On admission, her WBCs were 14.2, hemoglobin 9.4, hematocrit 30. Her BUN is slightly elevated at 29, creatinine is slightly elevated at 1.3. Rapid influenza testing was negative for influenza. I reviewed her chest x-ray, which shows chronic changes. No acute infiltrates. No effusions. ASSESSMENT: 1. Sepsis syndrome. 2. Diffuse maculopapular rash, rule out rash due to sepsis verus infectious disease that is being worked up by Dr. John Clark. 3. Chronic obstructive pulmonary disease, appears mild. 4. Status post recent hip fracture and surgery. 5. Atrial fibrillation. 6. Hypertension. 7. Hypothyroidism. PLAN: The patient started on Xopenex inhalations due to her cardiac condition that would be the preferred bronchodilator. She is also on antibiotics in the form of Zyvox and Azactam. She was given Tamiflu prophylactically, although her influenza testing is negative. I would continue with administration of nebulized medication. There is no evidence of pneumonia. At this time, we will recheck tomorrow. Corky Jiménez MD MTDJuvenal
[2017-12-28] MEDS: Potassium Chloride 20 mEq/15 ml LIQ UD PO SCH (13:20)
--- NOTE | 2017-12-28 14:20 | PN ---
DATE: CONSULTING PHYSICIAN: Mamta Alcantara M.D. Covering for Dr. Carmine Bailey. REASON FOR CONSULTATION: AFib, altered mental status, hypoxemia. SUBJECTIVE: Patient denies any chest pain or shortness of breath. Patient is lying flat on the bed. The patient is n.p.o., started on IV Cardizem. PHYSICAL EXAMINATION: GENERAL: In not in any apparent distress. VITAL SIGNS: Temperature afebrile, heart rate 101, blood pressure 131/94. HEENT: PERRLA. Extraocular muscles intact. NECK: Supple. No carotid bruit or thyromegaly. CHEST: Clear to auscultation. HEART: S1, S2 regular. ABDOMEN: Soft. EXTREMITIES: Clubbing and cyanosis, negative. LABORATORY DATA: Blood workup as follows: WBC 13, hemoglobin 8.8, hematocrit 29.0, platelets count 256. Chemistry shows sodium 140, potassium 3.1, chloride 109, carbon dioxide 28, anion gap of 14, BUN 29, creatinine 1.4. IMPRESSION: Atrial fibrillation, paroxysmal now converted to normal sinus, n.p.o., hypokalemia, multiple electrolytes abnormalities, anemia, renal insufficiency, protein-calorie malnutrition which was present, but is now severe, on admission was moderate; atrial fibrillation with rapid ventricular rate converted to normal sinus, increased A-a gradient, dementia, anemia, chronic obstructive pulmonary disease. RECOMMENDATIONS: Aggressively supplement potassium, continue Lovenox, Cardizem, started IV because the patient is not taking p.o. We will continue and change to 10 mg daily. If prolonged n.p.o. is considered, consider PPN. Supplement electrolyte. We will follow with you. Thank you, Dr. Martinez, for providing us the opportunity in taking care of the patient, Susanne Chairez. We will transfer care tomorrow to Dr. Carmine Bailey. Mamta Alcantara MD
[2017-12-28] MEDS ORDERED: MethylPREDNISolone 40 mg Vial IVP ONE (16:00)
--- NOTE | 2017-12-28 16:03 | CP.PCM.PN ---
Subjective - Date & Time of Evaluation Date of Evaluation: 12/28/17 Time of Evaluation: 09:30 - Subjective Subjective: Still with rash on her torso and legs, no fevers overnight, still with cough. Objective - Vital Signs/Intake and Output Vital Signs (last 24 hours): Temp Pulse Resp BP Pulse Ox 98.3 F 80 20 155/86 H 95 12/27/17 06:00 12/27/17 06:00 12/27/17 06:00 12/27/17 06:00 12/27/17 06:00 Intake and Output: 12/27/17 12/27/17 06:59 18:59 Intake Total 1250 0 Balance 1250 0 - Medications Medications: Current Medications Acetaminophen (Tylenol 325mg Tab) 650 mg PO Q4 PRN PRN Reason: Pain, Mild (1-3) Acetaminophen (Tylenol 650 Mg Supp) 650 mg RC Q6H PRN PRN Reason: Temp>= 99.5 Last Admin: 12/26/17 23:28 Dose: 650 mg Acetylcysteine (Acetylcysteine 20%) 4 ml IH [id number] [facility] Last Admin: 12/27/17 07:40 Dose: 4 ml Aspirin (Ecotrin) 81 mg PO DAILY [facility] Last Admin: 12/27/17 09:51 Dose: Not Given Cyanocobalamin (Vitamin B12 1000 Mcg/Ml Inj) 1,000 mcg IM DAILY [facility] Stop: 12/30/17 10:01 Last Admin: 12/27/17 09:52 Dose: 1,000 mcg Darbepoetin Eduin (Aranesp) 60 mcg SC QWK [facility] Last Admin: 12/26/17 17:22 Dose: 60 mcg Enoxaparin Sodium (Lovenox) 60 mg SC Q12H [facility] PRN Reason: Protocol Folic Acid (Folic Acid) 1 mg PO DAILY [facility] Last Admin: 12/27/17 09:51 Dose: Not Given Sodium Chloride (Sodium Chloride 0.9%) 1,000 mls @ 80 mls/hr IV .[id number] [facility] Last Admin: 12/26/17 21:50 Dose: Not Given Aztreonam (Azactam 1 Gm) 100 mls @ 100 mls/hr IVPB Q8 [facility] PRN Reason: Protocol Stop: 01/02/18 09:01 Last Admin: 12/27/17 05:18 Dose: 100 mls/hr Linezolid (Zyvox 600mg/300ml D5w) 600 mg in 300 mls @ 200 mls/hr IVPB Q12 [facility] PRN Reason: Protocol Stop: 01/02/18 10:01 Last Admin: 12/26/17 22:50 Dose: 200 mls/hr Potassium Chloride (Potassium Chloride 20 Meq/100 Ml) 20 meq in 100 mls @ 50 mls/hr IVPB Q2H [facility] Stop: 12/27/17 12:59 Last Admin: 12/27/17 09:51 Dose: 50 mls/hr diltiaZEM IVPB 100mg in NS (Cardizem 100mg In Ns) 100 mls @ 5 mls/hr IV .Q20H [facility] PRN Reason: 5 MG/HR Magnesium Sulfate 2 gm/ Sodium (Chloride) 104 mls @ 102 mls/hr IVPB ONCE ONE Stop: 12/27/17 11:58 Levalbuterol HCl (Xopenex) 0.63 mg IH [id number] [facility] Last Admin: 12/27/17 07:40 Dose: 0.63 mg Levothyroxine Sodium (Synthroid) 200 mcg PO DAILY [facility] Last Admin: 12/26/17 10:00 Dose: Not Given Lorazepam (Ativan) 0.5 mg IVP Q8 PRN; Protocol PRN Reason: Anxiety Oseltamivir Phosphate (Tamiflu) 30 mg PO BID [facility] PRN Reason: Protocol Last Admin: 12/26/17 17:17 Dose: Not Given Pantoprazole Sodium (Protonix Inj) 40 mg IVP DAILY [facility] Last Admin: 12/27/17 09:52 Dose: 40 mg Potassium Chloride (Potassium Chloride Oral Soln) 20 meq PO Q8H [facility] Last Admin: 12/27/17 07:51 Dose: Not Given Sennosides (Senokot Tab) 17.2 mg PO HS [facility] Last Admin: 12/26/17 23:05 Dose: Not Given - Labs Labs: 12/27/17 05:20 12/27/17 05:20 PT 18.3 SECONDS (9.4-12.5) H 12/25/17 19:50 INR 1.59 (0.93-1.08) H 12/25/17 19:50 APTT 33.5 Seconds (25.1-36.5) 12/25/17 19:50 - Constitutional Appears: Chronically Ill - Head Exam Head Exam: NORMAL INSPECTION - ENT Exam ENT Exam: Mucous Membranes Moist - Neck Exam Neck Exam: absent: Meningismus - Respiratory Exam Respiratory Exam: Decreased Breath Sounds - Cardiovascular Exam Cardiovascular Exam: +S1, +S2 - GI/Abdominal Exam GI & Abdominal Exam: Soft. absent: Tenderness - Skin Skin Exam: Rash (erythematous, blanching, on the torso (posterior and anterior) and upper legs) Assessment and Plan - Assessment and Plan (Free Text) Plan: Assessment systemic inflammatory response syndrome, R/O sepsis from respiratory tract infection maculopapular rash, consider drug rash, R/O viral exanthem history of right sided otomastoiditis left hip fracture S/P surgery paroxysmal atrial fibrillation HTN hypothyroidism arthritis Plan continue Zyvox and Azactam day 3 and add Doxycycline; blood cx are negative, PCT is 0.35 patient being given benadryl - rash distribution is all over the body, with same stage of the lesions all over the body, making drug rash more likely, but viral exanthem still in the differential, including measles, although much lower in the differential diagnosis considerations since patient does not have coryza or conjunctivitis, and patient does not have travel history or international guests - follow up Measles IgM, IgG and contact Infection Control ; will also give a dose of IV steroids will continue to monitor clinically
[2017-12-28] MEDS: Sodium Chloride 0.9% 1,000 ML IV SCH (23:45)
[2017-12-29] MEDS: Sodium Chloride 0.9% 1,000 ML IV SCH (01:32)
[2017-12-29] MEDS: diltiaZEM IVPB 100mg in NS 100 ML IV SCH ×3 (01:44→23:18)
[2017-12-29] MEDS: Acetylcysteine 20% Inhal Soln (4ml) IH SCH ×3 (02:20→13:17)
[2017-12-29] MEDS: Levalbuterol 0.63 MG/3 ML Inhal Soln UD IH SCH ×3 (02:20→13:18)
[2017-12-29] MEDS: Aztreonam 1 Gm in NS 100mL 100 ML IVPB SCH ×2 (05:29→16:31)
[2017-12-29 06:18] LABS: BASO # 0.1 K/mm3 (0.0-2.0); BASO % 0.9 % (0.0-3.0); EOS % 0.1 % (1.5-5.0); GRAN # 8.47 (1.4-6.5); GRAN % 80.5 % (50.0-68.0); HEMOGLOBIN 9.7 g/dL (12.0-16.0); LYMPH # 1.9 (1.2-3.4); LYMPH % 17.6 % (22.0-35.0); MEAN CELL VOLUME 92.7 fl (80.0-105.0); MEAN CORPUSCULAR HEMOGLOBIN 28.3 pg (25.0-35.0); MEAN CORPUSCULAR HGB CONC 30.5 g/dl (31.0-37.0); MEAN PLATELET VOLUME 9.7 fl (7.0-11.0); MONO # 0.1 (0.1-0.6); MONO % 0.9 % (1.0-6.0); RBC 3.43 10^6/uL (3.5-6.1); WHITE BLOOD COUNT 10.5 10^3/ul (4.5-11.0)
[2017-12-29 06:58] LABS: ALB/GLOB RATIO 0.8 (1.1-1.8); ALBUMIN 2.5 g/dL (3.0-4.8); BILIRUBIN,DIRECT 0.6 mg/dL (0.0-0.4); CALCIUM 7.6 mg/dL (8.4-10.5)
[2017-12-29] MEDS: Budesonide 0.5 mg/2 ml Inhal Susp UD IH SCH (07:56)
--- NOTE | 2017-12-29 08:36 | PN ---
DATE: 12/29/2017 PULMONARY NOTE SUBJECTIVE: The patient appears comfortable this morning. She is not short of breath at rest. PHYSICAL EXAMINATION VITAL SIGNS: Temperature is 98.0, pulse is 79, respirations 18/20, blood pressure 135/67. Oxygen saturation on room air is 93%-96%. HEENT: Normocephalic, atraumatic. No JVD. CARDIOVASCULAR: Systolic ejection murmur at the lower left sternal border. No S3 gallop. LUNGS: Decreased breath sounds at the bases. Mild rhonchi. No wheezing. EXTREMITIES: No clubbing, cyanosis or edema. Calves are nontender to palpation. GI: Abdomen is soft, nontender and nondistended. Bowel sounds are positive. SKIN: Mild rash on torso and extremities. NEUROLOGIC: Limited at the present time. IMPRESSION: 1. Sepsis syndrome. 2. Chronic obstructive pulmonary disease. 3. Mild bronchospasm. 4. Atrial fibrillation. 5. Anemia. 6. Renal insufficiency. PLAN: The patient appears comfortable this morning. She is not short of breath at rest. Oxygen saturation on room air is 93%-96%. On physical exam, there is mild bronchospasm noted. I will continue the current nebulizer treatments and add inhaled steroids this morning. The patient remains on a Cardizem drip. Input by Cardiology is noted. Clinical status of the patient is definitely improved - compared to the initial presentation. I would like to see the patient out of bed as much as possible. A Transitional Unit evaluation has also been ordered. I will discuss the above with Dr. Villegas. Jj De Souza MD MTDJuvenal
--- NOTE | 2017-12-29 10:40 | CP.PCM.PN ---
Subjective - Date & Time of Evaluation Date of Evaluation: 12/29/17 Time of Evaluation: 10:36 - Subjective Subjective: Patient seen and examined at bedside. Patient is alert, but not oriented at this time. She is unable to answer questions appropriately. She does not respond to commands. ROS not unobtainable secondary to altered mental status. Objective - Vital Signs/Intake and Output Vital Signs (last 24 hours): Temp Pulse Resp BP Pulse Ox 98.0 F 79 20 135/67 93 L 12/29/17 06:00 12/29/17 06:00 12/29/17 06:00 12/29/17 06:00 12/29/17 06:00 Intake and Output: 12/29/17 12/29/17 06:59 18:59 Intake Total 1580 0 Balance 1580 0 - Medications Medications: Current Medications Acetaminophen (Tylenol 325mg Tab) 650 mg PO Q4 PRN PRN Reason: Pain, Mild (1-3) Acetaminophen (Tylenol 650 Mg Supp) 650 mg RC Q6H PRN PRN Reason: Temp>= 99.5 Last Admin: 12/28/17 15:01 Dose: 650 mg Acetylcysteine (Acetylcysteine 20%) 4 ml IH [id number] [facility] Last Admin: 12/29/17 07:55 Dose: 4 ml Aspirin (Ecotrin) 81 mg PO DAILY [facility] Last Admin: 12/28/17 10:00 Dose: Not Given Budesonide (Pulmicort Respules) 0.5 mg IH [id number] [facility] Last Admin: 12/29/17 07:56 Dose: 0.5 mg Cyanocobalamin (Vitamin B12 1000 Mcg/Ml Inj) 1,000 mcg IM DAILY [facility] Stop: 12/30/17 10:01 Last Admin: 12/28/17 10:30 Dose: 1,000 mcg Darbepoetin Eduin (Aranesp) 60 mcg SC QWK [facility] Last Admin: 12/26/17 17:22 Dose: 60 mcg Enoxaparin Sodium (Lovenox) 60 mg SC Q12H [facility] PRN Reason: Protocol Last Admin: 12/28/17 22:23 Dose: 60 mg Folic Acid (Folic Acid) 1 mg PO DAILY [facility] Last Admin: 12/28/17 10:00 Dose: Not Given Aztreonam (Azactam 1 Gm) 100 mls @ 100 mls/hr IVPB Q8 [facility] PRN Reason: Protocol Stop: 01/02/18 09:01 Last Admin: 12/29/17 05:29 Dose: 100 mls/hr Linezolid (Zyvox 600mg/300ml D5w) 600 mg in 300 mls @ 200 mls/hr IVPB Q12 [facility] PRN Reason: Protocol Stop: 01/02/18 10:01 Last Admin: 12/28/17 22:22 Dose: 200 mls/hr diltiaZEM IVPB 100mg in NS (Cardizem 100mg In Ns) 100 mls @ 10 mls/hr IV .Q10H [facility] PRN Reason: 10 MG/HR Last Admin: 12/29/17 09:10 Dose: 10 mls/hr Dextrose (Dextrose 5% In Water 1000 Ml) 1,000 mls @ 50 mls/hr IV .Q20H [facility] Last Admin: 12/29/17 08:52 Dose: 50 mls/hr Potassium Chloride (Potassium Chloride 20 Meq/100 Ml) 20 meq in 100 mls @ 50 mls/hr IVPB Q2H [facility] Stop: 12/29/17 11:29 Last Admin: 12/29/17 08:49 Dose: 50 mls/hr Levalbuterol HCl (Xopenex) 0.63 mg IH [id number] [facility] Last Admin: 12/29/17 07:56 Dose: 0.63 mg Levothyroxine Sodium (Synthroid) 50 mcg IVP DAILY [facility] Lorazepam (Ativan) 0.5 mg IVP Q8 PRN; Protocol PRN Reason: Anxiety Last Admin: 12/27/17 11:38 Dose: 0.5 mg Pantoprazole Sodium (Protonix Inj) 40 mg IVP DAILY [facility] Last Admin: 12/28/17 11:54 Dose: 40 mg Sennosides (Senokot Tab) 17.2 mg PO HS [facility] Last Admin: 12/28/17 21:06 Dose: Not Given - Labs Labs: 12/29/17 06:00 12/29/17 06:00 PT 18.3 SECONDS (9.4-12.5) H 12/25/17 19:50 INR 1.59 (0.93-1.08) H 12/25/17 19:50 APTT 33.5 Seconds (25.1-36.5) 12/25/17 19:50 - Constitutional Appears: Non-toxic, No Acute Distress, Confused - Head Exam Head Exam: ATRAUMATIC, NORMAL INSPECTION, NORMOCEPHALIC - ENT Exam ENT Exam: Mucous Membranes Dry - Respiratory Exam Respiratory Exam: Decreased Breath Sounds, NORMAL BREATHING PATTERN. absent: Rales, Rhonchi, Wheezes - Cardiovascular Exam Cardiovascular Exam: Irregular Rhythm, +S1, +S2 - GI/Abdominal Exam GI & Abdominal Exam: Soft, Normal Bowel Sounds. absent: Tenderness - Extremities Exam Extremities Exam: absent: Calf Tenderness, Pedal Edema - Neurological Exam Neurological Exam: Alert, Awake, Oriented x3 - Psychiatric Exam Psychiatric exam: Normal Affect, Normal Mood - Skin Skin Exam: Intact, Normal Color, Warm Assessment and Plan - Assessment and Plan (Free Text) Plan: 87 year old female with past medical history of atrial fibrillation, hypertension, dementia, femur fracture, and hypothyroidism initially presented with altered mental status and A-fib with RVR. A-fib now rate controlled, but patient with persistent AMS, possibly secondary to worsening dementia. Will consider MRI/MRA of brain, however it is not recommended within the first 6 weeks of Left hip ORIF. Patient made DNR/DNI. Patient is currently on Zyvox and Azactam as per ID. Patient with improving rash throughout body, although she is on droplet precautions. She is also having dysphagia and will be evaluated by GI for possible PEG tube placement. Will continue current medical management. Clary, PGY-2
[2017-12-29] MEDS: Magnesium Sulfate 2 GM in Sodium Chloride 0.9% 100 ML IVPB SCH ×2 (11:48→13:46)
[2017-12-29] MEDS: Levothyroxine 100 mcg (0.1 mg) Inj IVP SCH (11:53)
--- NOTE | 2017-12-29 13:06 | CT ---
PROCEDURE: CT HEAD WITHOUT CONTRAST. HISTORY: AMS?DYSPHAGIA COMPARISON: 12/02/2017 TECHNIQUE: Axial computed tomography images were obtained through the head/brain without intravenous contrast. Radiation dose: Total exam DLP = 895 mGy-cm. This CT exam was performed using one or more of the following dose reduction techniques: Automated exposure control, adjustment of the mA and/or kV according to patient size, and/or use of iterative reconstruction technique. FINDINGS: HEMORRHAGE: No intracranial hemorrhage. BRAIN: No mass effect or edema. No atrophy or chronic microvascular ischemic changes. VENTRICLES: Unremarkable. No hydrocephalus. CALVARIUM: Unremarkable. PARANASAL SINUSES: Small amount of fluid can be seen in the maxillary sinuses MASTOID AIR CELLS: Unremarkable as visualized. No inflammatory changes. OTHER FINDINGS: None. IMPRESSION: No acute findings Minimal fluid in the maxillary sinuses and mucosal thickening in the ethmoid sinuses
--- NOTE | 2017-12-29 14:41 | CP.PCM.PN ---
Subjective - Date & Time of Evaluation Date of Evaluation: 12/29/17 Time of Evaluation: 09:40 - Subjective Subjective: No fevers, not in distress, still with rash on torso and legs. Objective - Vital Signs/Intake and Output Vital Signs (last 24 hours): Temp Pulse Resp BP Pulse Ox 99 F 78 18 159/80 H 90 L 12/28/17 12:00 12/28/17 12:00 12/28/17 12:00 12/28/17 12:00 12/28/17 06:00 - Medications Medications: Current Medications Acetaminophen (Tylenol 325mg Tab) 650 mg PO Q4 PRN PRN Reason: Pain, Mild (1-3) Acetaminophen (Tylenol 650 Mg Supp) 650 mg RC Q6H PRN PRN Reason: Temp>= 99.5 Last Admin: 12/28/17 15:01 Dose: 650 mg Acetylcysteine (Acetylcysteine 20%) 4 ml IH [id number] [facility] Last Admin: 12/28/17 13:54 Dose: 4 ml Aspirin (Ecotrin) 81 mg PO DAILY [facility] Last Admin: 12/28/17 10:00 Dose: Not Given Cyanocobalamin (Vitamin B12 1000 Mcg/Ml Inj) 1,000 mcg IM DAILY [facility] Stop: 12/30/17 10:01 Last Admin: 12/28/17 10:30 Dose: 1,000 mcg Darbepoetin Eduin (Aranesp) 60 mcg SC QWK [facility] Last Admin: 12/26/17 17:22 Dose: 60 mcg Enoxaparin Sodium (Lovenox) 60 mg SC Q12H [facility] PRN Reason: Protocol Last Admin: 12/28/17 12:07 Dose: 60 mg Folic Acid (Folic Acid) 1 mg PO DAILY [facility] Last Admin: 12/28/17 10:00 Dose: Not Given Sodium Chloride (Sodium Chloride 0.9%) 1,000 mls @ 80 mls/hr IV .[id number] [facility] Last Admin: 12/27/17 22:45 Dose: Not Given Aztreonam (Azactam 1 Gm) 100 mls @ 100 mls/hr IVPB Q8 [facility] PRN Reason: Protocol Stop: 01/02/18 09:01 Last Admin: 12/28/17 14:33 Dose: 100 mls/hr Linezolid (Zyvox 600mg/300ml D5w) 600 mg in 300 mls @ 200 mls/hr IVPB Q12 [facility] PRN Reason: Protocol Stop: 01/02/18 10:01 Last Admin: 12/28/17 11:54 Dose: 200 mls/hr diltiaZEM IVPB 100mg in NS (Cardizem 100mg In Ns) 100 mls @ 10 mls/hr IV .Q10H [facility] PRN Reason: 10 MG/HR Last Admin: 12/28/17 11:00 Dose: 10 mls/hr Levalbuterol HCl (Xopenex) 0.63 mg IH [id number] [facility] Last Admin: 12/28/17 13:54 Dose: 0.63 mg Levothyroxine Sodium (Synthroid) 200 mcg PO DAILY [facility] Last Admin: 12/28/17 10:00 Dose: Not Given Lorazepam (Ativan) 0.5 mg IVP Q8 PRN; Protocol PRN Reason: Anxiety Last Admin: 12/27/17 11:38 Dose: 0.5 mg Oseltamivir Phosphate (Tamiflu) 30 mg PO BID [facility] PRN Reason: Protocol Last Admin: 12/28/17 10:00 Dose: Not Given Pantoprazole Sodium (Protonix Inj) 40 mg IVP DAILY [facility] Last Admin: 12/28/17 11:54 Dose: 40 mg Potassium Chloride (Potassium Chloride Oral Soln) 20 meq PO Q8H [facility] Last Admin: 12/28/17 13:20 Dose: Not Given Sennosides (Senokot Tab) 17.2 mg PO HS [facility] Last Admin: 12/27/17 22:41 Dose: Not Given - Labs Labs: 12/28/17 10:50 12/28/17 10:50 PT 18.3 SECONDS (9.4-12.5) H 12/25/17 19:50 INR 1.59 (0.93-1.08) H 12/25/17 19:50 APTT 33.5 Seconds (25.1-36.5) 12/25/17 19:50 - Constitutional Appears: Chronically Ill - Head Exam Head Exam: NORMAL INSPECTION - Neck Exam Neck Exam: absent: Meningismus - Respiratory Exam Respiratory Exam: Decreased Breath Sounds - Cardiovascular Exam Cardiovascular Exam: +S1, +S2 - GI/Abdominal Exam GI & Abdominal Exam: Soft. absent: Tenderness - Skin Skin Exam: Rash (maculopapular, confluent) Assessment and Plan - Assessment and Plan (Free Text) Plan: Assessment systemic inflammatory response syndrome, R/O sepsis from respiratory tract infection maculopapular rash, consider drug rash, R/O viral exanthem history of right sided otomastoiditis left hip fracture S/P surgery paroxysmal atrial fibrillation HTN hypothyroidism arthritis Plan on Zyvox and Azactam day 4 and Doxycycline; blood cx are negative, PCT is 0.35 - will d/c Zyvox and Azactam and continue Doxycycline up to 7 days of therapy patient being given benadryl - rash distribution is all over the body, with same stage of the lesions all over the body, making drug rash more likely, but viral exanthem still in the differential, including measles, although much lower in the differential diagnosis considerations since patient does not have coryza or conjunctivitis, and patient does not have travel history or international guests - follow up Measles IgM, IgG and Infection Control is contacting the local health department to check what else needs to be sent; has been given a dose of IV steroids will continue to monitor clinically
--- NOTE | 2017-12-29 14:53 | PN ---
DATE: 12/29/2017 CARDIOLOGY FOLLOWUP SUBJECTIVE: The patient is in bed without distress. PHYSICAL EXAMINATION VITAL SIGNS: Blood pressure is 135/67, the heart rates in the 70s. NECK: Negative JVD. LUNGS: Without rales. HEART: Reveals S1 and S2. EXTREMITIES: Without edema. LABORATORY DATA: Hemoglobin is 9.7. Chemistries: The potassium is 3.0. IMPRESSION: 1. Paroxysmal atrial fibrillation. 2. Sepsis. 3. Dementia. 4. Chronic obstructive pulmonary disease. 5. Aortic valve sclerosis. 6. Pulmonary hypertension. PLAN: Given these findings, once the patient is taking p.o., we will change her Cardizem to p.o. as well as anticoagulate with oral medications. Carmine Bailey MD
[2017-12-29] MEDS: Linezolid 600 mg in D5W 300 ml 600 MG/300 ML BAG IVPB SCH (16:31)
[2017-12-29] MEDS: Enoxaparin 60 mg Syringe SC SCH (16:37)
--- NOTE | 2017-12-29 17:00 | PN ---
DATE: 12/29/2017 SUBJECTIVE: The patient is seen lying in the bed in room 263, bed 2. The patient is alert, awake, responsive. The patient is not talking because of the patient's evaluation by the speech therapist shows overall severe oropharyngeal dysphagia with high risk for aspiration. Overnight nurse's notes were reviewed. The patient was found to be confused, alert, awake, oriented x1. The patient was noted to have some rash over the body for which the patient was seen by the Infectious Disease and Surgery. The patient has been kept n.p.o. because of the severe oropharyngeal dysphagia. PHYSICAL EXAMINATION: VITAL SIGNS: T-max 99 down to 98. Telemetry shows patient has converted to sinus rhythm from atrial fibrillation. Blood pressure 135/67, respiration 20, O2 sat is 93%, 96% and 92%. Intake/output is not documented correctly. GENERAL: Patient is seen lying in the bed. HEENT: Head: Normocephalic, atraumatic. Examination shows pinkish pale conjunctivae. Anicteric sclerae. No oropharyngeal lesion. Soft carotid bruit. CHEST: Kyphosis. LUNGS: Shows questionable decreased breath sound at the bases. CARDIOVASCULAR: S1, S2, regular rhythm. Positive systolic murmur, left sternal border, right second intercostal space, left second intercostal space. ABDOMEN: Soft. Positive bowel sound. GENITALIA: Female. RECTAL: Deferred. EXTREMITIES: Shows no pitting edema, no calf numbness, no Homans' sign. Positive SCDs. NEUROLOGIC: The patient is alert, awake, responsive, confused, disoriented, is able to move upper and lower extremity without assistance. Gait: Could not be tested. Vascular: Palpable pulses. DIAGNOSTICS: On 12/29: WBC 10.5, hemoglobin and hematocrit 9.7 and 32, platelets 173 and granulocytes 80% segs. Sodium 151, potassium 3.0, chloride 111, CO2 of 25, anion gap 18, BUN 28, creatinine 1.3, GFR is 47, glucose 143, calcium 7.6, magnesium 1.6. Total protein 5.6, albumin 2.5. Vitamin D is low at 19. Urinalysis noted, rubeola titers are positive IgG, shows immunity and rubella titers are pending. Blood cultures from 12/26, negative. Sacral decubitus ulceration culture shows Andressa albicans. Urine culture contamination with 10 to 50,000. EKG is reviewed. IMPRESSION: 1. Questionable altered mental status with weakness with altered mental status and hypoxemia. 2. Paroxysmal atrial fibrillation with rapid ventricular response, converted to normal sinus rhythm. 3. Acute exacerbation of dementia. 4. Severe oropharyngeal dysphagia. 5. Questionable drug reaction versus questionable dermatitis. 6. Stage II to III sacral decubitus ulceration. 7. Stage III decubitus ulceration. 8. Transient hypoxemia. 9. Leukocytosis with granulocytosis. 10. Normocytic anemia. 11. Hypernatremia. 12. Protein malnutrition and hypoalbuminemia. 13. Hypovitaminosis D. 14. Congestive heart failure with elevated BNP. 15. Elevated C-reactive protein. 16. Hypomagnesemia. 17. Hypocalcemia. 18. Hypokalemia. 19. Proteinuria, ketonuria, microscopic hematuria, pyuria, funguria. 20. Pulmonary hyperinflation with peribronchial thickening with chronic changes in both lungs. 21. Questionable chronic obstructive pulmonary disease. 22. History of open reduction and internal fixation of the left transcervical hip fracture with callus formation in the medial proximal fracture segment. 23. Gait dysfunction. 24. Deconditioning. 25. Andressa albicans sacral decubitus ulceration. 26. Hypertensive cardiovascular disease. 27. Possible right ventricular hypertrophy. 28. Questionable drug rash versus viral exanthem. 29. History of right-sided otomastoiditis, treated. 30. Moderate protein-calorie malnutrition. 31. History of hypertension. 32. Systemic inflammatory response syndrome. 33. Status post fever of 101.2. 34. Contaminated questionable urinary tract infection. 35. Left ventricular ejection fraction of 55%. 36. Concentric left ventricular hypertrophy. 37. Moderately thickened aortic valve with moderate aortic regurgitation. 38. Tricuspid regurgitation with moderate pulmonary hypertension with right ventricular systolic pressure of 59 mmHg. 39. Iron deficiency anemia. 40. Hypothyroidism. 41. Vitamin B12 deficiency. 42. Feeding dysfunction. 43. Questionable dysarthria versus aphasia. PLAN: At this time, patient was made DNR/DNI by Dr. Omar maier for me as per the patient's family request and advance directive and living will as per the patient's daughter. CURRENT CONSULTATIONS: 1. Cardiology. 2. Infectious Disease. 3. Orthopedics. 4. Gastroenterology for evaluation of gastrostomy. 5. Pulmonary. Patient's case referred to TCU. CURRENT MEDICATIONS: Mucomyst nebulizer 20% 4 ml q. 6h. Patient was given Aranesp 60 mcg subcu weekly, Ativan 0.5 mg IV q. 8 p.r.n., Azactam 1 g IV q. 8 and Cardizem drip. The patient is started on D5W at 50 mL an hour. Patient has been changed to aspirin suppository 300 mg daily as patient is n.p.o. Patient is on GI and DVT prophylaxis. Patient is being started on D5W for hypernatremia. Folic acid will be given IV. The patient is on Lovenox 60 mg subcu daily, Protonix 40 mg IV daily, Pulmicort nebulizer 0.5 mg q. 12, Senokot will be changed to Dulcolax suppository. Patient was given Solu-Medrol 40 mg x1 dose yesterday. Patient is on Synthroid 50 mcg IV daily, Tylenol 650 suppository p.r.n., vitamin B12 1000 mcg IM daily, Xopenex nebulizer every 6 hours, patient is on Zyvox 600 IV q. 12. The patient has been ordered carotid Doppler, CT of the head. The patient is unable to go for MRI of the brain because of the recent hip surgery and they have to wait 6 weeks postop for doing an MRI. The patient is on nasal cannula 2 L continuous humidified. The patient has been ordered SCDs and HUMBERTO stockings. The patient's condition, diagnoses, overall [id number] prognosis was discussed and explained to the patient's daughter and the son who are present outside the room in great detail. All of the above was explained to the patient, daughter and the son in layman's language. I have also explained to the patient's daughter and the son about overall patient's [id number] prognosis. I have went over all the diagnoses and their concerns. Patient has been ordered physical therapy, occupational therapy, ambulation therapy, out of bed. Patient's all the p.o. meds are now IV. Overall, patient's prognosis is [id number]. Patient's family has been explained about above, which the son and the daughter acknowledged understand. I have also explained to the patient's daughter and son that patient's likelihood of having compromised condition is much more higher because of the patient's multiple comorbidity, deconditioned state and overall decline in her clinical status and she has more likelihood of developing complications, which they acknowledged and understand. Dictated and electronically signed, not read. Matt Villegas MD
--- NOTE | 2017-12-29 19:37 | CON ---
DATE: 12/29/2017 GASTROENTEROLOGY CONSULTATION REQUESTING PHYSICIAN: Dr. Villegas. REASON FOR CONSULTATION: I have been asked to see this 87-year-old female who was sent to the hospital from the custodial for decreased oxygen saturation on routine pulse oximetry. Patient has a history of atrial fibrillation, hypothyroidism, hypertension and dementia. Patient apparently has had difficulty swallowing with high risk for aspiration. She did have a swallowing evaluation, which showed oropharyngeal dysphagia. Patient is also being treated for possible sepsis syndrome with presence of a diffuse maculopapular rash. Patient is confused and unable to give any detailed history. There is no evidence of cough or shortness of breath. Patient recently had a hip fracture of from a fall and had a open reduction and internal fixation of her fractured hip. PAST MEDICAL HISTORY: As above. Again, she has a history of atrial fibrillation, hypertension, hypothyroidism, COPD. PAST SURGICAL HISTORY: Notable for repair of a hip fracture. SOCIAL HISTORY: She denies cigarette smoking or alcohol use. She is domiciled at a custodial. REVIEW OF SYSTEMS: 14-point review of systems is unobtainable due to her dementia. PHYSICAL EXAMINATION: GENERAL: Elderly female lying in bed, in no acute distress. VITAL SIGNS: Reveal temperature of 97.6, blood pressure 130/60, heart rate of 84. HEENT: Reveal sclerae to be white. Conjunctivae pink. NECK: Supple. CHEST: Reveal scattered rhonchi. HEART: Reveals an irregularly irregular rate. ABDOMEN: Soft, nontender. EXTREMITIES: Show no edema. She does have a maculopapular rash on her chest and extremities. LABORATORY DATA: Reveal white blood cell count 10.5, hemoglobin 9.7. Chemistries reveal sodium of 151, chloride of 111, BUN 28, creatinine 1.3. AST, ALT, alk phos were all normal. MEDICATIONS AT HOME: Include Synthroid; senna; Protonix 40 mg once a day; Procrit 10,000 units Friday, Friday, Friday; potassium chloride tablets; milk of magnesia; aluminum hydroxide; magnesium; Lopressor 25 mg twice a day; Zestril 5 mg once a day; Ativan 0.25 mg every 8 hours as needed; hydralazine 10 mg p.o. q. 6 hours; folic acid 1 mg daily; Eliquis 2.5 mg twice a day; Bactroban ointment daily; docusate sodium 50 mg three times a day; baby aspirin 81 mg once a day. IMPRESSION: An 87-year-old female with dementia, atrial fibrillation, chronic obstructive pulmonary disease, possible sepsis syndrome, now with a maculopapular rash with oropharyngeal dysphagia at risk for aspiration. I reviewed the patient's documents. She does have an advance directive that requests no mechanical feedings or nutrition recommendations. We would retry swallowing study in several days to see if there is improvement in her swallowing function. I have a call into the patient's Power of Soap Chipper, Jacquelyn. We will hold off on PEG placement at this time. Izaiah Hernandez MD
--- NOTE | 2017-12-29 21:39 | US ---
PROCEDURE: Bilateral carotid artery duplex ultrasound HISTORY: Carotid stenosis PHYSICIAN(S): Carmine Banda MD. TECHNIQUE: Duplex sonography and color-flow Doppler were used to evaluate the carotid bifurcations and limited segments of the vertebral arteries bilaterally. FINDINGS: There is mild smooth heterogeneous plaque noted at the carotid bifurcations bilaterally. The peak systolic velocity in the proximal right internal carotid artery is 90 cm/sec. This corresponds to a 20 to 39% proximal right ICA stenosis. Normal systolic velocities are noted in the proximal right external carotid artery. There is antegrade flow in the right vertebral artery. The peak systolic velocity in the proximal left internal carotid artery is 80 cm/sec. This corresponds to a 20 to 39% proximal left ICA stenosis. Normal systolic velocities are noted in the proximal left external carotid artery. There is antegrade flow in the left vertebral artery. IMPRESSION: 1. 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 2. Antegrade flow in both vertebral arteries.
[2017-12-30] MEDS: diltiaZEM IVPB 100mg in NS 100 ML IV SCH ×3 (06:37→22:52)
[2017-12-30 07:26] LABS: BASO # 0.05 K/mm3 (0.0-2.0); BASO % 0.4 % (0.0-3.0); EOS % 0.3 % (1.5-5.0); GRAN # 10.73 (1.4-6.5); GRAN % 77.1 % (50.0-68.0); HEMOGLOBIN 8.4 g/dL (12.0-16.0); LYMPH # 2.3 (1.2-3.4); LYMPH % 16.2 % (22.0-35.0); MEAN CELL VOLUME 91.9 fl (80.0-105.0); MEAN CORPUSCULAR HEMOGLOBIN 28.5 pg (25.0-35.0); MEAN PLATELET VOLUME 9.6 fl (7.0-11.0); MONO # 0.8 (0.1-0.6); RBC 2.95 10^6/uL (3.5-6.1); RED CELL DISTRIBUTION WIDTH 17.4 % (11.5-14.5); WHITE BLOOD COUNT 13.9 10^3/ul (4.5-11.0)
[2017-12-30 07:44] LABS: ALB/GLOB RATIO 0.8 (1.1-1.8); ALBUMIN 2.4 g/dL (3.0-4.8); BILIRUBIN,DIRECT 0.6 mg/dL (0.0-0.4)
[2017-12-30] MEDS: Budesonide 0.5 mg/2 ml Inhal Susp UD IH SCH ×2 (07:59→19:26)
[2017-12-30] MEDS: Levalbuterol 0.63 MG/3 ML Inhal Soln UD IH SCH ×3 (07:59→19:26)
[2017-12-30] MEDS: Acetylcysteine 20% Inhal Soln (4ml) IH SCH ×3 (07:59→19:26)
--- NOTE | 2017-12-30 09:21 | PN ---
DATE: 12/30/2017 PULMONARY NOTE SUBJECTIVE: The patient appears comfortable this morning. She is not short of breath at rest. PHYSICAL EXAMINATION VITAL SIGNS: Temperature is 97.9, pulse is 85, respirations 18/20, blood pressure 145/61. Oxygen saturation on room air is 96%-97%. HEENT: Normocephalic, atraumatic. No JVD. CARDIOVASCULAR: Systolic ejection murmur at the lower left sternal border. No S3 gallop. LUNGS: Decreased breath sounds at the bases. Minimal/less rhonchi. No wheezing. EXTREMITIES: No clubbing, cyanosis or edema. Calves are nontender to palpation. GI: Abdomen is soft, nontender and nondistended. Bowel sounds are positive. SKIN: Less rash is noted. NEUROLOGIC: Limited at the present time. IMPRESSION: 1. Sepsis syndrome. 2. Chronic obstructive pulmonary disease. 3. Mild bronchospasm. 4. Atrial fibrillation. 5. Anemia. 6. Renal insufficiency. PLAN: The patient appears comfortable this morning. She is not short of breath at rest. Oxygen saturation on room air is 96%-97%. On physical exam, there is less bronchospasm noted. I will continue the current nebulizer treatments and inhaled steroids for now. I will also continue with the aspiration precautions. The patient also remains on antibiotic therapy - as per Infectious Disease. Her temperatures have now fully resolved. The leukocytosis has also fully resolved. Clinical status of the patient is certainly improved - compared to the initial presentation. Inputs by Infectious Disease and GI are noted. Physical therapy has also been consulted. I will discuss the above with Dr. Villegas. Jj De Souza MD MTDJuvenal
--- NOTE | 2017-12-30 10:23 | CP.PCM.PN ---
Subjective - Date & Time of Evaluation Date of Evaluation: 12/30/17 Time of Evaluation: 10:32 - Subjective Subjective: PGY1 Medicine Note for Dr. Villegas Patient seen and examined at bedside. No acute event overnight. Patient is awake. She is not oriented. She is unable to answer questions snd respond to commands appropriately. ROS not unobtainable due to clinical condition. Patient' s nutrition was discussed with daughter (POA), however living will states against any mechanical form of nutrition. Objective - Vital Signs/Intake and Output Vital Signs (last 24 hours): Temp Pulse Resp BP Pulse Ox 97.9 F 85 20 145/61 96 12/30/17 05:59 12/30/17 05:59 12/30/17 05:59 12/30/17 05:59 12/30/17 05:59 Intake and Output: 12/30/17 12/30/17 06:59 18:59 Intake Total 0 Balance 0 - Medications Medications: Current Medications Acetaminophen (Tylenol 325mg Tab) 650 mg PO Q4 PRN PRN Reason: Pain, Mild (1-3) Acetaminophen (Tylenol 650 Mg Supp) 650 mg RC Q6H PRN PRN Reason: Temp>= 99.5 Last Admin: 12/28/17 15:01 Dose: 650 mg Acetylcysteine (Acetylcysteine 20%) 4 ml IH [id number] [facility] Last Admin: 12/30/17 07:59 Dose: 4 ml Bisacodyl (Dulcolax) 10 mg RC HS [facility] Last Admin: 12/29/17 21:03 Dose: 10 mg Budesonide (Pulmicort Respules) 0.5 mg IH [id number] [facility] Last Admin: 12/30/17 07:59 Dose: 0.5 mg Darbepoetin Eduin (Aranesp) 60 mcg SC QWK [facility] Last Admin: 12/26/17 17:22 Dose: 60 mcg Enoxaparin Sodium (Lovenox) 60 mg SC DAILY [facility] PRN Reason: Protocol Folic Acid (Folic Acid) 1 mg IVP DAILY [facility] Last Admin: 12/29/17 13:49 Dose: 1 mg diltiaZEM IVPB 100mg in NS (Cardizem 100mg In Ns) 100 mls @ 10 mls/hr IV .Q10H [facility] PRN Reason: 10 MG/HR Last Admin: 12/30/17 06:37 Dose: 10 mls/hr Dextrose (Dextrose 5% In Water 1000 Ml) 1,000 mls @ 50 mls/hr IV .Q20H [facility] Last Admin: 12/30/17 03:30 Dose: Not Given Iron Sucrose 200 mg/ Sodium (Chloride) 110 mls @ 110 mls/hr IVPB DAILY [facility] Stop: 12/31/17 10:59 Last Admin: 12/29/17 13:48 Dose: 110 mls/hr Doxycycline Hyclate 100 mg/ (Sodium Chloride) 100 mls @ 100 mls/hr IVPB Q12 [facility] PRN Reason: Protocol Last Admin: 12/29/17 21:03 Dose: 100 mls/hr Levalbuterol HCl (Xopenex) 0.63 mg IH [id number] [facility] Last Admin: 12/30/17 07:59 Dose: 0.63 mg Levothyroxine Sodium (Synthroid) 50 mcg IVP DAILY [facility] Last Admin: 12/29/17 11:53 Dose: 50 mcg Lorazepam (Ativan) 0.5 mg IVP Q8 PRN; Protocol PRN Reason: Anxiety Last Admin: 12/27/17 11:38 Dose: 0.5 mg Pantoprazole Sodium (Protonix Inj) 40 mg IVP DAILY [facility] Last Admin: 12/29/17 11:51 Dose: 40 mg - Labs Labs: 12/30/17 06:30 12/30/17 06:30 PT 18.3 SECONDS (9.4-12.5) H 12/25/17 19:50 INR 1.59 (0.93-1.08) H 12/25/17 19:50 APTT 33.5 Seconds (25.1-36.5) 12/25/17 19:50 - Constitutional Appears: Confused, Chronically Ill - Head Exam Head Exam: ATRAUMATIC, NORMOCEPHALIC - Eye Exam Eye Exam: Normal appearance - ENT Exam ENT Exam: Mucous Membranes Dry - Respiratory Exam Respiratory Exam: Decreased Breath Sounds - Cardiovascular Exam Cardiovascular Exam: Irregular Rhythm, +S1, +S2 - GI/Abdominal Exam GI & Abdominal Exam: Soft, Normal Bowel Sounds. absent: Tenderness - Extremities Exam Extremities Exam: absent: Pedal Edema - Neurological Exam Neurological Exam: Alert, Awake. absent: Oriented x3 - Psychiatric Exam Psychiatric exam: Flat Affect - Skin Skin Exam: Dry, Rash, Warm Assessment and Plan - Assessment and Plan (Free Text) Plan: 87 year old female with past medical history of atrial fibrillation, hypertension, dementia, femur fracture, and hypothyroidism initially presented with altered mental status and A-fib with RVR. A-fib rate controlled. Persistent AMS, possibly secondary to worsening dementia. She is DNR/DNI. Patient is currently on Zyvox and Azactam as per ID. Droplet precautions until etiology of rash known. Potassium being replaced. Continue IV fluids. Patient will be receiving 1 unit of PRBC, will obtain consent from POA. Palliative care consult to clarify goals of care with family. Ramsey Crenshaw PGY1
[2017-12-30] MEDS: Enoxaparin 60 mg Syringe SC SCH (11:18)
[2017-12-30] MEDS: Levothyroxine 100 mcg (0.1 mg) Inj IVP SCH (11:20)
--- NOTE | 2017-12-30 13:31 | PN ---
DATE: 12/30/2017 SUBJECTIVE: The patient is lying in bed, confused. She is nonverbal. MEDICATIONS: Currently include acetylcysteine 20% inhaled every 6 hours, Aranesp 30 mcg subcu weekly, Ativan 0.5 mg IV q. 8 hours as needed for anxiety, diltiazem 100 mg IV, doxycycline 100 mg IV q. 12 hours, Dulcolax 10 mg rectal suppository at bedtime, folic acid 1 mg IV daily, Venofer 200 mg IV daily, Lovenox 60 mg subcu daily, potassium chloride 40 mEq IV, pantoprazole 40 mg IV daily, budesonide 0.5 mg inhaled q. 12 hours, Levoxyl 50 mcg IV daily, acetaminophen 650 mg suppository daily as needed for temp greater than 99.5. PHYSICAL EXAMINATION GENERAL: The patient is lying in bed, awake, but nonverbal. VITAL SIGNS: Reveal a temperature of 98.9, blood pressure 154/84, heart rate 91. HEENT: Reveal sclerae to be white. Conjunctivae pale. NECK: Supple. CHEST: Reveal distant breath sounds. HEART: Reveals an irregularly irregular rate. Heart rate is controlled. ABDOMEN: Soft, nontender. EXTREMITIES: Show no edema. SKIN: Reveal a maculopapular rash on her torso and extremities. LABORATORY DATA: Revealed white blood cell count of 13.9, hemoglobin 8.4. Chemistries reveal potassium of 3, sodium 147, BUN 29, creatinine 1.4, albumin is 2.4. Her Rubeola IgG is elevated at 184. Her Rubeola IgM is pending. IMPRESSION: 1. Oropharyngeal dysphagia in a patient with dementia. 2. Systemic inflammatory response syndrome, rule out sepsis. 3. Maculopapular rash with a positive Rubeola IgG, awaiting Rubeola IgM for an acute measles infection. 4. Paroxysmal atrial fibrillation. RECOMMENDATIONS: I had a lengthy discussion with the patient's family. They had numerous questions as to the patient's prognosis, which I explained was poor given all her comorbid issues. I also spoke with Isabel Peres the advanced directive and palliative care nurse regarding the patient's advanced directive, which states no mechanical feedings if the patient is considered terminal or has a poor prognosis. Given the patient's current condition, we will hold off on PEG placement for now. We are awaiting her IgM Rubeola titers if the patient improves and her Rubeola titers IgM are negative, can consider PEG placement at that time. If the patient's condition improves after PEG placement, obviously PEG feedings will be continued with periodic check of her ability to swallow. If her condition continues to deteriorate despite PEG placement, I instructed the family that the feedings can at that time be held. Again, I had a long lengthy discussion with the family regarding the patient's condition. Izaiah Hernandez MD
--- NOTE | 2017-12-30 18:14 | PN ---
DATE: 12/30/2017 CARDIOLOGY FOLLOWUP CONSULTATION SUBJECTIVE: The patient is without distress. PHYSICAL EXAMINATION: VITAL SIGNS: Blood pressure is 154/84, heart rate with atrial fibrillation in the 90s. NECK: Negative JVD. LUNGS: Without rales. HEART: S1 and S2 with a 2/6 systolic ejection murmur. EXTREMITIES: Without edema. LABORATORY DATA: Hemoglobin is 8.4. Chemistries: BUN and creatinine unchanged. IMPRESSION: 1. Paroxysmal atrial fibrillation. 2. Heart rate is well controlled. 3. Dementia. 4. Chronic obstructive pulmonary disease. 5. Aortic valve sclerosis. 6. Pulmonary hypertension. Given these findings,the patient is still being treated with IV Cardizem until medications can be given through the GI tract. Carmine Bailey MD
--- NOTE | 2017-12-30 23:05 | PN ---
DATE: 12/30/2017 SUBJECTIVE: Patient is in bed, in no acute distress, was seen earlier this morning in room 263, bed 1. PHYSICAL EXAMINATION: VITAL SIGNS: Temperature is 98, blood pressure is 150/80, respiratory rate 20, heart rate of 91. HEENT: Unremarkable. NECK: Supple. LUNGS: Have decreased breath sounds. HEART: Normal S1, S2. ABDOMEN: Soft, nontender. LABORATORY EXAMINATION: Reveals a white count of 13,900, hemoglobin of 8, platelets of 153. BUN of 29, creatinine of 1.4, procalcitonin 0.35. Urinalysis is noted and serology is noted. Microbiology reveals cultures are negative. Sacral cultures with Andressa albicans. Review of medications reveals the patient is on doxycycline. Dr. Hernandez's note is reviewed from today. Dr. De Souza's progress note is reviewed. ASSESSMENT AND PLAN: An 87-year-old female who was seen early this morning in room 263, bed 1 with systemic inflammatory response syndrome with sepsis and respiratory tract infection, maculopapular rash, drug reaction versus viral exanthem. I am unable to communicate with the patient while this morning in a patient with hypertension, paroxysmal atrial fibrillation, hypothyroidism and was treated with Zyvox, now on Azactam and doxycycline has been discontinued. Zyvox and Azactam have been discontinued. Today is day #5 of doxycycline, will complete 7 days and we will follow with you. Patient will be IgG is positive, which means infection. IgM is pending. We will follow with you. Spike Danielson MD
[2017-12-31] MEDS: Acetylcysteine 20% Inhal Soln (4ml) IH SCH ×5 (00:55→20:23)
[2017-12-31] MEDS: Levalbuterol 0.63 MG/3 ML Inhal Soln UD IH SCH ×5 (00:55→20:23)
--- NOTE | 2017-12-31 01:20 | PN ---
DATE: 12/30/2017 SUBJECTIVE: The patient was seen in room 263, bed 1. The patient is still in isolation. The patient is seen lying in the bed. The patient appears to be arousable, awake, responsive, confused. Overnight nurse's notes were reviewed. The patient slept during the night according to the nurses' notes. PHYSICAL EXAMINATION: VITAL SIGNS: T-max 99.1. Telemetry shows paroxysmal atrial fibrillation, heart rate 89, 70, 74; blood pressure ranging from 143/75 to 154/84; respiration 20; O2 saturation is 93%, 97%, 96%. Intake/output noted. HEENT: The patient's head examination normocephalic, atraumatic. HEENT examination shows pinkish pale conjunctivae. Anicteric sclerae. No oropharyngeal lesion. Dry oral mucosa. Pale conjunctiva. No jugular venous distention. Soft carotid bruit. CHEST: Kyphosis. CARDIOVASCULAR: S1, S2. Irregular rhythm. Positive systolic murmur, left sternal border, right second intercostal space, left second intercostal space. ABDOMEN: Soft. Positive bowel sound. GENITALIA: Female. RECTAL: Deferred. Positive sacral decubitus ulceration. MUSCULOSKELETAL: Shows a body mass index of 28.2. NEUROLOGIC: The patient is awake, responsive, confused, disoriented. DIAGNOSTICS: On 12/30/2017, WBC 13.9, hemoglobin and hematocrit 8.4 and 27.1, platelet 153. Granulocytes 77% segs. Sodium 147, potassium 3.0, chloride 113, CO2 of 28, anion gap 9, BUN 29, creatinine 1.4, GFR 43, glucose 107, calcium 8.0, magnesium 2.3, total protein 5.4, albumin 2.4. Blood cultures no growth. CT head, carotid ultrasound was noted. IMPRESSION AND PLAN 1. Toxic metabolic encephalopathy with advanced dementia. 2. Paroxysmal atrial fibrillation. 3. Severe oropharyngeal dysphagia with risk for aspiration. 4. Feeding dysfunction. 5. Hypertension. 6. High-grade fever of 101. 7. Cachexia. 8. Leukocytosis with granulocytosis. 9. Normocytic anemia with decreasing hemoglobin and hematocrit. 10. Hypernatremia. 11. Hypokalemia. 12. Hypomagnesemia. 13. Protein malnutrition. 14. Hypoalbuminemia. 15. Hypovitaminosis D. 16. Elevated C-reactive protein of greater than 15. 18. Sacral decubitus ulceration. 19. Proteinuria. 20. Ketonuria. 21. Pyuria, bacteriuria, funguria. 22. Andressa albicans sacral decubitus ulceration. 23. B+ blood type. 24. Maxillary and ethmoid sinus mucosal thickening and minimal fluid. 25. Bilateral 20-39% proximal internal carotid artery stenosis. 26. Diffuse bone demineralization. 27. Status post open reduction and internal fixation of the left transcervical fracture with normal bone alignment and callus formation of the medial proximal fracture segment. 28. Malnutrition. 39. Protein malnutrition and hypoalbuminemia. 30. Paroxysmal atrial fibrillation. 31. Systemic inflammatory response syndrome. 32. Paroxysmal atrial fibrillation. 33. Questionable drug rash and maculopapular rash. Rule out viral exanthem. 34. Severe deconditioning and gait dysfunction. 35. Iron-deficiency anemia. 36. Constipation. 37. Hypothyroidism. 38. Feeding dysfunction. 39. Stage III decubitus ulceration. 40. Severe deconditioning and gait dysfunction and possible functional quadriplegia. Plan at this time, the patient has been ordered PRBC. The patient's overall prognosis is guarded, which has been explained to the patient's daughter and the son yesterday and even today, Dr. Hernandez had a lengthy meeting with the patient's family and he is also emphasized and reinforced that the patient's overall prognosis is poor, which the patients family understand. The patient's case is referred to Isabel Peres for Palliative Care evaluation if the patient agrees. CURRENT CONSULTATION: 1. Cardiology. 2. Infectious Disease 3. Orthopedics. 4. Gastroenterology. 5. Neurology. The patient has been typed and crossmatched and ordered 1 unit of PRBC. Current medications: Mucomyst nebulizer 20% 4 mL q. 6 hours, Aranesp 60 mcg subcu weekly, Ativan 0.5 mg IV q. 8 hours p.r.n., Cardizem drip at 10 mg per hour, D5W with potassium 40 mEq at 50 mL an hour for hypokalemia. The patient has been ordered doxycycline 100 mg IV q. 12, Dulcolax suppository 10 mg at bedtime, folic acid 1 mg IV daily, Venofer 200 mg IV daily, Lovenox 60 mg subcu daily, Protonix 40 mg IV daily, Pulmicort nebulizer 0.5 mg nebulizer q. 12, Synthroid 50 mcg IV daily, Tylenol 650 mg suppository q. 6 p.r.n., Xopenex nebulizer 0.63 mg q. 6 hours. The patient is n.p.o. Aspiration precaution. Head of the bed at 30 degrees. Neuro checks. HUMBERTO Heath, ALMITAs. In addition, we have requested a Neurology consultation for the patient's neurological status. We will await further recommendations by about the recommendations. The patient is unable to take any p.o. medicines. The patient's overall prognosis is guarded to poor. Family aware. Awaiting evaluation by Neurology and Palliative Care. Dictated and electronically signed, not read. Matt Villegas MD
[2017-12-31 06:28] LABS: BASO # 0.09 K/mm3 (0.0-2.0); BASO % 0.8 % (0.0-3.0); EOS # 0.4 (0.0-0.7); EOS % 3.2 % (1.5-5.0); GRAN # 8.55 (1.4-6.5); GRAN % 75.5 % (50.0-68.0); LYMPH # 1.7 (1.2-3.4); LYMPH % 15.3 % (22.0-35.0); MEAN CELL VOLUME 91.5 fl (80.0-105.0); MEAN CORPUSCULAR HEMOGLOBIN 28.5 pg (25.0-35.0); MEAN CORPUSCULAR HGB CONC 31.1 g/dl (31.0-37.0); MEAN PLATELET VOLUME 9.4 fl (7.0-11.0); MONO # 0.6 (0.1-0.6); MONO % 5.2 % (1.0-6.0); RBC 3.65 10^6/uL (3.5-6.1); RED CELL DISTRIBUTION WIDTH 17.3 % (11.5-14.5); WHITE BLOOD COUNT 11.3 10^3/ul (4.5-11.0)
[2017-12-31 06:47] LABS: ALB/GLOB RATIO 0.8 (1.1-1.8); ALBUMIN 2.4 g/dL (3.0-4.8); BILIRUBIN,DIRECT 0.6 mg/dL (0.0-0.4); CALCIUM 7.9 mg/dL (8.4-10.5)
[2017-12-31 06:51] LABS: HEMOGLOBIN 10.4 g/dL (12.0-16.0)
[2017-12-31] MEDS ORDERED: Magnesium Sulfate 1 gm in D5W 1 GM/100 ML BAG IVPB ONE (06:51)
--- NOTE | 2017-12-31 06:54 | PN ---
DATE: 12/31/2017 PULMONARY NOTE SUBJECTIVE: The patient appears comfortable this morning. She is not short of breath at rest. She is awake and alert. OBJECTIVE VITAL SIGNS: Temperature is 99.0, pulse 94, respirations 18, blood pressure 136/71. Oxygen saturation on nasal cannula is 97%. HEENT: Normocephalic, atraumatic. NECK: No JVD. CARDIOVASCULAR: Systolic ejection murmur at the lower left sternal border. No S3 gallop. LUNGS: Decreased breath sounds at the bases. Very minimal/less rhonchi. No wheezing. EXTREMITIES: No clubbing, cyanosis or edema. Calves are nontender to palpation. GASTROINTESTINAL: Abdomen is soft, nontender and nondistended. Bowel sounds are positive. SKIN: Less rash is noted. NEUROLOGIC: Exam limited at the present time. IMPRESSION 1. Sepsis syndrome. 2. Chronic obstructive pulmonary disease. 3. Mild bronchospasm. 4. Atrial fibrillation. 5. Anemia. 6. Renal insufficiency. PLAN: The patient appears comfortable this morning. She is not short of breath at rest. She is awake and alert. On physical exam, her bronchospasm continues to resolve. In addition, there is no significant alveolar-arterial gradient. I will continue with the current nebulizer treatments and inhaled steroids for now. The patient remains on antibiotic therapy - as per Infectious Disease. Input by Dr. Danielson is noted. Temperatures have primarily resolved. Inputs by Cardiology and GI are also noted. The patient remains on a Cardizem drip. The clinical status of the patient is certainly improved - compared to the initial presentation. However, the patient's future status/prognosis remains very guarded at best. I will discuss the above with the attending physician. Jj De Souza MD MTDJuvenal
[2017-12-31] MEDS: Budesonide 0.5 mg/2 ml Inhal Susp UD IH SCH ×2 (07:55→20:23)
[2017-12-31] MEDS ORDERED: Albumin Human 25% (12.5 gm/50 ml) IV SCH (09:30)
[2017-12-31] MEDS: Enoxaparin 60 mg Syringe SC SCH (10:29)
[2017-12-31] MEDS: Levothyroxine 100 mcg (0.1 mg) Inj IVP SCH (10:30)
[2017-12-31] MEDS: diltiaZEM IVPB 100mg in NS 100 ML IV SCH ×2 (11:00→20:00)
--- NOTE | 2017-12-31 13:02 | CON ---
DATE: 12/31/2017 NEUROLOGY CONSULTATION CHIEF COMPLAINT: Evaluate for dementia. HISTORY OF PRESENT ILLNESS: This is an 87-year-old woman with past medical history of AFib, hypertension, hypothyroidism, who presented from [facility] for fever, rash, and shortness of breath, being followed by Pulmonary, has a diffuse maculopapular rash which has been ruled out for sepsis versus infections or measles, was consulted today for mental status in terms of dementia. toxic metabolic encephalopathy superimposed on underlying marked cognitive impairment, is very cachectic, is a very poor historian. PAST MEDICAL HISTORY: Hypertension, hypothyroidism, atrial fibrillation, arthritis, mastoiditis, COPD. FAMILY HISTORY: Negative for inherited disease. SOCIAL HISTORY: Nonsmoker, nondrinker, no illicit drug use . ALLERGIES: ALLERGIC TO PENICILLIN AND SULFA DRUGS. MEDICATIONS: Reviewed by nurse per reconciliation sheet. REVIEW OF SYSTEMS: A 14-point review of systems is negative except per the HPI. LABORATORY DATA: Sodium is 146, potassium 3.5, chloride 112, carbon dioxide 26. BUN of 24, creatinine 1.2. Random glucose of 98. PHYSICAL EXAMINATION: GENERAL: Patient is very cachectic looking with a diffuse maculopapular rash, lethargic, minimally verbal. HEENT: Atraumatic, normocephalic. PERRLA. Extraocular muscles intact. HEART: Regular rate and rhythm. No murmurs, rubs, or gallops. ABDOMEN: Soft, nontender, and nondistended. Bowel sounds present. EXTREMITIES: Peripheral pulses 2+ felt bilaterally. SKIN: Maculopapular rash on her torso and extremities. NEUROLOGIC: Patient is lethargic, does follow simple commands, is alert and oriented to self, not month or year. Recall after 5 minutes is 0/3. Poor attention span. Poor thought process. Lack of judgement. Speech is very hypophonic, no aphasia noted. Cranial nerves II through XII intact. Motor exam: Very cachectic looking. Slightly increased tone throughout. Moves all extremities. No pronator drift seen. Sensory exam: Withdraws to localized noxious stimulus. Light touch intact. DTRs are 1+ throughout. Coordination and gait deferred for now. ASSESSMENT AND PLAN: This is an 87-year-old woman with history of hypertension, hypothyroidism, atrial fibrillation, arthritis, chronic obstructive pulmonary disease, came in from [facility] after developing a fever and maculopapular rash and some mild shortness of breath, being followed by Pulmonary, Infectious Diseases, was consulted for evaluation of dementia. Patient does have moderate to severe cognitive impairment. 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 At this time, she has a lot of metabolic as well as infectious issues going on. She has paroxysmal atrial fibrillation which is being followed by Cardiology, is on Cardizem. Heart rate is controlled. At this time, recommend; 1. Continue to monitor electrolytes and correct accordingly. 2. Continue the Cardizem for her atrial fibrillation to rate control. 3. Recommend thiamine 100 mg IV daily for neuronal activation. 4. Seroquel 12.5 mg p.o. at bedtime for agitation. 5. Delirium precautions. 6. CT scan of the head reviewed. No acute intracranial abnormality and color Doppler showed 20% to 39% proximal internal carotid artery stenosis. Therefore, I have just recommended baby aspirin for stroke prevention. 7. Could possibly need more nutrition. Could consider percutaneous endoscopic gastrostomy and palliative care. Once again, thank you for this consult. Diogenes Santiago MD
--- NOTE | 2017-12-31 14:34 | PN ---
DATE: 12/31/2017 CARDIOLOGY FOLLOWUP SUBJECTIVE: The patient is without symptoms, although she is markedly confused. She is not able to take p.o. She failed her swallowing eval. PHYSICAL EXAMINATION: VITAL SIGNS: Blood pressure is 145/83, the heart rates in the 90s, atrial fibrillation. NECK: Negative JVD. LUNGS: Decreased breath sounds. HEART: Reveal S1, S2. EXTREMITIES: Without edema. LABORATORY DATA: Hemoglobin is 10.4. Chemistries essentially unchanged. IMPRESSION: 1. The patient failed swallowing evaluation. 2. Atrial fibrillation with the heart rate controlled with IV Cardizem. 3. Aortic valve sclerosis. 4. Pulmonary hypertension. 5. Chronic obstructive pulmonary disease. PLAN: Given these findings, the patient will need to remain on telemetry, on IV Cardizem and so she is able to control until she is able to take p.o. medications. Carmine Bailey MD
--- NOTE | 2017-12-31 15:23 | PN ---
DATE: 12/31/2017 SUBJECTIVE: The patient is seen lying in room 263, bed 1. The patient is still in isolation. The patient is arousable, responsive, but is still confused, arousable to verbal and painful stimuli. Overnight nurse's notes were reviewed. The patient no adverse events documented. OBJECTIVE: VITAL SIGNS: T-max 98.6; heart rates 85, 77, 67, 94. Telemetry shows sinus rhythm. Blood pressure 136/71, respirations 18, O2 sat 97%. INTAKE/OUTPUT: Not correctly documented. HEENT: Head examination normocephalic, atraumatic. HEENT examination shows pinkish conjunctivae. Anicteric sclerae, dry oral mucosa. Positive facial muscle wasting. Positive cachexia noted. Questionable soft carotid bruit. CHEST: Kyphosis. LUNGS: Shows occasional rhonchi, upper lung iqbal anteriorly. CARDIOVASCULAR: S1, S2. Positive systolic murmur left sternal border, right second intercostal space, left second intercostal space. ABDOMEN: Soft. Positive bowel sound. No hepatosplenomegaly noted. GENITALIA: Female. LOWER EXTREMITY: Shows no pitting, no calf numbness, no Buck's signs. MUSCULOSKELETAL: Shows a body mass index of 22, weight of 115. DIAGNOSTICS: On 12/31/2017; WBC 11.3, hemoglobin/hematocrit 10.4/33.4, platelet 124. Granulocytes 76. Sodium is down to 146, potassium is down to 3.5, chloride 112, CO2 of 26, anion gap 11, BUN 24, creatinine 1.2, GFR 52, glucose 98, calcium 7.9, magnesium 1.9, albumin is 2.4. Albumin is consistently 2.4 with low protein of 5.3 and 5.4. Blood cultures are negative. The patient received 1 unit of PRBC. IMPRESSION AND PLAN: 1. Altered mental status with confusional state and acute exacerbation of dementia. 2. Systemic inflammatory response syndrome. 3. Maculopapular rash questionable drug reaction versus viral exanthem. 4. Paroxysmal atrial fibrillation with rapid ventricular response. 5. Cachexia. 6. Protein-calorie malnutrition. 7. Leukocytosis with granulocytosis. 8. Normocytic iron-deficiency anemia with decreasing hemoglobin/hematocrit. 9. Status post packed red blood cell transfusion. 10. Hypernatremia. 11. Hypokalemia. 12. Acute kidney injury (resolved). 13. Hypocalcemia. 14. Hypomagnesemia. 15. Hypoalbuminemia. 16. Hypovitaminosis D. 17. History of vitamin B12 deficiency, status post vitamin B12 treatment. 18. Proteinuria, ketonuria, microscopic hematuria, pyuria, bacteriuria, funguria. 19. Andressa albicans stage III decubitus ulceration. 20. Severe gait dysfunction and deconditioning and bedridden status versus functional quadriplegia. 21. Feeding dysfunction. 22. Status post PRBC (packed red blood cell) transfusion x1. 23. Moderate to severe oropharyngeal dysphagia with high risk for aspiration and feeding dysfunction. PLAN: At this time, the patient has been ordered repeat labs. The patient's measles IgM antibody is still pending. The patient's current consultations; 1. Cardiology. 2. Infectious Disease. 3. Orthopedics. 4. Gastroenterology. 5. Neurology. 6. Palliative Care. 7. Pulmonary. CURRENT MEDICATIONS: Mucomyst 20% 4 mL every 6 hours. The patient was started on albumin 25 g q.8 hours x3. Aranesp 60 mcg subcu weekly, Ativan 0.5 mg IV q.8 p.r.n. The patient is on Cardizem drip as per Cardiology. The patient is on D5W with 40 mEq KCl in each liter but the patient's potassium is still low. The patient has been ordered. The patient is on doxycycline. The patient is on D5W with 40 mEq KCl at 50 mL an hour. The patient is on doxycycline 100 mg IV q.12, Dulcolax suppository 10 mg rectal suppository q.h.s. Folic acid 1 mg IV daily, Venofer 200 mg IV daily. Lovenox 60 mg subcu daily. The patient has been given potassium riders to correct hypokalemia, Protonix 40 IV daily, Pulmicort nebulizer 0.5 mg q.12, Synthroid 50 mcg IV daily, Tylenol p.r.n., Xopenex nebulizer 0.63 mg every 6 hours. The patient has been ordered head of the bed at 30 degrees, out of bed, HUMBERTO stockings, SCDs, physical therapy, occupational therapy, ambulation therapy. We are still awaiting for recommendation by the Palliative Care. The patient was seen by the physical and social professionals. Patient's case is referred to social professionals. The patient has been seen by the physical therapist, last evaluation was 12/26/2017. After that, the patient has not been seen by physical therapist. Initial evaluation on 12/26/2017, by the physical therapist recommend subacute rehab. The patient will be continued on the above therapeutic intervention with further diagnostic therapeutic intervention. We will await further recommendation by Neurology and Palliative Care. The patient's prognosis is poor. The patient's family has been extensively explained about all above on multiple occasions. All questions and concerned answered. Dictated and electronically signed, not read. Matt Villegas MD
[2017-12-31] MEDS: Thiamine 100 mg/ml Inj IV SCH (17:21)
[2017-12-31] MEDS: Albumin Human 25% (25 gm/100 ml) IV SCH ×2 (17:30→21:14)
--- NOTE | 2018-01-01 00:35 | PN ---
DATE: SUBJECTIVE: Patient is seen in bed, in no acute distress, nontoxic. PHYSICAL EXAMINATION VITAL SIGNS: Temperature is 98, blood pressure is 160/70, respiratory rate of 18, heart rate of 81. HEENT: Unremarkable. NECK: Supple. LUNGS: Have decreased breath sounds. HEART: Normal S1 and S2. ABDOMEN: Soft, nontender. LABORATORY DATA: Reveals a white count of 11,300, hemoglobin of 10, platelets of 124. Chemistry is noted, BUN of 24, creatinine of 1.2, procalcitonin is 0.35. Measles IgM is negative. ASSESSMENT AND PLAN: This is an 87-year-old female, who was seen early this morning in room 263, bed 1, with systemic inflammatory response syndrome and sepsis, respiratory tract infection, maculopapular rash, which is resolving, most likely a drug reaction, and day #6 of doxycycline. May discontinue the isolation. Overall prognosis is poor. Spike Danielson MD
[2018-01-01] MEDS: Levalbuterol 0.63 MG/3 ML Inhal Soln UD IH SCH ×4 (01:03→22:45)
[2018-01-01] MEDS: Acetylcysteine 20% Inhal Soln (4ml) IH SCH ×4 (01:03→22:45)
[2018-01-01] MEDS: diltiaZEM IVPB 100mg in NS 100 ML IV SCH ×3 (04:10→22:54)
[2018-01-01] MEDS: Albumin Human 25% (25 gm/100 ml) IV SCH ×2 (05:03→15:28)
[2018-01-01 06:32] LABS: BASO # 0.11 K/mm3 (0.0-2.0); BASO % 0.9 % (0.0-3.0); EOS # 0.4 (0.0-0.7); EOS % 2.8 % (1.5-5.0); GRAN # 10.08 (1.4-6.5); GRAN % 81.4 % (50.0-68.0); HEMOGLOBIN 9.5 g/dL (12.0-16.0); LYMPH # 1.3 (1.2-3.4); LYMPH % 10.2 % (22.0-35.0); MEAN CORPUSCULAR HGB CONC 31.1 g/dl (31.0-37.0); MEAN PLATELET VOLUME 9.9 fl (7.0-11.0); MONO # 0.6 (0.1-0.6); MONO % 4.7 % (1.0-6.0); RBC 3.28 10^6/uL (3.5-6.1); RED CELL DISTRIBUTION WIDTH 17.3 % (11.5-14.5); WHITE BLOOD COUNT 12.4 10^3/ul (4.5-11.0)
[2018-01-01 07:05] LABS: ALB/GLOB RATIO 1.3 (1.1-1.8); ALBUMIN 3.6 g/dL (3.0-4.8); ALT/SGPT 25 U/L (7-56); AST/SGOT 23 U/L (14-36); BILIRUBIN,DIRECT 0.7 mg/dL (0.0-0.4); BLOOD UREA NITROGEN 20 mg/dL (7-21); CALCIUM 8.6 mg/dL (8.4-10.5); GFR AFRICAN-AMERICAN > 60; GFR NON-AFRICAN AMERICAN 53
[2018-01-01] MEDS ORDERED: Magnesium Sulfate 1 gm in D5W 1 GM/100 ML BAG IVPB ONE ×2 (07:15→18:59)
--- NOTE | 2018-01-01 07:25 | PN ---
DATE: 01/01/2018 PULMONARY NOTE SUBJECTIVE: The patient appears more lethargic this morning. The patient also appears slightly more short of breath this morning. PHYSICAL EXAMINATION: VITAL SIGNS: Temperature is 97.8, pulse 89, respirations 20/22, blood pressure 148/53. Oxygen saturation on nasal cannula is 98%. HEENT: Normocephalic, atraumatic. No JVD. CARDIOVASCULAR: Systolic ejection murmur at the lower left sternal border. No S3 gallop. LUNGS: Decreased breath sounds at the bases. Increased rhonchi (right worse than left). EXTREMITIES: No clubbing, cyanosis or edema. Calves are nontender to palpation. GI: Abdomen is soft, nontender and nondistended. Bowel sounds are positive. SKIN: Less rash is noted. NEUROLOGIC: Limited at the present time. IMPRESSION: 1. Sepsis syndrome. 2. Chronic obstructive pulmonary disease. 3. Increased bronchospasm. 4. Atrial fibrillation. 5. Anemia. 6. Renal insufficiency. PLAN: The patient appears more lethargic this morning. She also appears slightly more short of breath. I did discuss the case with the night nurse at length. The night nurse stated that the patient had been more lethargic during her shift. On physical exam, there is increased bronchospasm noted. However, there is no significant alveolar-arterial gradient. I will continue with the current nebulizer treatments and inhaled steroids for now. I have also ordered a stat chest x-ray to be done. The clinical picture is one of possible aspiration. The patient has been on aspiration precautions. I would continue with the antibiotic coverage as per Infectious Disease. There are no temperatures noted. The leukocytosis is resolving. I would continue with the Cardiology and neurologic evaluations. Inputs are noted. Clinical status of this the patient appears very guarded at this point in time. Overall status/prognosis is poor. I will discuss the above with Dr. Villegas. Jj De Souza MD cc: MTDD
[2018-01-01] MEDS: Budesonide 0.5 mg/2 ml Inhal Susp UD IH SCH ×2 (07:55→22:45)
--- NOTE | 2018-01-01 09:18 | RAD ---
HISTORY: lethargic, increased congestion COMPARISON: 12/25/2017. FINDINGS: LUNGS: There is haziness in the right lower lobe and airspace disease in the left perihilar region and lower lobe. There is severe pulmonary venous congestion PLEURA: Bilateral pleural effusions, larger on the left, no pneumothorax apparent. CARDIOVASCULAR: Normal. OSSEOUS STRUCTURES: Severe dextroscoliosis in the spine and multilevel degenerative changes. VISUALIZED UPPER ABDOMEN: Normal. OTHER FINDINGS: None. IMPRESSION: Severe pulmonary venous congestion and presumable pulmonary edema with pleural effusions, larger on the left. Left lower lobe airspace disease may represent atelectasis or pneumonia.
[2018-01-01] MEDS: Levothyroxine 100 mcg (0.1 mg) Inj IVP SCH (10:13)
[2018-01-01] MEDS: Enoxaparin 60 mg Syringe SC SCH (10:14)
[2018-01-01] MEDS: Thiamine 100 mg/ml Inj IV SCH (10:18)
--- NOTE | 2018-01-01 11:17 | CP.PCM.PN ---
Subjective - Date & Time of Evaluation Date of Evaluation: 01/01/18 Time of Evaluation: 09:45 - Subjective Subjective: Medicine Note for Dr. Villegas Patient seen and examined at bedside. No acute event overnight. Patient is awake. She is not oriented. She is unable to answer questions and respond to commands appropriately. She is arousable by tactile stimuli. ROS not unobtainable due to clinical condition. Breathing slightly worse likely due to aspiration. CXR being repeated this morning. Objective - Vital Signs/Intake and Output Vital Signs (last 24 hours): Temp Pulse Resp BP Pulse Ox 97.8 F 89 20 148/53 L 98 01/01/18 06:00 01/01/18 06:00 01/01/18 06:00 01/01/18 10:13 01/01/18 06:00 Intake and Output: 01/01/18 01/01/18 06:59 18:59 Intake Total 720 Balance 720 - Medications Medications: Current Medications Acetaminophen (Tylenol 325mg Tab) 650 mg PO Q4 PRN PRN Reason: Pain, Mild (1-3) Acetaminophen (Tylenol 650 Mg Supp) 650 mg RC Q6H PRN PRN Reason: Temp>= 99.5 Last Admin: 12/28/17 15:01 Dose: 650 mg Acetylcysteine (Acetylcysteine 20%) 4 ml IH [id number] [facility] Last Admin: 01/01/18 07:55 Dose: 4 ml Albumin Human (Albumin Human 25% (25 Gm/100 Ml)) 25 gm IV Q8 [facility] Last Admin: 01/01/18 05:03 Dose: 25 gm Aspirin (Aspirin Supp) 300 mg RC DAILY [facility] Last Admin: 01/01/18 10:14 Dose: 300 mg Bisacodyl (Dulcolax) 10 mg RC HS [facility] Last Admin: 12/31/17 21:15 Dose: 10 mg Budesonide (Pulmicort Respules) 0.5 mg IH [id number] [facility] Last Admin: 01/01/18 07:55 Dose: 0.5 mg Darbepoetin Eduin (Aranesp) 60 mcg SC QWK [facility] Last Admin: 12/26/17 17:22 Dose: 60 mcg Enoxaparin Sodium (Lovenox) 60 mg SC DAILY [facility] PRN Reason: Protocol Last Admin: 01/01/18 10:14 Dose: 60 mg diltiaZEM IVPB 100mg in NS (Cardizem 100mg In Ns) 100 mls @ 10 mls/hr IV .Q10H [facility] PRN Reason: 10 MG/HR Last Admin: 01/01/18 04:10 Dose: 10 mls/hr Doxycycline Hyclate 100 mg/ (Sodium Chloride) 100 mls @ 100 mls/hr IVPB Q12 [facility] PRN Reason: Protocol Last Admin: 01/01/18 10:19 Dose: 100 mls/hr Potassium Chloride (Potassium Chloride 20 Meq/100 Ml) 20 meq in 100 mls @ 50 mls/hr IVPB ONCE ONE Stop: 01/01/18 15:59 Levalbuterol HCl (Xopenex) 0.63 mg IH [id number] [facility] Last Admin: 01/01/18 07:55 Dose: 0.63 mg Levothyroxine Sodium (Synthroid) 50 mcg IVP DAILY [facility] Last Admin: 01/01/18 10:13 Dose: 50 mcg Lorazepam (Ativan) 0.5 mg IVP Q8 PRN; Protocol PRN Reason: Anxiety Last Admin: 12/31/17 17:46 Dose: 0.5 mg Pantoprazole Sodium (Protonix Inj) 40 mg IVP DAILY [facility] Last Admin: 01/01/18 10:13 Dose: 40 mg Quetiapine Fumarate (Seroquel) 12.5 mg PO HS [facility] PRN Reason: Protocol Last Admin: 12/31/17 21:16 Dose: Not Given Rivastigmine (Exelon 4.6 Mg/24 Hr Patch) 1 patch TD DAILY [facility] Last Admin: 01/01/18 10:19 Dose: 1 patch Thiamine HCl (Vitamin B1 Inj) 100 mg IV DAILY [facility] Last Admin: 01/01/18 10:18 Dose: 100 mg - Labs Labs: 01/01/18 05:30 01/01/18 05:30 PT 18.3 SECONDS (9.4-12.5) H 12/25/17 19:50 INR 1.59 (0.93-1.08) H 12/25/17 19:50 APTT 33.5 Seconds (25.1-36.5) 12/25/17 19:50 - Constitutional Appears: No Acute Distress, Cachectic, Chronically Ill - Head Exam Head Exam: ATRAUMATIC, NORMOCEPHALIC - Eye Exam Eye Exam: EOMI Pupil Exam: PERRL - ENT Exam ENT Exam: Mucous Membranes Moist - Respiratory Exam Respiratory Exam: Decreased Breath Sounds, Rales, Rhonchi - Cardiovascular Exam Cardiovascular Exam: Irregular Rhythm, +S1, +S2 - GI/Abdominal Exam GI & Abdominal Exam: Soft, Normal Bowel Sounds. absent: Tenderness - Extremities Exam Extremities Exam: absent: Pedal Edema, Tenderness - Neurological Exam Neurological Exam: Altered, Awake - Psychiatric Exam Psychiatric exam: Flat Affect - Skin Skin Exam: Dry, Rash, Warm Assessment and Plan - Assessment and Plan (Free Text) Plan: 87 year old female with past medical history of atrial fibrillation, hypertension, dementia, femur fracture, and hypothyroidism initially presented with altered mental status and A-fib with RVR. A-fib rate controlled. Persistent AMS, possibly secondary to worsening dementia. She is DNR/DNI. Continuing IV ABX as per ID. Measles negative so Droplet precautions rescinded. CXR reveals congestion so lasix will be given after Potassium replaced. D/C IV fluids. Palliative care consult to clarify goals of care with family. Ramsey Crenshaw PGY1
[2018-01-01] MEDS: Levalbuterol 0.63 MG/3 ML Inhal Soln UD IH PRN (11:34)
--- NOTE | 2018-01-01 13:07 | PN ---
DATE: 01/01/2018 SUBJECTIVE: The patient is seen in room 263, bed 1. Isolation was discontinued. The patient is lying in the bed, responsive to verbal and painful stimuli. The patient is arousable. The patient was found to have some congestion this morning. Chest x-ray was done. OBJECTIVE: VITAL SIGNS: T-max 98.7, pulse 89. Telemetry shows sinus rhythm with paroxysmal atrial fibrillation; blood pressure 148/53, 148/98, 162/79; respirations 20, O2 sat 95% to 98%. Output not documented. HEENT: Head: Normocephalic, atraumatic. Examination shows pinkish pale conjunctivae. Anicteric sclerae. Positive phlegm and secretions noted in the posterior oropharynx. NECK: Questionable soft carotid bruit. CHEST: Kyphosis. LUNGS: Show positive decreased breath sound at the bases, left more than the right. Positive rhonchi in the upper lung iqbal. CARDIOVASCULAR: S1, S2, irregularly regular rhythm. Positive systolic murmur, right second intercostal space, left second intercostal space, left sternal border. ABDOMEN: Soft. Positive bowel sounds. No hepatosplenomegaly noted. No guarding. No rigidity. No rebound tenderness. GENITALIA: Female. RECTAL: Deferred. Positive sacral decubitus ulceration noted. MUSCULOSKELETAL: Overall muscle wasting and cachexia noted. Positive facial muscle wasting and cachexia noted. Examination shows body mass index of 21.5. NEUROLOGIC: The patient is arousable, but lethargic, responsive to verbal and painful stimuli. DIAGNOSTICS: 01/01/2018: WBC 12.4, hemoglobin/hematocrit 9.5 and 30.5, and platelet 108,000 manual. Potassium is 3.3, magnesium is low normal at 1.7. Blood glucose 122. Rest of the electrolytes are normal. BNP is 8120. Now total protein today has come up to 6.4 and albumin has come up to 3.6 after albumin infusions. Measles IgM is negative. Repeat blood cultures are negative. The patient received 1 unit of PRBC. Chest x-ray was reviewed, which shows volume overload, pulmonary vascular congestion, pleural effusion, left more than the right. Dextroscoliosis. IMPRESSION: 1. Severe pulmonary venous congestion and volume overload and fluid overload. 2. Severe pulmonary vascular congestion and pulmonary edema. 3. Left pleural effusion and atelectasis. 4. Severe dextroscoliosis of the spine with multilevel degenerative joint disease of the spine. 5. Severe gait dysfunction and deconditioning and bedridden status and functional quadriplegia. 6. Sacral decubitus ulcer stage III. 7. Severe deconditioning. 8. Cachexia. 9. Feeding dysfunction with severe oropharyngeal dysphagia and risk for aspiration. 10. Systemic inflammatory syndrome with possible sepsis. 11. Resolving maculopapular rash. 12. Paroxysmal atrial fibrillation. 13. Pulmonary hypertension. 14. Hypothyroidism. 15. History of hypertension, hypothyroidism, atrial fibrillation. 16. Questionable chronic obstructive pulmonary disease. 17. 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 18. Gait dysfunction. 19. Deconditioning. 20. Leukocytosis with granulocytosis. 21. Thrombocytopenia. 22. Hypokalemia. 23. Hypomagnesemia. 24. Elevated proBNP, most likely secondary to pulmonary hypertension and tricuspid regurgitation and elevated right ventricular systolic pressure of 60 mmHg. 25. Mild concentric left ventricular hypertrophy. 26. Moderately thickened aortic valve with moderate aortic regurgitation. 27. Hypovitaminosis D. 28. History of iron-deficiency normocytic anemia. 29. Elevated C-reactive protein. 30. Proteinuria, ketonuria, microscopic hematuria, pyuria, bacteriuria, funguria. 31. Andressa albicans sacral decubitus ulceration, stage II to III. 32. Feeding dysfunction. PLAN: At this time, potassium and magnesium supplementation has been ordered. We are still awaiting recommendation evaluation by the Palliative Care Department. At present, the patient's family has not decided about the patient's nutritional support status. They have not decided about getting the gastrostomy tube. Though the patient's family was advised about the patient's extreme risk of malnutrition secondary to inability to have oral diet secondary to severe oropharyngeal dysphagia and feeding dysfunction. That decision and evaluation by the Palliative Care is pending, which will determine the patient's discharge disposition also. CURRENT CONSULTANTION: 1. Cardiology. 2. Infectious Disease. 3. Orthopedics. 4. Gastroenterology. 5. Neurology. 6. Palliative Care. 7. Pulmonary. CURRENT MEDICATIONS: 1. Mucomyst nebulizer 20% 4 mL q. 6 hours. 2. Albumin 25 g x3 doses. 3. Aranesp 60 mcg weekly. 4. Aspirin 300 mg suppository daily. 5. Ativan 0.5 mg IV q.4 p.r.n. 6. Cardizem drip at 10 mg per hour. 7. Doxycycline 100 mg IV q.12. 8. Dulcolax suppository 10 mg nightly. 9. The patient is started on Exelon patch 4.6 mg daily. 10. Lasix 40 mg x1 dose. 11. The patient is on Lovenox 60 mg subq daily. 12. Magnesium and potassium supplementation ordered. 13. Protonix 40 IV daily. 14. Pulmicort nebulizer q. 12 hours. 15. Seroquel 12.5 nightly, which is ordered by Dr. Santiago. 16. Synthroid 50 mcg IV daily. 17. Tylenol 650 q.6 p.r.n. 18. Thiamine 100 mg IV daily. 19. Xopenex 0.63 mg nebulizer every 6 hours. 20. The patient is on n.p.o. diet secondary to severe oropharyngeal dysphagia. The patient has been put on aspiration precaution, head of the bed at 30 degrees, suction airway every 2 hours, HUMBERTO stockings, SCDs, decubitus care. At present, the patient's case is also referred to [employer]. Their last evaluation recommendation is the patient to return to subacute rehab versus home health services. At present as mentioned, the patient's family has not made a decision about gastrostomy tube feeding and nutritional support, although me and Dr. Hernandez had extensively explained to the patient's family about the patient's overall extremely [id number] prognosis and need for nutritional support, but the patient is living will and advanced directive, has stated no artificial feeding and support. Dictated and electronically signed, not read. Matt Villegas MD
--- NOTE | 2018-01-01 15:08 | CP.PCM.CON ---
History of Present Illness - History of Present Illness History of Present Illness: Palliative consult requested by Dr Torey Villegas Reason: Goals of care 87 year old female with history of recent hip fracture, UTI who was sent from Rehab with altered mental status, shortness of breath and macropapular rash over entire body. Labs;leukocytosis,anemia, hypokalemia, BNP 163,000. Initial chest x ray showed no active disease. CT of head no acute findings, mucosal thickening in ethmoid sinuses. Chest x ray today revealed worsening venous congestion, pleural effusions L> R, atelectasis vs pneumonia LLL PMHx: HTN, hypothyrpidosm, A Fib on Eliquis, masiodidits, COPD, hip fracture s/ p ORIF Social History: Non smoker, no alcohol or drug use. Lives with her daughter. Family History: Non contributory. Advance Care Planning: The patient has an Advanced Directive. She is DNR/DNI. Review of Systems: As per HPI, patient is altered /non verbal unable to obtain Past Patient History - Infectious Disease Hx of Infectious Diseases: None - Past Social History Smoking Status: Never Smoked - CARDIAC Hx Cardiac Disorders: Yes Hx Hypertension: Yes - PULMONARY Hx Chronic Obstructive Pulmonary Disease (COPD): Yes - NEUROLOGICAL Hx Neurological Disorder: Yes (VERTIGO) Hx Dementia: Yes (DOES NOT TAKE THE MEDICATION) - HEENT Hx HEENT Problems: Yes (wears hearing aid Left ear) - RENAL Hx Chronic Kidney Disease: No - ENDOCRINE/METABOLIC Hx Hypothyroidism: Yes - HEMATOLOGICAL/ONCOLOGICAL Hx Blood Disorders: No - INTEGUMENTARY Hx Dermatological Problems: Yes (RIGHT FOOT STASIS ULCER) - MUSCULOSKELETAL/RHEUMATOLOGICAL Hx Arthritis: Yes Hx Falls: Yes - GASTROINTESTINAL Hx Gastrointestinal Disorders: No - GENITOURINARY/GYNECOLOGICAL Hx Genitourinary Disorders: No - PSYCHIATRIC Hx Psychophysiologic Disorder: No - SURGICAL HISTORY Other/Comment: Hip Surgery 11/2017 - ANESTHESIA Hx Anesthesia Reactions: No Hx Malignant Hyperthermia: No Meds Allergies/Adverse Reactions: Allergies Allergy/AdvReac Type Severity Reaction Status Date / Time Penicillins Allergy ANAPHYLAXIS Verified 12/01/17 21:07 Sulfa (Sulfonamide Allergy ANAPHYLAXIS Verified 12/01/17 21:07 Antibiotics) - Medications Medications: Current Medications Acetaminophen (Tylenol 325mg Tab) 650 mg PO Q4 PRN PRN Reason: Pain, Mild (1-3) Acetaminophen (Tylenol 650 Mg Supp) 650 mg RC Q6H PRN PRN Reason: Temp>= 99.5 Last Admin: 12/28/17 15:01 Dose: 650 mg Acetylcysteine (Acetylcysteine 20%) 4 ml IH [id number] [facility] Last Admin: 01/01/18 13:56 Dose: 4 ml Albumin Human (Albumin Human 25% (25 Gm/100 Ml)) 25 gm IV Q8 [facility] Last Admin: 01/01/18 05:03 Dose: 25 gm Aspirin (Aspirin Supp) 300 mg RC DAILY [facility] Last Admin: 01/01/18 10:14 Dose: 300 mg Bisacodyl (Dulcolax) 10 mg RC HS [facility] Last Admin: 12/31/17 21:15 Dose: 10 mg Budesonide (Pulmicort Respules) 0.5 mg IH [id number] [facility] Last Admin: 01/01/18 07:55 Dose: 0.5 mg Darbepoetin Eduin (Aranesp) 60 mcg SC QWK [facility] Last Admin: 12/26/17 17:22 Dose: 60 mcg Enoxaparin Sodium (Lovenox) 60 mg SC DAILY [facility] PRN Reason: Protocol Last Admin: 01/01/18 10:14 Dose: 60 mg diltiaZEM IVPB 100mg in NS (Cardizem 100mg In Ns) 100 mls @ 10 mls/hr IV .Q10H [facility] PRN Reason: 10 MG/HR Last Admin: 01/01/18 04:10 Dose: 10 mls/hr Doxycycline Hyclate 100 mg/ (Sodium Chloride) 100 mls @ 100 mls/hr IVPB Q12 [facility] PRN Reason: Protocol Last Admin: 01/01/18 10:19 Dose: 100 mls/hr Potassium Chloride (Potassium Chloride 20 Meq/100 Ml) 20 meq in 100 mls @ 50 mls/hr IVPB ONCE ONE Stop: 01/01/18 15:59 Levalbuterol HCl (Xopenex) 0.63 mg IH [id number] [facility] Last Admin: 01/01/18 13:57 Dose: 0.63 mg Levalbuterol HCl (Xopenex) 0.63 mg IH Q2 PRN PRN Reason: Shortness of Breath Last Admin: 01/01/18 11:34 Dose: 0.63 mg Levothyroxine Sodium (Synthroid) 50 mcg IVP DAILY [facility] Last Admin: 01/01/18 10:13 Dose: 50 mcg Lorazepam (Ativan) 0.5 mg IVP Q8 PRN; Protocol PRN Reason: Anxiety Last Admin: 12/31/17 17:46 Dose: 0.5 mg Pantoprazole Sodium (Protonix Inj) 40 mg IVP DAILY [facility] Last Admin: 01/01/18 10:13 Dose: 40 mg Quetiapine Fumarate (Seroquel) 12.5 mg PO HS [facility] PRN Reason: Protocol Last Admin: 12/31/17 21:16 Dose: Not Given Rivastigmine (Exelon 4.6 Mg/24 Hr Patch) 1 patch TD DAILY [facility] Last Admin: 01/01/18 10:19 Dose: 1 patch Thiamine HCl (Vitamin B1 Inj) 100 mg IV DAILY [facility] Last Admin: 01/01/18 10:18 Dose: 100 mg Physical Exam - Constitutional Appears: Cachectic, Chronically Ill - Head Exam Head Exam: NORMAL INSPECTION - Eye Exam Eye Exam: Normal appearance, PERRL - ENT Exam ENT Exam: Mucous Membranes Moist, Normal Oropharynx - Neck Exam Neck exam: Positive for: Normal Inspection - Respiratory Exam Respiratory Exam: Decreased Breath Sounds, Rhonchi, Wheezes - Cardiovascular Exam Cardiovascular Exam: Tachycardia, +S1, +S2 - GI/Abdominal Exam GI & Abdominal Exam: Diminished Bowel Sounds, Soft - Extremities Exam Extremities exam: Positive for: pedal pulses present - Back Exam Back exam: NORMAL INSPECTION - Neurological Exam Neurological exam: Altered - Skin Skin Exam: Dry, Pallor - Additional Findings Additional findings: Palliative performance scale rating 20 % Results - Vital Signs Recent Vital Signs: Last Vital Signs Temp 97.7 F 01/01/18 12:00 Pulse 89 01/01/18 12:00 Resp 20 01/01/18 12:00 BP 148/87 01/01/18 12:00 Pulse Ox 98 01/01/18 06:00 - Labs Result Diagrams: 01/01/18 05:30 01/01/18 05:30 Labs: Laboratory Results - last 24 hr 12/26/17 12/27/17 01/01/18 06:30 11:42 05:30 WBC 12.4 H RBC 3.28 L Hgb 9.5 L Hct 30.5 L MCV 93.0 MCH 29.0 MCHC 31.1 RDW 17.3 H Plt Count 96 L Manual Plt Count MPV 9.9 Gran % 81.4 H Lymph % (Auto) 10.2 L [place] % (Auto) 4.7 Eos % (Auto) 2.8 Baso % (Auto) 0.9 Gran # 10.08 H Lymph # (Auto) 1.3 [place] # (Auto) 0.6 Eos # (Auto) 0.4 Baso # (Auto) 0.11 Sodium Potassium Chloride Carbon Dioxide Anion Gap BUN Creatinine Est GFR ( Amer) Est GFR (Non-Af Amer) Random Glucose Calcium Magnesium Total Bilirubin Direct Bilirubin AST ALT Alkaline Phosphatase NT-Pro-B Natriuret Pep Total Protein Albumin Globulin Albumin/Globulin Ratio Influenza Type A Ab 1:8 H Influenza Type B Ab <1:8 Rubeola (Measles) IgM <1:20 01/01/18 01/01/18 01/01/18 05:30 07:00 07:50 WBC RBC Hgb Hct MCV MCH MCHC RDW Plt Count Manual Plt Count 108 L MPV Gran % Lymph % (Auto) [place] % (Auto) Eos % (Auto) Baso % (Auto) Gran # Lymph # (Auto) [place] # (Auto) Eos # (Auto) Baso # (Auto) Sodium 147 Potassium 3.3 L Chloride 108 H Carbon Dioxide 28 Anion Gap 15 BUN 20 Creatinine 1.0 Est GFR ( Amer) > 60 Est GFR (Non-Af Amer) 53 Random Glucose 122 H Calcium 8.6 Magnesium 1.7 Total Bilirubin 0.9 Direct Bilirubin 0.7 H AST 23 ALT 25 Alkaline Phosphatase 81 NT-Pro-B Natriuret Pep 8120 H Total Protein 6.4 Albumin 3.6 Globulin 2.7 Albumin/Globulin Ratio 1.3 Influenza Type A Ab Influenza Type B Ab Rubeola (Measles) IgM Assessment & Plan - Assessment and Plan (Free Text) Assessment: 87 year old female with history of hip fracture s/p ORIF, HTN, A Fib who is admiited with sespis, altered mental status, pleural effusions, venous congestion, decreased appetite. I spoke with patients daughter,Jacquelyn in person and son who was listening in on speaker phone. Daughter recognizes the decline in her mother's health. The patient has an Advanced Directive in which she states he does Burdens of PEG explained. After much discussion family verified they do not want PEG placement. Family having difficulty accepting the gravity of her illness. Son asked if patient would benefit from temporary feeding via NG. Explained that that over all patient was doing poorly and that temporary feeding would likely not influence over all outcome. Hospice care discussed at length, services described, questions answered. Family will meet tonight to discuss goals of care and direction they wish to proceed. Psychosocial support provided. Time spent with family in goals of care and end of life discussion, 45 minutes Plan: Al reports, medications reviewed, no recommendation. Advance Care Planning Goals of care
--- NOTE | 2018-01-01 15:11 | PN ---
DATE: 01/01/2018 SUBJECTIVE: The patient is lying in bed. She appears extremely weak. She appears to have agonal respirations. She does look at me when I call her name. PHYSICAL EXAMINATION VITAL SIGNS: Reveal temperature of 97.8, blood pressure 148/53, heart rate of 89. HEENT: Reveals sclerae to be white. Oral mucosa is dry. Conjunctivae pale. NECK: Supple. CHEST: Reveals lungs to be clear. HEART: Reveals an irregularly irregular rate. ABDOMEN: Soft, nontender. EXTREMITIES: Show no edema. SKIN: The rash on her torso and extremities appear to be improving. LABORATORY DATA: Revealed white blood cell count of 12.4, hemoglobin 9.5. Chemistries reveal potassium of 3.3. BNP of 8120. IMPRESSION: 1. Oropharyngeal dysphagia. 2. Dementia. 3. Atrial fibrillation. 4. Status post rash, most likely drug-induced. Her rubella IgM is negative. 5. Systemic inflammatory response syndrome. RECOMMENDATIONS: 1. I had a discussion with the patient's power of cabinet worker, Jacquelyn, this morning regarding PEG placement. Family now wishes to abide by the patient's advanced directive of no mechanical means of nutritional administration. Her condition appears to be deteriorating as she seems to have agonal respirations. 2. Comfort care. 3. We will request palliative care consultation. Izaiah Hernandez MD
--- NOTE | 2018-01-01 17:01 | PN ---
DATE: 01/01/2018 CARDIOLOGY FOLLOWUP SUBJECTIVE: The patient remains lethargic in bed. PHYSICAL EXAMINATION VITAL SIGNS: Blood pressure is 148/87, the heart rates in the 80s, normal sinus rhythm with frequent APCs. NECK: Negative JVD. LUNGS: Decreased breath sounds. HEART: Reveals S1 and S2. EXTREMITIES: Without edema. LABORATORY DATA: Hemoglobin is 9.5. Chemistries: BUN and creatinine are unremarkable. Potassium is 3.3. IMPRESSION: 1. Atrial fibrillation which is now converted to normal sinus rhythm with frequent atrial premature complexes. 2. Marked dementia. 3. Pulmonary hypertension. 4. Chronic obstructive pulmonary disease. PLAN: Given these findings, the patient will need to stay on Cardizem and we will change to p.o. once she is able to take the medication through the GI tract. Carmine Bailey MD
--- NOTE | 2018-01-01 21:53 | PN ---
DATE: SUBJECTIVE: The patient seen earlier this morning in 263, bed 1. No fevers and no chills. PHYSICAL EXAMINATION: VITAL SIGNS: On exam, temperature is 97, blood pressure IS 140/80, respiratory 20, heart rate of 89. HEENT: Unremarkable. NECK: Supple. LUNGS: Have decreased breath sounds. HEART: Normal S1 and S2. ABDOMEN: Soft, nontender. LABORATORY DATA: Reveals a white count of 12,400, hemoglobin of 9 and platelets of 96. Chemistries reveals a BUN of 20, creatinine of 1.0. Urinalysis is noted, and serology is noted. Influenza A is positive . ASSESSMENT AND PLAN: This is an 87-year-old female seen earlier this morning in 263, bed 1, with systemic inflammatory response syndrome and sepsis, respiratory tract infection, and maculopapular rash which has resolved, most likely a drug reaction, and day #7 of doxycycline, we will discontinue the doxycycline. No further antibiotics at this point. Dr. Santiago's consultation is reviewed. Isabel Peres's consultation is noted and appreciated. We will follow the patient off of antibiotics. Overall, patient has a high risk for developing nosocomial infections and we will follow the WBCs also. Spike Danielson MD
[2018-01-02] MEDS: Acetylcysteine 20% Inhal Soln (4ml) IH SCH ×4 (02:01→20:53)
[2018-01-02] MEDS: Levalbuterol 0.63 MG/3 ML Inhal Soln UD IH SCH ×3 (02:01→13:39)
[2018-01-02 06:53] LABS: BASO % 0.7 % (0.0-3.0); HEMOGLOBIN 10.3 g/dL (12.0-16.0); LYMPH # 1.3 (1.2-3.4); LYMPH % 9.6 % (22.0-35.0); MEAN CELL VOLUME 93.2 fl (80.0-105.0); MEAN CORPUSCULAR HGB CONC 31.1 g/dl (31.0-37.0); MEAN PLATELET VOLUME 9.8 fl (7.0-11.0); MONO # 0.9 (0.1-0.6); MONO % 6.9 % (1.0-6.0); PLATELET COUNT 84 10^3/uL (120.0-450.0); RBC 3.55 10^6/uL (3.5-6.1); RED CELL DISTRIBUTION WIDTH 17.1 % (11.5-14.5); WHITE BLOOD COUNT 13.4 10^3/ul (4.5-11.0)
[2018-01-02 07:19] LABS: ALBUMIN 2.9 g/dL (3.0-4.8); ALT/SGPT 24 U/L (7-56); AST/SGOT 20 U/L (14-36); BILIRUBIN,DIRECT 0.6 mg/dL (0.0-0.4); BLOOD UREA NITROGEN 18 mg/dL (7-21); CALCIUM 8.4 mg/dL (8.4-10.5); GFR AFRICAN-AMERICAN > 60; GFR NON-AFRICAN AMERICAN 53
[2018-01-02] MEDS: Budesonide 0.5 mg/2 ml Inhal Susp UD IH SCH ×2 (07:44→20:53)
[2018-01-02 08:27] LABS: PLATELET COUNT MANUAL 107 K/mm3 (120-450)
--- NOTE | 2018-01-02 08:31 | PN ---
DATE: 01/02/2018 PULMONARY NOTE SUBJECTIVE: The patient is definitely more awake and alert - compared to yesterday. She is also less short of breath compared to yesterday. PHYSICAL EXAMINATION VITAL SIGNS: Temperature is 98.6, pulse is 79, respirations 20, blood pressure 152/72. Oxygen saturation on nasal cannula is 97%-98%. HEENT: Normocephalic, atraumatic. No JVD. CARDIOVASCULAR: Systolic ejection murmur at the lower left sternal border. No S3 gallop. LUNGS: Decreased breath sounds at the bases. Less rhonchi - compared to yesterday. No wheezing. EXTREMITIES: No clubbing, cyanosis or edema. Calves are nontender to palpation. GI: Abdomen is soft, nontender and nondistended. Bowel sounds are positive. SKIN: Less rash is noted. NEUROLOGIC: Limited at the present time. PERTINENT LABORATORY DATA: Chest x-ray was done yesterday and reviewed. There are patchy infiltrates noted in the right lower lobe and left perihilar region. There is also underlying severe pulmonary venous congestion. IMPRESSION: 1. Sepsis syndrome. 2. Chronic obstructive pulmonary disease. 3. Probable aspiration pneumonia. 4. Atrial fibrillation. 5. Anemia. 6. Renal insufficiency. PLAN: The patient appears more awake and alert - compared to yesterday. She is also less short of breath - compared to yesterday. She does remain very weak appearing. I did discuss the case with the night nurse at length. The night nurse stated that the patient had a better night - compared to the night before. On physical exam, there is certainly less bronchospasm noted. In addition, the oxygen saturation on nasal cannula is now 97%-98%. I will continue the current nebulizer treatments, inhaled steroids, and aspiration precautions. I did note yesterday's chest x-ray--above. The patient is now off antibiotic therapy - as per Infectious Disease. I will discuss the case with Dr. Danielson this morning. There are no temperatures noted. However, there is a mild leukocytosis. Input by Cardiology (Dr. Bailey) is also noted. Intravenous fluids have been stopped. The patient was also given a one-time dose of Lasix yesterday - agree. Clinical status of the patient is certainly improved - compared to yesterday morning. However, the overall status/prognosis for this patient remains poor. Input by Isabel Peres (Palliative Care) is noted. I will also discuss the above with the attending physician. Jj De Souza MD MTDJuvenal
[2018-01-02 08:59] LABS: EOSINOPHIL 11 % (0.0-3.0); LYMPHOCYTE 9 % (22.0-35.0); MONOCYTE 7 % (1.0-6.0); MYELOCYTE 2 %; NEUTROPHIL 71 % (50.0-70.0); PLATELET ESTIMATE LOW (NORMAL)
[2018-01-02] MEDS ORDERED: Vancomycin 2 GM in Sodium Chloride 0.9% 500 ML IVPB ONE (10:13)
[2018-01-02] MEDS: Levothyroxine 100 mcg (0.1 mg) Inj IVP SCH (11:30)
[2018-01-02] MEDS: Thiamine 100 mg/ml Inj IV SCH (11:31)
[2018-01-02] MEDS: Enoxaparin 60 mg Syringe SC SCH (11:32)
[2018-01-02] MEDS: Darbepoetin Alfa 60 mcg/ml Inj SC SCH (11:49)
[2018-01-02] MEDS: Aztreonam 2 Gm in NS 100mL 100 ML IVPB SCH ×2 (11:50→21:32)
--- NOTE | 2018-01-02 12:17 | CP.PCM.PN ---
Subjective - Date & Time of Evaluation Date of Evaluation: 01/02/18 Time of Evaluation: 10:00 - Subjective Subjective: The patient is awake,more alert.Responding to simple questions, able to follow command Objective - Vital Signs/Intake and Output Vital Signs (last 24 hours): Temp Pulse Resp BP Pulse Ox 98.6 F 79 20 152/72 H 97 01/02/18 06:00 01/02/18 06:00 01/02/18 06:00 01/02/18 06:00 01/02/18 06:00 Intake and Output: 01/02/18 01/02/18 06:59 18:59 Intake Total 390 Balance 390 - Medications Medications: Current Medications Acetaminophen (Tylenol 325mg Tab) 650 mg PO Q4 PRN PRN Reason: Pain, Mild (1-3) Acetaminophen (Tylenol 650 Mg Supp) 650 mg RC Q6H PRN PRN Reason: Temp>= 99.5 Last Admin: 01/02/18 00:25 Dose: 650 mg Acetylcysteine (Acetylcysteine 20%) 4 ml IH [id number] [facility] Last Admin: 01/02/18 07:44 Dose: 4 ml Aspirin (Aspirin Supp) 300 mg RC DAILY [facility] Last Admin: 01/02/18 11:31 Dose: 300 mg Bisacodyl (Dulcolax) 10 mg RC HS [facility] Last Admin: 01/01/18 21:54 Dose: 10 mg Budesonide (Pulmicort Respules) 0.5 mg IH [id number] [facility] Last Admin: 01/02/18 07:44 Dose: 0.5 mg Darbepoetin Eduin (Aranesp) 60 mcg SC QWK [facility] Last Admin: 01/02/18 11:49 Dose: 60 mcg Enoxaparin Sodium (Lovenox) 60 mg SC DAILY [facility] PRN Reason: Protocol Last Admin: 01/02/18 11:32 Dose: 60 mg diltiaZEM IVPB 100mg in NS (Cardizem 100mg In Ns) 100 mls @ 10 mls/hr IV .Q10H [facility] PRN Reason: 10 MG/HR Last Admin: 01/01/18 22:54 Dose: 10 mls/hr Aztreonam (Azactam 2 Gm) 100 mls @ 100 mls/hr IVPB Q8 [facility] PRN Reason: Protocol Stop: 01/09/18 10:16 Last Admin: 01/02/18 11:50 Dose: 100 mls/hr Vancomycin HCl 2 gm/ Sodium (Chloride) 500 mls @ 170 mls/hr IVPB ONCE ONE PRN Reason: Protocol Stop: 01/02/18 13:09 Last Admin: 01/02/18 11:37 Dose: 170 mls/hr Metronidazole (Flagyl) 500 mg in 100 mls @ 100 mls/hr IVPB Q8 [facility] PRN Reason: Protocol Levalbuterol HCl (Xopenex) 0.63 mg IH [id number] [facility] Last Admin: 01/02/18 07:44 Dose: 0.63 mg Levalbuterol HCl (Xopenex) 0.63 mg IH Q2 PRN PRN Reason: Shortness of Breath Last Admin: 01/01/18 11:34 Dose: 0.63 mg Levothyroxine Sodium (Synthroid) 50 mcg IVP DAILY [facility] Last Admin: 01/02/18 11:30 Dose: 50 mcg Lorazepam (Ativan) 0.5 mg IVP Q8 PRN; Protocol PRN Reason: Anxiety Last Admin: 12/31/17 17:46 Dose: 0.5 mg Pantoprazole Sodium (Protonix Inj) 40 mg IVP DAILY [facility] Last Admin: 01/02/18 11:30 Dose: 40 mg Quetiapine Fumarate (Seroquel) 12.5 mg PO HS [facility] PRN Reason: Protocol Last Admin: 01/01/18 21:54 Dose: Not Given Rivastigmine (Exelon 4.6 Mg/24 Hr Patch) 1 patch TD DAILY [facility] Last Admin: 01/02/18 11:32 Dose: 1 patch Thiamine HCl (Vitamin B1 Inj) 100 mg IV DAILY [facility] Last Admin: 01/02/18 11:31 Dose: 100 mg - Labs Labs: 01/02/18 06:49 01/02/18 06:49 PT 18.3 SECONDS (9.4-12.5) H 12/25/17 19:50 INR 1.59 (0.93-1.08) H 12/25/17 19:50 APTT 33.5 Seconds (25.1-36.5) 12/25/17 19:50 - Constitutional Appears: Cachectic, Chronically Ill - Eye Exam Eye Exam: Normal appearance, PERRL - ENT Exam ENT Exam: Mucous Membranes Moist - Neck Exam Neck Exam: Normal Inspection - Respiratory Exam Respiratory Exam: Decreased Breath Sounds, Rhonchi - Cardiovascular Exam Cardiovascular Exam: Irregular Rhythm, +S1 - GI/Abdominal Exam GI & Abdominal Exam: Soft, Hypoactive Bowel Sounds - Extremities Exam Extremities Exam: Normal Capillary Refill, Pedal Edema - Skin Skin Exam: Dry, Pallor Assessment and Plan - Assessment and Plan (Free Text) Assessment: 87 year old female s/p hip fracture and ORIF, UTI, A FIB who is admitted with sepsis, pleural effusions, altered mental status, respiratory insufficiency, dysphagia. The patient is more responsive today. Less dyspnea. Able to follow simple command. Patients daughters at bedside. Daughters are encouraged by patients responsiveness today. Family wants to hold off on hospice care. Family wants to continue with current medical treatment plan. Patient remains DNR/DNI. Explained that patient was not out of the frank and that although she is showing small signs of improvement that she is likely not going to return to baseline functional status. Explained that she may not be strong enough for SIDNEY but that would be determined prior to discharge. Family may still consider transitioning to hospice if patients condition does not improve significantly. Time spent with family in goals of care and hospice discussion, 30 minutes Psychosocial support Plan: Repeat speech and swallow exam Continue current medical treatment plan Goals of care
--- NOTE | 2018-01-02 12:38 | PN ---
DATE: SUBJECTIVE: The patient is seen in room 263, bed 1. The patient was admitted with respiratory infection, systemic inflammatory response syndrome, pulmonary edema, and atrial fibrillation. The patient had been in rehab for fracture of the hip and she was transferred from the rehab with this acute respiratory condition. The patient is improved somewhat during her hospital stay in the [facility] in [place], but her condition has been not improving to the extent that the patient is ready to be discharged from the hospital. PHYSICAL EXAMINATION: GENERAL: She is awake, but unresponsive to suggestions and orders. The patient is not able to swallow. VITAL SIGNS: The patient's vital signs noted today: Pulse is 79, blood pressure 152/72, respirations are 20, O2 sat 97% on 2 L of oxygen. The patient's temperature is 98.6. LUNGS: There is evidence of rhonchi and crepitations scattered. HEART: Atrial fibrillation with moderate response. ABDOMEN: Soft. No tenderness. CENTRAL NERVOUS SYSTEM: She is bedridden and appears to be weak and unable to move her legs on demand. The patient's family is concerned about her condition. She is DNR, but they might want to put the patient on hospice. They are in discussion about this. Currently, we will continue management as the patient has been treated with all medical modalities and oxygen. When the family makes a decision to place the patient on hospice, we will do so. Tonio Martinez MD [facility]
[2018-01-02] MEDS: metroNIDAZOLE IV 500 mg/100 ml 500 MG/100 ML BAG IVPB SCH ×2 (14:44→21:32)
--- NOTE | 2018-01-02 15:35 | PN ---
DATE: 01/02/2018 SUBJECTIVE: The patient is lying in bed. She is more awake, alert, responds to simple commands and is less dyspneic at rest. PHYSICAL EXAMINATION VITAL SIGNS: Reveal temperature of 98.6, blood pressure 152/72, heart rate of 79. HEENT: Reveals sclerae to be white. Conjunctivae pale. Oral mucosa is dry. NECK: Supple. CHEST: Reveals decreased breath sounds at the bases. HEART: Reveals an irregularly irregular rate. ABDOMEN: Soft, nontender. EXTREMITIES: Show anasarca with 1+ pedal edema of her arms and her legs. LABORATORY DATA: Reveals hemoglobin 10.3, white blood cell count 13.4, platelet count of 84,000. Albumin is 2.9, potassium 3.8, BUN 18, creatinine 1. IMPRESSION: 1. Oropharyngeal dysphagia. 2. Atrial fibrillation. 3. Volume overload versus possible lower lobe pneumonia. 4. Dementia. RECOMMENDATIONS: 1. No PEG placement as per the patient's advance directive and family wishes. 2. We will swallowing evaluation with a goal of having the patient take liquid or pureed diet. The patient's long-term prognosis is extremely poor. Continue comfort measures. Izaiah Hernandez MD
--- NOTE | 2018-01-02 15:35 | CP.PCM.PN ---
Subjective - Date & Time of Evaluation Date of Evaluation: 01/02/18 Time of Evaluation: 10:00 - Subjective Subjective: Still with cough, no fevers, no fevers overnight, no diarrhea. Objective - Vital Signs/Intake and Output Vital Signs (last 24 hours): Temp Pulse Resp BP Pulse Ox 98.6 F 79 20 152/72 H 97 01/02/18 06:00 01/02/18 06:00 01/02/18 06:00 01/02/18 06:00 01/02/18 06:00 Intake and Output: 01/02/18 01/02/18 06:59 18:59 Intake Total 390 Balance 390 - Medications Medications: Current Medications Acetaminophen (Tylenol 325mg Tab) 650 mg PO Q4 PRN PRN Reason: Pain, Mild (1-3) Acetaminophen (Tylenol 650 Mg Supp) 650 mg RC Q6H PRN PRN Reason: Temp>= 99.5 Last Admin: 01/02/18 00:25 Dose: 650 mg Acetylcysteine (Acetylcysteine 20%) 4 ml IH [id number] [facility] Last Admin: 01/02/18 07:44 Dose: 4 ml Aspirin (Aspirin Supp) 300 mg RC DAILY [facility] Last Admin: 01/01/18 10:14 Dose: 300 mg Bisacodyl (Dulcolax) 10 mg RC HS [facility] Last Admin: 01/01/18 21:54 Dose: 10 mg Budesonide (Pulmicort Respules) 0.5 mg IH [id number] [facility] Last Admin: 01/02/18 07:44 Dose: 0.5 mg Darbepoetin Eduin (Aranesp) 60 mcg SC QWK [facility] Last Admin: 12/26/17 17:22 Dose: 60 mcg Enoxaparin Sodium (Lovenox) 60 mg SC DAILY [facility] PRN Reason: Protocol Last Admin: 01/01/18 10:14 Dose: 60 mg diltiaZEM IVPB 100mg in NS (Cardizem 100mg In Ns) 100 mls @ 10 mls/hr IV .Q10H [facility] PRN Reason: 10 MG/HR Last Admin: 01/01/18 22:54 Dose: 10 mls/hr Aztreonam (Azactam 2 Gm) 100 mls @ 100 mls/hr IVPB Q8 [facility] PRN Reason: Protocol Stop: 01/09/18 10:16 Vancomycin HCl 2 gm/ Sodium (Chloride) 500 mls @ 170 mls/hr IVPB ONCE ONE PRN Reason: Protocol Stop: 01/02/18 13:09 Levalbuterol HCl (Xopenex) 0.63 mg IH [id number] [facility] Last Admin: 01/02/18 07:44 Dose: 0.63 mg Levalbuterol HCl (Xopenex) 0.63 mg IH Q2 PRN PRN Reason: Shortness of Breath Last Admin: 01/01/18 11:34 Dose: 0.63 mg Levothyroxine Sodium (Synthroid) 50 mcg IVP DAILY [facility] Last Admin: 01/01/18 10:13 Dose: 50 mcg Lorazepam (Ativan) 0.5 mg IVP Q8 PRN; Protocol PRN Reason: Anxiety Last Admin: 12/31/17 17:46 Dose: 0.5 mg Pantoprazole Sodium (Protonix Inj) 40 mg IVP DAILY [facility] Last Admin: 01/01/18 10:13 Dose: 40 mg Quetiapine Fumarate (Seroquel) 12.5 mg PO HS [facility] PRN Reason: Protocol Last Admin: 01/01/18 21:54 Dose: Not Given Rivastigmine (Exelon 4.6 Mg/24 Hr Patch) 1 patch TD DAILY [facility] Last Admin: 01/01/18 10:19 Dose: 1 patch Thiamine HCl (Vitamin B1 Inj) 100 mg IV DAILY [facility] Last Admin: 01/01/18 10:18 Dose: 100 mg - Labs Labs: 01/02/18 06:49 01/02/18 06:49 PT 18.3 SECONDS (9.4-12.5) H 12/25/17 19:50 INR 1.59 (0.93-1.08) H 12/25/17 19:50 APTT 33.5 Seconds (25.1-36.5) 12/25/17 19:50 - Constitutional Appears: Chronically Ill - Head Exam Head Exam: NORMAL INSPECTION - ENT Exam ENT Exam: Mucous Membranes Moist - Neck Exam Neck Exam: absent: Meningismus - Respiratory Exam Respiratory Exam: Decreased Breath Sounds - Cardiovascular Exam Cardiovascular Exam: +S1, +S2 - GI/Abdominal Exam GI & Abdominal Exam: Soft. absent: Tenderness Assessment and Plan - Assessment and Plan (Free Text) Plan: Assessment systemic inflammatory response syndrome, consider sepsis from new onset left lower lobe HCAP/ aspiration pneumonia maculopapular rash, consider drug rash history of right sided otomastoiditis left hip fracture S/P surgery paroxysmal atrial fibrillation HTN hypothyroidism arthritis Plan started with a dose of IV Vanco, Azactam and Flagyl pending repeat blood, sputum cx, PCT; reviewed new CXR which is showing airspace disease in the left lower lobe noted Dr. De Souza's note will monitor clinically
--- NOTE | 2018-01-02 15:37 | PN ---
DATE: 01/02/2018 SUBJECTIVE: The patient remains lethargic. PHYSICAL EXAMINATION: VITAL SIGNS: Blood pressure is 152/72, the heart rate is in the 80s. NECK: Negative JVD. LUNGS: With decreased breath sounds. HEART: S1, S2. EXTREMITIES: Without edema. LABORATORY DATA: Hemoglobin is 10.3. Chemistries, BUN and creatinine are unremarkable. IMPRESSION: 1. Atrial fibrillation with heart rate controlled with IV Cardizem. 2. Dementia. 3. Pulmonary hypertension. 4. Chronic obstructive pulmonary disease. PLAN: Given these findings, once the patient is able to take something by the GI tract, we will change the Cardizem feeding tube or NG. The patient's prognosis is poor. Carmine Bailey MD
[2018-01-02] MEDS ORDERED: Metoprolol 1 mg/ml Inj IVP PRN (17:17)
[2018-01-02] MEDS: Levalbuterol 0.63 MG/3 ML Inhal Soln UD IH PRN (20:53)
[2018-01-03] MEDS: Levalbuterol 0.63 MG/3 ML Inhal Soln UD IH SCH ×4 (02:54→19:10)
[2018-01-03] MEDS: Acetylcysteine 20% Inhal Soln (4ml) IH SCH ×4 (02:54→19:12)
[2018-01-03] MEDS: metroNIDAZOLE IV 500 mg/100 ml 500 MG/100 ML BAG IVPB SCH ×3 (05:47→23:13)
[2018-01-03] MEDS: Aztreonam 2 Gm in NS 100mL 100 ML IVPB SCH ×3 (05:47→21:37)
[2018-01-03 07:31] LABS: BASO # 0.24 K/mm3 (0.0-2.0); BASO % 1.2 % (0.0-3.0); EOS # 1.9 (0.0-0.7); EOS % 9.7 % (1.5-5.0); GRAN # 14.62 (1.4-6.5); GRAN % 75.5 % (50.0-68.0); LYMPH # 1.6 (1.2-3.4); LYMPH % 8.1 % (22.0-35.0); MEAN CELL VOLUME 95.2 fl (80.0-105.0); MEAN CORPUSCULAR HGB CONC 29.4 g/dl (31.0-37.0); MEAN PLATELET VOLUME 10.3 fl (7.0-11.0); MONO # 1.1 (0.1-0.6); MONO % 5.5 % (1.0-6.0); RBC 3.57 10^6/uL (3.5-6.1); RED CELL DISTRIBUTION WIDTH 17.1 % (11.5-14.5); WHITE BLOOD COUNT 19.4 10^3/ul (4.5-11.0)
[2018-01-03] MEDS: Budesonide 0.5 mg/2 ml Inhal Susp UD IH SCH ×2 (07:55→19:10)
[2018-01-03 08:11] LABS: ALBUMIN 2.8 g/dL (3.0-4.8); BILIRUBIN,DIRECT 0.6 mg/dL (0.0-0.4); CALCIUM 8.4 mg/dL (8.4-10.5)
--- NOTE | 2018-01-03 08:17 | CP.PCM.PN ---
Subjective - Date & Time of Evaluation Date of Evaluation: 01/03/18 Time of Evaluation: 07:45 - Subjective Subjective: (covering for Dr. Villegas) Patient is seen this morning. She opens her eyes but is not answering questions. Objective - Vital Signs/Intake and Output Vital Signs (last 24 hours): Temp Pulse Resp BP Pulse Ox 98 F 88 18 144/61 98 01/03/18 00:01 01/03/18 00:01 01/03/18 00:01 01/03/18 00:01 01/03/18 00:01 Intake and Output: 01/03/18 01/03/18 06:59 18:59 Intake Total 0 Output Total 0 Balance 0 - Medications Medications: Current Medications Acetaminophen (Tylenol 325mg Tab) 650 mg PO Q4 PRN PRN Reason: Pain, Mild (1-3) Acetaminophen (Tylenol 650 Mg Supp) 650 mg RC Q6H PRN PRN Reason: Temp>= 99.5 Last Admin: 01/02/18 11:55 Dose: 650 mg Acetylcysteine (Acetylcysteine 20%) 4 ml IH [id number] [facility] Last Admin: 01/03/18 07:55 Dose: 4 ml Aspirin (Aspirin Supp) 300 mg RC DAILY [facility] Last Admin: 01/02/18 11:31 Dose: 300 mg Bisacodyl (Dulcolax) 10 mg RC HS [facility] Last Admin: 01/02/18 21:33 Dose: 10 mg Budesonide (Pulmicort Respules) 0.5 mg IH [id number] [facility] Last Admin: 01/03/18 07:55 Dose: 0.5 mg Darbepoetin Eduin (Aranesp) 60 mcg SC QWK [facility] Last Admin: 01/02/18 11:49 Dose: 60 mcg Enoxaparin Sodium (Lovenox) 60 mg SC DAILY [facility] PRN Reason: Protocol Last Admin: 01/02/18 11:32 Dose: 60 mg diltiaZEM IVPB 100mg in NS (Cardizem 100mg In Ns) 100 mls @ 10 mls/hr IV .Q10H [facility] PRN Reason: 10 MG/HR Last Admin: 01/01/18 22:54 Dose: 10 mls/hr Aztreonam (Azactam 2 Gm) 100 mls @ 100 mls/hr IVPB Q8 [facility] PRN Reason: Protocol Stop: 01/09/18 10:16 Last Admin: 01/03/18 05:47 Dose: 100 mls/hr Metronidazole (Flagyl) 500 mg in 100 mls @ 100 mls/hr IVPB Q8 [facility] PRN Reason: Protocol Last Admin: 01/03/18 05:47 Dose: 100 mls/hr Levalbuterol HCl (Xopenex) 0.63 mg IH [id number] [facility] Last Admin: 01/03/18 07:55 Dose: 0.63 mg Levalbuterol HCl (Xopenex) 0.63 mg IH Q2 PRN PRN Reason: Shortness of Breath Last Admin: 01/02/18 20:53 Dose: 0.63 mg Levothyroxine Sodium (Synthroid) 50 mcg IVP DAILY [facility] Last Admin: 01/02/18 11:30 Dose: 50 mcg Lorazepam (Ativan) 0.5 mg IVP Q8 PRN; Protocol PRN Reason: Anxiety Last Admin: 01/02/18 12:17 Dose: 0.5 mg Metoprolol Tartrate (Lopressor) 5 mg IVP Q6 PRN PRN Reason: Systolic Blood Pressure Pantoprazole Sodium (Protonix Inj) 40 mg IVP DAILY [facility] Last Admin: 01/02/18 11:30 Dose: 40 mg Quetiapine Fumarate (Seroquel) 12.5 mg PO HS [facility] PRN Reason: Protocol Last Admin: 01/02/18 21:33 Dose: Not Given Rivastigmine (Exelon 4.6 Mg/24 Hr Patch) 1 patch TD DAILY [facility] Last Admin: 01/02/18 11:32 Dose: 1 patch Thiamine HCl (Vitamin B1 Inj) 100 mg IV DAILY [facility] Last Admin: 01/02/18 11:31 Dose: 100 mg - Labs Labs: 01/03/18 07:00 01/03/18 07:00 PT 18.3 SECONDS (9.4-12.5) H 12/25/17 19:50 INR 1.59 (0.93-1.08) H 12/25/17 19:50 APTT 33.5 Seconds (25.1-36.5) 12/25/17 19:50 - Head Exam Head Exam: ATRAUMATIC, NORMOCEPHALIC - Respiratory Exam Respiratory Exam: Decreased Breath Sounds, NORMAL BREATHING PATTERN - Cardiovascular Exam Cardiovascular Exam: +S1, +S2 - GI/Abdominal Exam GI & Abdominal Exam: Soft, Normal Bowel Sounds. absent: Tenderness - Extremities Exam Additional comments: BL SCDs - Neurological Exam Neurological Exam: Awake Assessment and Plan - Assessment and Plan (Free Text) Assessment: Hypernatremia Hypokalemia SIRS AFib HTN history of left femur fracture Dysphagia Plan: Patient is seen this morning in room 263 bed 1. She was talking yesterday, but this morning she is not answering questions. She failed 3rd swallowing evaluation yesterday. WBC count is rising. continue Azactam as per infectious disease. family has declined PEG tube and are considering hospice. Sodium is elevated and potassium is low. Will start D5W with potassium at 60ml/hr. Repeat chemistry in AM.
[2018-01-03] MEDS: Potassium Chl 40mEq & D5W 1,000 ML IV SCH (09:33)
[2018-01-03] MEDS: Thiamine 100 mg/ml Inj IV SCH (09:39)
[2018-01-03] MEDS: Levothyroxine 100 mcg (0.1 mg) Inj IVP SCH (09:40)
[2018-01-03] MEDS: Enoxaparin 60 mg Syringe SC SCH (09:46)
--- NOTE | 2018-01-03 12:50 | PN ---
DATE: 01/03/2018 SUBJECTIVE: The patient is lying in bed. She appears extremely weak. She is awake, alert. She had a repeat swallowing evaluation, which shows severe oropharyngeal dysphagia with high risk for aspiration and n.p.o. has been recommended. PHYSICAL EXAMINATION: VITAL SIGNS: Reveal temperature of 98, blood pressure 144/61, heart rate of 88. HEENT: Reveals sclerae to be white. Her lips are chapped. Oral mucosa is dry. NECK: Supple. CHEST: Revealed distant breath sounds. HEART: Reveals an irregular rate. ABDOMEN: Soft, nontender. EXTREMITIES: Reveal an improving maculopapular rash with anasarca and 1+ edema of her arms and legs. LABORATORY DATA: Reveals white blood cell count up to 19.4, hemoglobin 10. BUN 23, creatinine 1.1, sodium 149, potassium of 3.4. IMPRESSION: 1. Severe oropharyngeal dysphagia with risk for aspiration. 2. Worsening dementia. 3. Hypernatremia with hypokalemia. 4. Systemic inflammatory response syndrome with leukocytosis. The patient's prognosis is extremely poor. RECOMMENDATIONS: 1. Continue comfort measures. The patient may need palliative care. 2. No PEG placement as per the patient's advance directive. 3. I would continue to give the patient aggressive oral care and wet her tongue and lips with a moist gauze pad. Izaiah Hernandez MD
--- NOTE | 2018-01-03 13:19 | PN ---
DATE: 01/03/2018 SUBJECTIVE: The patient is in bed, in no acute distress, nontoxic. PHYSICAL EXAMINATION: VITAL SIGNS: Temperature is 98, blood pressure is 150/60, respiratory rate of 18. HEENT: Examination of HEENT is unremarkable. NECK: Supple. LUNGS: Have decreased breath sounds. HEART: Normal S1 and S2. ABDOMEN: Soft. LABORATORY DATA: Laboratory examination reveals a white count of 19,000, hemoglobin of 10, platelets of 113. BUN of 23, creatinine of 1.1. Procalcitonin 0.35. Blood cultures are negative. ASSESSMENT AND PLAN: An 87-year-old female who was seen early this morning, overall in poor condition with sepsis with healthcare-associated left lower lobe pneumonia with a normal procalcitonin and aspiration pneumonia. Maculopapular rash is resolved, probable drug reaction, on vancomycin, Azactam and Flagyl. Case was discussed with Dr. De Souza yesterday. Overall prognosis is quite poor. We will treat with short course of antibiotics. Spike Danielson MD
--- NOTE | 2018-01-03 13:58 | PN ---
DATE: 01/03/2018 PULMONARY PROGRESS NOTE SUBJECTIVE: The patient is seen and examined at bedside. She is not in respiratory distress. She appears comfortable. PHYSICAL EXAMINATION VITAL SIGNS: Her temperature is 98, pulse 88, respirations 20, pulse oximetry is 98% on nasal cannula. HEAD, EARS, NOSE AND THROAT: Within normal limits. NECK: Supple with no jugular vein distentions. CHEST: Symmetrical. CARDIOVASCULAR: S1 and S2. No S3. Irregular. A 2/6 systolic ejection murmur. PULMONARY: Diminished breath sounds at both bases. Few rhonchi. No wheezing. EXTREMITIES: No clubbing, cyanosis or edema. GASTROINTESTINAL: Soft and nontender. No organomegaly. SKIN: No rashes noted. NEUROLOGIC: Limited at the present time. LABORATORY DATA: I evaluated today's laboratory data. Her serum sodium is elevated at 149, potassium is reduced at 3.4, chloride is 111, elevated. Her total protein is reduced at 5.7 and albumin reduced [place] 2.8[place] [address]. Her hemoglobin is reduced at 10 and there is a shift to the left. Additional data is reviewed of yesterday is chest x-ray with patchy infiltrates in the right more than the left lower lung iqbal. ASSESSMENT: 1. Chronic obstructive pulmonary disease, improving. 2. Aspiration pneumonia, on antibiotics. 3. Atrial fibrillation. 4. Sepsis syndrome. PLAN: The patient still appears weak. Her white count is still markedly elevated at 19,000. Pt appears improved with less respiratory difficulty. Dr. Danielson is administering her antibiotics. Cardiology, Dr. Bailey is involved as well. We will continue with current pulmonary intervention. Corky Jiménez MD [facility]
[2018-01-03] MEDS: diltiaZEM IVPB 100mg in NS 100 ML IV SCH (16:19)
[2018-01-04] MEDS: Acetylcysteine 20% Inhal Soln (4ml) IH SCH ×4 (01:18→20:27)
[2018-01-04] MEDS: Levalbuterol 0.63 MG/3 ML Inhal Soln UD IH SCH ×5 (01:24→20:27)
[2018-01-04] MEDS: diltiaZEM IVPB 100mg in NS 100 ML IV SCH (03:29)
[2018-01-04] MEDS: Aztreonam 2 Gm in NS 100mL 100 ML IVPB SCH ×3 (05:51→22:10)
[2018-01-04] MEDS: metroNIDAZOLE IV 500 mg/100 ml 500 MG/100 ML BAG IVPB SCH ×3 (06:55→22:10)
[2018-01-04 07:14] LABS: BASO # 0.11 K/mm3 (0.0-2.0); BASO % 0.6 % (0.0-3.0); EOS # 2.9 (0.0-0.7); EOS % 17.3 % (1.5-5.0); GRAN # 11.57 (1.4-6.5); GRAN % 68.1 % (50.0-68.0); HEMOGLOBIN 9.9 g/dL (12.0-16.0); LYMPH # 1.4 (1.2-3.4); LYMPH % 8.1 % (22.0-35.0); MEAN CELL VOLUME 94.8 fl (80.0-105.0); MEAN CORPUSCULAR HEMOGLOBIN 28.6 pg (25.0-35.0); MEAN CORPUSCULAR HGB CONC 30.2 g/dl (31.0-37.0); MEAN PLATELET VOLUME 9.7 fl (7.0-11.0); MONO % 5.9 % (1.0-6.0); RBC 3.46 10^6/uL (3.5-6.1); RED CELL DISTRIBUTION WIDTH 17.5 % (11.5-14.5)
[2018-01-04] MEDS: Budesonide 0.5 mg/2 ml Inhal Susp UD IH SCH ×2 (07:37→20:27)
[2018-01-04 07:45] LABS: ALB/GLOB RATIO 0.9 (1.1-1.8); ALBUMIN 2.4 g/dL (3.0-4.8); BILIRUBIN,DIRECT 0.5 mg/dL (0.0-0.4); CALCIUM 8.4 mg/dL (8.4-10.5)
[2018-01-04] MEDS ORDERED: Magnesium Sulfate 1 gm in D5W 1 GM/100 ML BAG IVPB ONE (08:31)
--- NOTE | 2018-01-04 08:31 | CP.PCM.PN ---
Subjective - Date & Time of Evaluation Date of Evaluation: 01/04/18 Time of Evaluation: 07:30 - Subjective Subjective: (covering for Dr. Villegas) Patient is seen this morning in room 263 bed 1. She is more awake than yesterday and is talking a little. Objective - Vital Signs/Intake and Output Vital Signs (last 24 hours): Temp Pulse Resp BP Pulse Ox 97.9 F 90 19 143/66 99 01/04/18 06:00 01/04/18 06:00 01/04/18 06:00 01/04/18 06:00 01/04/18 06:00 Intake and Output: 01/04/18 01/04/18 06:59 18:59 Intake Total Balance - Medications Medications: Current Medications Acetaminophen (Tylenol 325mg Tab) 650 mg PO Q4 PRN PRN Reason: Pain, Mild (1-3) Acetaminophen (Tylenol 650 Mg Supp) 650 mg RC Q6H PRN PRN Reason: Temp>= 99.5 Last Admin: 01/02/18 11:55 Dose: 650 mg Acetylcysteine (Acetylcysteine 20%) 4 ml IH [id number] [facility] Last Admin: 01/04/18 07:37 Dose: 4 ml Aspirin (Aspirin Supp) 300 mg RC DAILY [facility] Last Admin: 01/03/18 09:41 Dose: 300 mg Bisacodyl (Dulcolax) 10 mg RC HS [facility] Last Admin: 01/03/18 21:37 Dose: 10 mg Budesonide (Pulmicort Respules) 0.5 mg IH [id number] [facility] Last Admin: 01/04/18 07:37 Dose: 0.5 mg Darbepoetin Eduin (Aranesp) 60 mcg SC QWK [facility] Last Admin: 01/02/18 11:49 Dose: 60 mcg Enoxaparin Sodium (Lovenox) 60 mg SC DAILY [facility] PRN Reason: Protocol Last Admin: 01/03/18 09:46 Dose: 60 mg diltiaZEM IVPB 100mg in NS (Cardizem 100mg In Ns) 100 mls @ 10 mls/hr IV .Q10H [facility] PRN Reason: 10 MG/HR Last Admin: 01/04/18 03:29 Dose: 10 mls/hr Aztreonam (Azactam 2 Gm) 100 mls @ 100 mls/hr IVPB Q8 [facility] PRN Reason: Protocol Stop: 01/09/18 10:16 Last Admin: 01/04/18 05:51 Dose: 100 mls/hr Metronidazole (Flagyl) 500 mg in 100 mls @ 100 mls/hr IVPB Q8 [facility] PRN Reason: Protocol Last Admin: 01/04/18 06:55 Dose: 100 mls/hr Potassium Chloride/Dextrose (Potassium Chl 40 Meq In D5w) 1,000 mls @ 60 mls/ hr IV .[id number] [facility] Last Admin: 01/03/18 09:33 Dose: 60 mls/hr Levalbuterol HCl (Xopenex) 0.63 mg IH [id number] [facility] Last Admin: 01/04/18 07:37 Dose: 0.63 mg Levalbuterol HCl (Xopenex) 0.63 mg IH Q2 PRN PRN Reason: Shortness of Breath Last Admin: 01/02/18 20:53 Dose: 0.63 mg Levothyroxine Sodium (Synthroid) 50 mcg IVP DAILY [facility] Last Admin: 01/03/18 09:40 Dose: 50 mcg Lorazepam (Ativan) 0.5 mg IVP Q8 PRN; Protocol PRN Reason: Anxiety Last Admin: 01/02/18 12:17 Dose: 0.5 mg Metoprolol Tartrate (Lopressor) 5 mg IVP Q6 PRN PRN Reason: Systolic Blood Pressure Pantoprazole Sodium (Protonix Inj) 40 mg IVP DAILY [facility] Last Admin: 01/03/18 09:39 Dose: 40 mg Quetiapine Fumarate (Seroquel) 12.5 mg PO HS [facility] PRN Reason: Protocol Last Admin: 01/03/18 21:59 Dose: Not Given Rivastigmine (Exelon 4.6 Mg/24 Hr Patch) 1 patch TD DAILY [facility] Last Admin: 01/03/18 09:39 Dose: 1 patch Thiamine HCl (Vitamin B1 Inj) 100 mg IV DAILY [facility] Last Admin: 01/03/18 09:39 Dose: 100 mg - Labs Labs: 01/04/18 06:30 01/04/18 06:30 PT 18.3 SECONDS (9.4-12.5) H 12/25/17 19:50 INR 1.59 (0.93-1.08) H 12/25/17 19:50 APTT 33.5 Seconds (25.1-36.5) 12/25/17 19:50 - Head Exam Head Exam: ATRAUMATIC, NORMOCEPHALIC - Respiratory Exam Respiratory Exam: Decreased Breath Sounds, NORMAL BREATHING PATTERN - Cardiovascular Exam Cardiovascular Exam: +S1, +S2 - GI/Abdominal Exam GI & Abdominal Exam: Soft, Normal Bowel Sounds. absent: Tenderness - Neurological Exam Neurological Exam: Awake Assessment and Plan - Assessment and Plan (Free Text) Assessment: Hypernatremia/Dehydration SIRS Afib HTN Hypothyroidism Plan: Sodium and potassium have improved with IV fluids. We will continue D5W with potassium at 60ml/hr. Patient has failed 3 swallowing evaluations. Apparently, the family has declined PEG tube and are considering hospice. She is on IV Azactam and Flagyl as per infectious disease. WBC count is slightly decreased from yesterday, but continues to be elevated.
--- NOTE | 2018-01-04 09:35 | PN ---
DATE: 01/04/2018 PULMONARY NOTE SUBJECTIVE: Patient appears comfortable this morning. She is much less short of breath. She remains lethargic. OBJECTIVE: VITAL SIGNS: Temperature is 97.9, pulse 90, respirations 19, blood pressure 143/66. Oxygen saturation on nasal cannula is 99%. HEENT: Normocephalic, atraumatic. No JVD. CARDIOVASCULAR: Systolic ejection murmur at the lower left sternal border. No S3 gallop. LUNGS: Decreased breath sounds at the bases. Much less rhonchi. No wheezing. EXTREMITIES: No clubbing, cyanosis or edema. Calves are nontender to palpation. GASTROINTESTINAL: Abdomen is soft, nontender and nondistended. Bowel sounds are positive. SKIN: Less rash is noted. NEUROLOGIC: Exam limited at the present time. IMPRESSION: 1. Sepsis syndrome. 2. Chronic obstructive pulmonary disease. 3. Probable aspiration pneumonia. 4. Atrial fibrillation. 5. Anemia. 6. Renal insufficiency. PLAN: The patient appears comfortable this morning. She is not short of breath at rest. She remains somewhat lethargic. I did discuss the case with the night nurse at length. The night nurse stated that the patient had a pretty good night. On physical exam, there is much less bronchospasm noted. I will continue the current nebulizer treatments and inhaled steroids for now. I will also continue with the aspiration precautions. The patient also remains on antibiotic therapy - as per Infectious Disease. Input by Dr. Danielson is noted. There are no temperatures noted. The leukocytosis this morning is somewhat improved/decreased. Clinical status of the patient is definitely improved - compared to a few days ago. However, again, the overall status/prognosis for this patient remains poor. All are aware. I will discuss the above with the attending physician. Jj De Souza MD PATEL
[2018-01-04] MEDS: Enoxaparin 60 mg Syringe SC SCH (09:59)
[2018-01-04] MEDS: Thiamine 100 mg/ml Inj IV SCH (10:00)
[2018-01-04] MEDS: Levothyroxine 100 mcg (0.1 mg) Inj IVP SCH (10:02)
[2018-01-04] MEDS: Potassium Chl 40mEq & D5W 1,000 ML IV SCH ×2 (10:06→17:53)
[2018-01-04] MEDS ORDERED: Vancomycin 1gm in NS 250ml 1 GM/250 ML BAG IVPB STA (11:38)
--- NOTE | 2018-01-04 16:06 | PN ---
DATE: 01/04/2018 SUBJECTIVE: The patient seen earlier this morning in 263, bed 1. PHYSICAL EXAMINATION: VITAL SIGNS: Temperature of 97, blood pressure is 140/60, respiratory rate of 18. HEENT: Unremarkable. NECK: Supple. LUNGS: Have decreased breath sounds. HEART: Normal S1 and S2. ABDOMEN: Soft. LABORATORY DATA: Reveals a white count of 17,000, hemoglobin of 9, platelets of 152. BUN of 28, creatinine of 1.2, procalcitonin is 0.35. Urinalysis is noted. Influenza is positive . Microbiology and blood cultures are negative. Review of orders, the patient is on aztreonam, Flagyl, and intermittent vancomycin. ASSESSMENT AND PLAN: She is an 87-year-old female who was seen earlier this morning, overall in poor condition with sepsis with healthcare-associated left lower lobe pneumonia, normal procalcitonin, aspiration pneumonia, resolving maculopapular rash, probably from a drug reaction. On vancomycin, Azactam, and Flagyl. We will give another dose of vancomycin today. Dr. De Souza's note is appreciated from today and we will follow with you. Spike Danielson MD
[2018-01-05] MEDS: Levalbuterol 0.63 MG/3 ML Inhal Soln UD IH SCH ×5 (01:28→19:52)
[2018-01-05] MEDS: Acetylcysteine 20% Inhal Soln (4ml) IH SCH ×4 (01:31→19:52)
[2018-01-05] MEDS: Aztreonam 2 Gm in NS 100mL 100 ML IVPB SCH ×3 (05:46→22:00)
[2018-01-05] MEDS: metroNIDAZOLE IV 500 mg/100 ml 500 MG/100 ML BAG IVPB SCH ×3 (05:47→21:10)
[2018-01-05 06:35] LABS: BASO # 0.11 K/mm3 (0.0-2.0); BASO % 0.6 % (0.0-3.0); EOS # 3.4 (0.0-0.7); EOS % 19.1 % (1.5-5.0); GRAN # 11.87 (1.4-6.5); GRAN % 66.6 % (50.0-68.0); HEMOGLOBIN 9.8 g/dL (12.0-16.0); LYMPH # 1.4 (1.2-3.4); MEAN CELL VOLUME 94.2 fl (80.0-105.0); MEAN CORPUSCULAR HEMOGLOBIN 28.6 pg (25.0-35.0); MEAN CORPUSCULAR HGB CONC 30.3 g/dl (31.0-37.0); MEAN PLATELET VOLUME 9.9 fl (7.0-11.0); MONO % 5.7 % (1.0-6.0); RBC 3.43 10^6/uL (3.5-6.1); RED CELL DISTRIBUTION WIDTH 18.6 % (11.5-14.5); WHITE BLOOD COUNT 17.8 10^3/ul (4.5-11.0)
[2018-01-05 07:26] LABS: ALB/GLOB RATIO 0.9 (1.1-1.8); ALBUMIN 2.5 g/dL (3.0-4.8); ALT/SGPT 35 U/L (7-56); AST/SGOT 34 U/L (14-36); BILIRUBIN,DIRECT 0.6 mg/dL (0.0-0.4); BLOOD UREA NITROGEN 26 mg/dL (7-21); CALCIUM 8.6 mg/dL (8.4-10.5); GFR AFRICAN-AMERICAN > 60; GFR NON-AFRICAN AMERICAN 53
--- NOTE | 2018-01-05 07:50 | CP.PCM.PN ---
Objective - Vital Signs/Intake and Output Vital Signs (last 24 hours): Temp Pulse Resp BP Pulse Ox 97.9 F 99 H 19 153/75 H 98 01/05/18 06:00 01/05/18 06:00 01/05/18 06:00 01/05/18 06:00 01/05/18 06:00 Intake and Output: 01/05/18 01/05/18 06:59 18:59 Intake Total 1240 Balance 1240 - Medications Medications: Current Medications Acetaminophen (Tylenol 325mg Tab) 650 mg PO Q4 PRN PRN Reason: Pain, Mild (1-3) Acetaminophen (Tylenol 650 Mg Supp) 650 mg RC Q6H PRN PRN Reason: Temp>= 99.5 Last Admin: 01/04/18 15:55 Dose: 650 mg Acetylcysteine (Acetylcysteine 20%) 4 ml IH [id number] [facility] Last Admin: 01/05/18 01:31 Dose: 4 ml Aspirin (Aspirin Supp) 300 mg RC DAILY [facility] Last Admin: 01/04/18 10:05 Dose: 300 mg Bisacodyl (Dulcolax) 10 mg RC HS [facility] Last Admin: 01/04/18 22:12 Dose: 10 mg Budesonide (Pulmicort Respules) 0.5 mg IH [id number] [facility] Last Admin: 01/04/18 20:27 Dose: 0.5 mg Darbepoetin Eduin (Aranesp) 60 mcg SC QWK [facility] Last Admin: 01/02/18 11:49 Dose: 60 mcg Enoxaparin Sodium (Lovenox) 60 mg SC DAILY [facility] PRN Reason: Protocol Last Admin: 01/04/18 09:59 Dose: 60 mg diltiaZEM IVPB 100mg in NS (Cardizem 100mg In Ns) 100 mls @ 10 mls/hr IV .Q10H [facility] PRN Reason: 10 MG/HR Last Admin: 01/04/18 03:29 Dose: 10 mls/hr Aztreonam (Azactam 2 Gm) 100 mls @ 100 mls/hr IVPB Q8 [facility] PRN Reason: Protocol Stop: 01/09/18 10:16 Last Admin: 01/05/18 05:46 Dose: 100 mls/hr Metronidazole (Flagyl) 500 mg in 100 mls @ 100 mls/hr IVPB Q8 [facility] PRN Reason: Protocol Last Admin: 01/05/18 05:47 Dose: 100 mls/hr Potassium Chloride/Dextrose (Potassium Chl 40 Meq In D5w) 1,000 mls @ 60 mls/ hr IV .[id number] [facility] Last Admin: 01/04/18 17:53 Dose: Not Given Levalbuterol HCl (Xopenex) 0.63 mg IH [id number] [facility] Last Admin: 01/05/18 01:31 Dose: 0.63 mg Levalbuterol HCl (Xopenex) 0.63 mg IH Q2 PRN PRN Reason: Shortness of Breath Last Admin: 01/02/18 20:53 Dose: 0.63 mg Levothyroxine Sodium (Synthroid) 50 mcg IVP DAILY [facility] Last Admin: 01/04/18 10:02 Dose: 50 mcg Lorazepam (Ativan) 0.5 mg IVP Q8 PRN; Protocol PRN Reason: Anxiety Last Admin: 01/02/18 12:17 Dose: 0.5 mg Metoprolol Tartrate (Lopressor) 5 mg IVP Q6 PRN PRN Reason: Systolic Blood Pressure Pantoprazole Sodium (Protonix Inj) 40 mg IVP DAILY [facility] Last Admin: 01/04/18 10:01 Dose: 40 mg Quetiapine Fumarate (Seroquel) 12.5 mg PO HS [facility] PRN Reason: Protocol Last Admin: 01/04/18 22:53 Dose: Not Given Rivastigmine (Exelon 4.6 Mg/24 Hr Patch) 1 patch TD DAILY [facility] Last Admin: 01/04/18 10:00 Dose: 1 patch Thiamine HCl (Vitamin B1 Inj) 100 mg IV DAILY [facility] Last Admin: 01/04/18 10:00 Dose: 100 mg - Labs Labs: 01/05/18 05:30 01/05/18 05:30 PT 18.3 SECONDS (9.4-12.5) H 12/25/17 19:50 INR 1.59 (0.93-1.08) H 12/25/17 19:50 APTT 33.5 Seconds (25.1-36.5) 12/25/17 19:50
[2018-01-05] MEDS: Budesonide 0.5 mg/2 ml Inhal Susp UD IH SCH ×2 (07:56→19:52)
--- NOTE | 2018-01-05 08:08 | PN ---
DATE: 01/05/2018 PULMONARY NOTE SUBJECTIVE: The patient appears comfortable this morning. She is not short of breath at rest. She is much more awake and alert. PHYSICAL EXAMINATION: VITAL SIGNS: (Last noted in the computer): Temperature 99.0, pulse 89, respirations 19, blood pressure 129/61. Oxygen saturation on nasal cannula is 94-99%. HEENT: Normocephalic, atraumatic. No JVD. CARDIOVASCULAR: Systolic ejection murmur at the lower left sternal border. No S3 gallop. LUNGS: Decreased breath sounds at the bases. Minimal/much less rhonchi. No wheezing. EXTREMITIES: No clubbing, cyanosis or edema. Calves are nontender to palpation. GI: Abdomen is soft, nontender and nondistended. Bowel sounds are positive. SKIN: Less rash is noted. NEUROLOGIC: Limited at the present time. IMPRESSION: 1. Sepsis syndrome. 2. Chronic obstructive pulmonary disease. 3. Probable aspiration pneumonia. 4. Atrial fibrillation. 5. Anemia. 6. Renal insufficiency. PLAN: The patient appears comfortable this morning. She is not short of breath at rest. She is much more awake and alert this morning - compared to yesterday. I did discuss the case with the night nurse at length. The night nurse stated that the patient had a pretty good night. On physical exam, her bronchospasm continues to resolve. In addition, there is no significant alveolar-arterial gradient. I will continue with the current nebulizer treatments, inhaled steroids and aspiration precautions. I would continue with the antibiotic coverage as per Infectious Disease. Input by Dr. Danielson is noted. A repeat chest x-ray had also been ordered for today. I will check that when feasible. Clinical status of the patient is certainly improved - compared to a few days ago. However, again, her overall status/prognosis remains very guarded at best. I will discuss the above with the attending physician. Jj De Souza MD MTDJuvenal
[2018-01-05] MEDS ORDERED: Magnesium Sulfate 2 GM in Sodium Chloride 0.9% 100 ML IVPB ONE (09:10)
--- NOTE | 2018-01-05 10:43 | RAD ---
HISTORY: CHF COMPARISON: 01/01/2018 TECHNIQUE: Chest PA and lateral FINDINGS: LUNGS: Improvement in CHF with resolved vascular congestion and perihilar edema PLEURA: Decrease pleural effusions CARDIOVASCULAR: Normal. OSSEOUS STRUCTURES: No significant abnormalities. VISUALIZED UPPER ABDOMEN: Normal. OTHER FINDINGS: None. IMPRESSION: Improved CHF
[2018-01-05] MEDS ORDERED: Thiamine 100 mg/ml Inj IM SCH (10:51)
[2018-01-05] MEDS: Enoxaparin 60 mg Syringe SC SCH (10:58)
[2018-01-05] MEDS: Levothyroxine 100 mcg (0.1 mg) Inj IVP SCH (11:03)
[2018-01-05] MEDS: Thiamine 100 mg/ml Inj IV SCH (11:03)
[2018-01-05] MEDS: Potassium Chl 40mEq & D5W 1,000 ML IV SCH (11:12)
[2018-01-05] MEDS: diltiaZEM IVPB 100mg in NS 100 ML IV SCH ×2 (11:37→20:55)
--- NOTE | 2018-01-05 13:23 | CP.PCM.PN ---
Subjective - Date & Time of Evaluation Date of Evaluation: 01/05/18 Time of Evaluation: 10:50 - Subjective Subjective: Patient is not in distress but still not eating, no diarrhea, rash is improved, no fevers. Objective - Vital Signs/Intake and Output Vital Signs (last 24 hours): Temp Pulse Resp BP Pulse Ox 98.4 F 99 H 19 153/75 H 98 01/05/18 11:06 01/05/18 06:00 01/05/18 06:00 01/05/18 06:00 01/05/18 06:00 Intake and Output: 01/05/18 01/05/18 06:59 18:59 Intake Total 1240 Balance 1240 - Medications Medications: Current Medications Acetaminophen (Tylenol 325mg Tab) 650 mg PO Q4 PRN PRN Reason: Pain, Mild (1-3) Acetaminophen (Tylenol 650 Mg Supp) 650 mg RC Q6H PRN PRN Reason: Temp>= 99.5 Last Admin: 01/04/18 15:55 Dose: 650 mg Acetylcysteine (Acetylcysteine 20%) 4 ml IH [id number] [facility] Last Admin: 01/05/18 07:55 Dose: 4 ml Aspirin (Aspirin Supp) 300 mg RC DAILY [facility] Last Admin: 01/05/18 11:06 Dose: 300 mg Bisacodyl (Dulcolax) 10 mg RC HS [facility] Last Admin: 01/04/18 22:12 Dose: 10 mg Budesonide (Pulmicort Respules) 0.5 mg IH [id number] [facility] Last Admin: 01/05/18 07:56 Dose: 0.5 mg Darbepoetin Eduin (Aranesp) 60 mcg SC QWK [facility] Last Admin: 01/02/18 11:49 Dose: 60 mcg Enoxaparin Sodium (Lovenox) 60 mg SC DAILY [facility] PRN Reason: Protocol Last Admin: 01/05/18 10:58 Dose: 60 mg diltiaZEM IVPB 100mg in NS (Cardizem 100mg In Ns) 100 mls @ 10 mls/hr IV .Q10H [facility] PRN Reason: 10 MG/HR Last Admin: 01/05/18 11:37 Dose: 10 mls/hr Aztreonam (Azactam 2 Gm) 100 mls @ 100 mls/hr IVPB Q8 [facility] PRN Reason: Protocol Stop: 01/09/18 10:16 Last Admin: 01/05/18 05:46 Dose: 100 mls/hr Metronidazole (Flagyl) 500 mg in 100 mls @ 100 mls/hr IVPB Q8 [facility] PRN Reason: Protocol Last Admin: 01/05/18 05:47 Dose: 100 mls/hr Potassium Chloride/Dextrose (Potassium Chl 40 Meq In D5w) 1,000 mls @ 60 mls/ hr IV .[id number] [facility] Last Admin: 01/05/18 11:12 Dose: 60 mls/hr Levalbuterol HCl (Xopenex) 0.63 mg IH [id number] [facility] Last Admin: 01/05/18 07:56 Dose: 0.63 mg Levalbuterol HCl (Xopenex) 0.63 mg IH Q2 PRN PRN Reason: Shortness of Breath Last Admin: 01/02/18 20:53 Dose: 0.63 mg Levothyroxine Sodium (Synthroid) 50 mcg IVP DAILY [facility] Last Admin: 01/05/18 11:03 Dose: 50 mcg Lorazepam (Ativan) 0.5 mg IVP Q8 PRN; Protocol PRN Reason: Anxiety Last Admin: 01/02/18 12:17 Dose: 0.5 mg Metoprolol Tartrate (Lopressor) 5 mg IVP Q6 PRN PRN Reason: Systolic Blood Pressure Pantoprazole Sodium (Protonix Inj) 40 mg IVP DAILY [facility] Last Admin: 01/05/18 10:57 Dose: 40 mg Quetiapine Fumarate (Seroquel) 12.5 mg PO HS [facility] PRN Reason: Protocol Last Admin: 01/04/18 22:53 Dose: Not Given Rivastigmine (Exelon 4.6 Mg/24 Hr Patch) 1 patch TD DAILY [facility] Last Admin: 01/05/18 10:57 Dose: 1 patch Thiamine HCl (Vitamin B1 Inj) 100 mg IM DAILY [facility] - Labs Labs: 01/05/18 05:30 01/05/18 05:30 PT 18.3 SECONDS (9.4-12.5) H 12/25/17 19:50 INR 1.59 (0.93-1.08) H 12/25/17 19:50 APTT 33.5 Seconds (25.1-36.5) 12/25/17 19:50 - Constitutional Appears: Cachectic, Chronically Ill - Head Exam Head Exam: NORMAL INSPECTION - ENT Exam ENT Exam: Mucous Membranes Moist - Neck Exam Neck Exam: absent: Meningismus - Respiratory Exam Respiratory Exam: Decreased Breath Sounds - Cardiovascular Exam Cardiovascular Exam: +S1, +S2 - GI/Abdominal Exam GI & Abdominal Exam: Soft. absent: Tenderness - Skin Skin Exam: Rash (maculopapular rash is improved) Assessment and Plan - Assessment and Plan (Free Text) Plan: Assessment systemic inflammatory response syndrome, consider sepsis from new onset left lower lobe HCAP/ aspiration pneumonia maculopapular rash, consider drug rash history of right sided otomastoiditis left hip fracture S/P surgery paroxysmal atrial fibrillation HTN hypothyroidism arthritis Plan continue intermittent IV Vanco, Azactam and Flagyl day 4 to complete 5-7 days; repeat blood cx are negative; reviewed new CXR which is showing airspace disease in the left lower lobe noted Dr. De Souza's note today will continue to monitor clinically
--- NOTE | 2018-01-05 13:32 | CP.PCM.PN ---
Subjective - Date & Time of Evaluation Date of Evaluation: 01/05/18 Time of Evaluation: 13:00 - Subjective Subjective: Alert, unable to follow command. No acute distress Objective - Vital Signs/Intake and Output Vital Signs (last 24 hours): Temp Pulse Resp BP Pulse Ox 97.9 F 91 H 20 125/77 98 01/05/18 12:00 01/05/18 12:00 01/05/18 12:00 01/05/18 12:00 01/05/18 06:00 Intake and Output: 01/05/18 01/05/18 06:59 18:59 Intake Total 1240 Balance 1240 - Medications Medications: Current Medications Acetaminophen (Tylenol 325mg Tab) 650 mg PO Q4 PRN PRN Reason: Pain, Mild (1-3) Acetaminophen (Tylenol 650 Mg Supp) 650 mg RC Q6H PRN PRN Reason: Temp>= 99.5 Last Admin: 01/04/18 15:55 Dose: 650 mg Acetylcysteine (Acetylcysteine 20%) 4 ml IH [id number] [facility] Last Admin: 01/05/18 07:55 Dose: 4 ml Aspirin (Aspirin Supp) 300 mg RC DAILY [facility] Last Admin: 01/05/18 11:06 Dose: 300 mg Bisacodyl (Dulcolax) 10 mg RC HS [facility] Last Admin: 01/04/18 22:12 Dose: 10 mg Budesonide (Pulmicort Respules) 0.5 mg IH [id number] [facility] Last Admin: 01/05/18 07:56 Dose: 0.5 mg Darbepoetin Eduin (Aranesp) 60 mcg SC QWK [facility] Last Admin: 01/02/18 11:49 Dose: 60 mcg Enoxaparin Sodium (Lovenox) 60 mg SC DAILY [facility] PRN Reason: Protocol Last Admin: 01/05/18 10:58 Dose: 60 mg diltiaZEM IVPB 100mg in NS (Cardizem 100mg In Ns) 100 mls @ 10 mls/hr IV .Q10H [facility] PRN Reason: 10 MG/HR Last Admin: 01/05/18 11:37 Dose: 10 mls/hr Aztreonam (Azactam 2 Gm) 100 mls @ 100 mls/hr IVPB Q8 [facility] PRN Reason: Protocol Stop: 01/09/18 10:16 Last Admin: 01/05/18 05:46 Dose: 100 mls/hr Metronidazole (Flagyl) 500 mg in 100 mls @ 100 mls/hr IVPB Q8 [facility] PRN Reason: Protocol Last Admin: 01/05/18 05:47 Dose: 100 mls/hr Potassium Chloride/Dextrose (Potassium Chl 40 Meq In D5w) 1,000 mls @ 60 mls/ hr IV .[id number] [facility] Last Admin: 01/05/18 11:12 Dose: 60 mls/hr Levalbuterol HCl (Xopenex) 0.63 mg IH [id number] [facility] Last Admin: 01/05/18 07:56 Dose: 0.63 mg Levalbuterol HCl (Xopenex) 0.63 mg IH Q2 PRN PRN Reason: Shortness of Breath Last Admin: 01/02/18 20:53 Dose: 0.63 mg Levothyroxine Sodium (Synthroid) 50 mcg IVP DAILY [facility] Last Admin: 01/05/18 11:03 Dose: 50 mcg Lorazepam (Ativan) 0.5 mg IVP Q8 PRN; Protocol PRN Reason: Anxiety Last Admin: 01/02/18 12:17 Dose: 0.5 mg Metoprolol Tartrate (Lopressor) 5 mg IVP Q6 PRN PRN Reason: Systolic Blood Pressure Pantoprazole Sodium (Protonix Inj) 40 mg IVP DAILY [facility] Last Admin: 01/05/18 10:57 Dose: 40 mg Quetiapine Fumarate (Seroquel) 12.5 mg PO HS [facility] PRN Reason: Protocol Last Admin: 01/04/18 22:53 Dose: Not Given Rivastigmine (Exelon 4.6 Mg/24 Hr Patch) 1 patch TD DAILY [facility] Last Admin: 01/05/18 10:57 Dose: 1 patch Thiamine HCl (Vitamin B1 Inj) 100 mg IM DAILY [facility] - Labs Labs: 01/05/18 05:30 01/05/18 05:30 PT 18.3 SECONDS (9.4-12.5) H 12/25/17 19:50 INR 1.59 (0.93-1.08) H 12/25/17 19:50 APTT 33.5 Seconds (25.1-36.5) 12/25/17 19:50 - Constitutional Appears: Cachectic, Chronically Ill - Eye Exam Eye Exam: Normal appearance, PERRL - ENT Exam ENT Exam: Mucous Membranes Moist, Normal Oropharynx - Respiratory Exam Respiratory Exam: Decreased Breath Sounds, NORMAL BREATHING PATTERN - Cardiovascular Exam Cardiovascular Exam: REGULAR RHYTHM, +S1, +S2 - GI/Abdominal Exam GI & Abdominal Exam: Soft, Hypoactive Bowel Sounds - Extremities Exam Extremities Exam: Normal Capillary Refill - Neurological Exam Neurological Exam: Altered - Skin Skin Exam: Dry, Pallor Assessment and Plan - Assessment and Plan (Free Text) Assessment: 87 year old female with history of who was admitted with respiratory distress, LLL pneumoniaAKI, dysphagia and altered mental status. Family spoke with Dr Villegas regarding patients medical condition and over all prognosis. Family does not want feeding tube. Patient not a candidate for SIDNEY because she does not have source of nutrition. Family has decided to move forward with hospice services. Hospice services explained in detail, questions answered.Family to met with hospice office coordinator. Time spent with family in goals of care and end of life discussion, 45 minutes Plan: Continue current medical management Palliative support in establishing goals of care Hospice evaluation
--- NOTE | 2018-01-05 15:03 | PN ---
DATE: 01/05/2018 CARDIOLOGY FOLLOWUP SUBJECTIVE: The patient remains confused in bed. PHYSICAL EXAMINATION: VITAL SIGNS: Blood pressure 153/75, the heart rate varies between 80 and 90, atrial fibrillation. NECK: Negative JVD. LUNGS: Without rales. HEART: S1, S2. EXTREMITIES: Without edema. LABORATORY DATA: Hemoglobin is 9.8. Chemistries: BUN and creatinine are unremarkable. IMPRESSION: 1. Chronic atrial fibrillation. 2. Dementia. 3. Difficulty swallowing. 4. Pulmonary hypertension. 5. Chronic obstructive pulmonary disease. Given these findings, until the family agrees to feeding tube or PEG, the patient will need to remain on IV Cardizem for heart rate control. Carmine Bailye MD
[2018-01-06] MEDS: Levalbuterol 0.63 MG/3 ML Inhal Soln UD IH SCH ×3 (01:17→13:45)
[2018-01-06] MEDS: Acetylcysteine 20% Inhal Soln (4ml) IH SCH ×4 (01:17→13:46)
[2018-01-06] MEDS: Potassium Chl 40mEq & D5W 1,000 ML IV SCH (04:09)
[2018-01-06] MEDS: metroNIDAZOLE IV 500 mg/100 ml 500 MG/100 ML BAG IVPB SCH ×2 (05:01→13:22)
[2018-01-06] MEDS: diltiaZEM IVPB 100mg in NS 100 ML IV SCH (05:07)
[2018-01-06] MEDS: Aztreonam 2 Gm in NS 100mL 100 ML IVPB SCH (06:18)
[2018-01-06 06:20] LABS: BASO # 0.09 K/mm3 (0.0-2.0); BASO % 0.7 % (0.0-3.0); EOS # 0.4 (0.0-0.7); EOS % 3.4 % (1.5-5.0); GRAN # 10.21 (1.4-6.5); HEMOGLOBIN 8.1 g/dL (12.0-16.0); LYMPH # 1.1 (1.2-3.4); LYMPH % 8.4 % (22.0-35.0); MEAN CELL VOLUME 95.3 fl (80.0-105.0); MEAN CORPUSCULAR HEMOGLOBIN 29.1 pg (25.0-35.0); MEAN CORPUSCULAR HGB CONC 30.6 g/dl (31.0-37.0); MEAN PLATELET VOLUME 9.5 fl (7.0-11.0); MONO % 7.5 % (1.0-6.0); RBC 2.78 10^6/uL (3.5-6.1); WHITE BLOOD COUNT 12.8 10^3/ul (4.5-11.0)
[2018-01-06 06:33] VITALS: O2SAT 98
--- NOTE | 2018-01-06 06:34 | CON ---
NEUROLOGY CONSULTATION REPORT DATE: REASON FOR CONSULTATION: Difficulty swallowing. HISTORY OF PRESENT ILLNESS: The patient is an 87-year-old female, who was admitted on 12/25/2017 after she was noted to have decreasing pulse oximetry in the snf. In the snf, patient was found to be septic, and the patient was initiated on antibiotics. The patient was also noted to be lethargic and sleepy, had altered mental status during the hospitalization. As per patient's son, the patient had femur surgical repair, and she was admitted in the hospital, and after that she was discharged to a rehabilitation center/snf. There patient was undergoing physical therapy as well as speech therapy. There were some days she was eating and another days she was not eating. The patient never came back to her baseline mental status after the surgery, As per the patient's son the patient used to do most of her stuff by herself. The patient is not able to swallow since she has been in the hospital. Patient had a swallowing evaluation done; however, patient failed swallowing evaluation. The patient unable to give any history because of mental status, and the histories are obtained from the chart as well as patient's family. REVIEW OF SYSTEMS: Unable to obtain; however, there is no cough, no sputum production. No fever. PAST MEDICAL HISTORY: Includes atrial fibrillation, hypertension, hypothyroidism, arthritis. PAST SURGICAL HISTORY: Includes left hip fracture. CURRENT MEDICATIONS: Includes aspirin suppository, Aranesp, Ativan p.r.n., aztreonam, diltiazem, Dulcolax, Exelon patch, Flagyl, Lopressor, Lovenox, Protonix, Pulmicort, Seroquel, Synthroid, vitamin D1, Xopenex, and Tylenol. ALLERGIES: TO PENICILLIN, SULFA SOCIAL HISTORY: The patient is a nonsmoker, nonalcoholic. Does not use any illicit drugs. FAMILY HISTORY: Reviewed and noncontributory. PHYSICAL EXAMINATION: GENERAL: The patient is an elderly female lying on the bed in no acute distress. VITAL SIGNS: Her blood pressure is 137/67, heart rate is 95 per minute, breathing at a rate of 18 per minute, temperature is 99 degrees Fahrenheit. HEENT: Head is normocephalic, atraumatic. NECK: Supple. There is no carotid bruit. LUNGS: Clear to auscultation. S1 and S2 audible. No murmurs. ABDOMEN: Soft and nontender. Bowel sounds are present. NEUROLOGY: Mental status: The patient is lethargic, not following any verbal commands. Minimal opening of eyes to noxious stimuli. She is lying with her mouth open. Cranial nerve examination: Pupils 3 mm, bilaterally reactive to light. There is positive doll's eye movement. Positive corneal reflux. There is no obvious facial asymmetry. Motor examination: Tone is normal. She withdraws all four extremities to noxious painful stimuli. She also moves her upper extremities spontaneously. Reflexes 1+ and symmetrical with absent ankle jerk. Plantars downgoing bilaterally. Cerebellar examination: No gross dysmetria seen. Gait is untestable. Sensory examination: She withdraws extremities to noxious painful stimuli. LABORATORY DATA: Labs reviewed shows WBC of 17.8, hemoglobin of 9.8, hematocrit of 32.3, and platelets of 208. Her sodium is 146, potassium is 3.8, chloride 113, carbon dioxide 27, BUN of 26, creatinine of 1.0, and glucose of 110. Se had a CT scan of the head on 12/29/2017, shows no acute findings. Her chest x-ray from 01/05/2018 shows improved CHF. She had a carotid Doppler study done which shows no significant stenosis. IMPRESSION: 1. Dysphagia which appears to be secondary to her altered mental status with patient being lethargic at the moment. 2. Toxic metabolic encephalopathy. 3. Sepsis. 4. Questionable underlying dementia. 5. Paroxysmal atrial fibrillation. 6. Leukocytosis. 7. Hypomagnesemia. RECOMMENDATION: 1. Patient to have swallowing evaluation once the patient is more awake and alert. 2. At the moment, the family has decided to have home hospice. If the patient's family change their mind and wants full care, then patient will have MRI of the brain without contrast to look for any cerebrovascular accident responsible for the patient's dysphagia. 3. Consider acetylcholinesterase antibody as well. 4. Patient is on IV antibiotics for her sepsis. 5. The possibility of feeding tube was discussed with the patient's family, and apparently patient's will was not to have a feeding tube placed. 6. Please continue supportive care and other treatment; and as mentioned above if patient decides to stay in the hospital, consider getting MRI of the brain for the etiology of her dysphagia as well as acetylcholinesterase antibody. 7. Please continue supportive care and other treatment. Thank you for the opportunity to participate in the care of this patient. Shane Alejo MD
[2018-01-06 06:45] LABS: ALB/GLOB RATIO 0.8 (1.1-1.8); ALBUMIN 2.1 g/dL (3.0-4.8); BILIRUBIN,DIRECT 0.4 mg/dL (0.0-0.4); CALCIUM 7.8 mg/dL (8.4-10.5)
--- NOTE | 2018-01-06 07:11 | DS ---
FINAL PROGRESS NOTE AND DISCHARGE SUMMARY HISTORY OF PRESENT ILLNESS: Patient is seen in the radiology holding area. Patient is lying in the bed. Patient is awake, responsive, but lethargic and responsive intermittently with alert, awake, responsive. Overnight nurse's notes were reviewed. According to the nurses, patient was nonverbal. Patient's telemetry shows normal sinus rhythm. PHYSICAL EXAMINATION: VITAL SIGNS: T-max 99 degrees Fahrenheit, down to 97.9; heart rate 86 and 99; blood pressure 153/75; respiration 18; O2 sat 98%. Intake and output not documented correctly. HEENT: Head examination normocephalic, atraumatic. HEENT examination shows pinkish pale conjunctivae. Anicteric sclerae. No oropharyngeal lesion. No neck rigidity. Soft carotid bruit. CHEST: Kyphosis. LUNGS: Shows questionable decreased breath sound at the bases, left more than the right. CARDIOVASCULAR: S1, S2, regular rhythm. Positive systolic murmur left sternal border, right second intercostal space, left second intercostal space. ABDOMEN: Soft. Positive bowel sound. GENITALIA: Female. RECTAL: Examination is deferred. EXTREMITIES: Shows no pitting edema, no calf tenderness, no Homans' sign. MUSCULOSKELETAL: Shows decreased body mass of 22. NEUROLOGIC: Patient is alert, awake, responsive, confused, disoriented. DIAGNOSTICS: On 01/05, WBC count is 17.8, down from 19.4; hemoglobin/hematocrit 9.8 and 32.3; platelet 208,000. Sodium 146, potassium 3.8, chloride 113, CO2 27, anion gap 10, BUN 26, creatinine 1.0, GFR greater than 60, glucose 110, calcium 8.6, magnesium 1.6, total protein 5.2, albumin 2.5. Repeat blood cultures from 01/02 are negative growth. Patient had a repeat chest x-ray done today for evaluation of congestive heart failure, which shows resolved pulmonary vascular congestion and perihilar edema, small left pleural effusion noted. IMPRESSION AND PLAN: 1. Severe deconditioning and debilitated state. 2. Anorexia with severe feeding dysfunction and severe oropharyngeal dysphagia with high risk for aspiration. 3. Hypertension. 4. Paroxysmal atrial fibrillation with intermittent rapid ventricular response. 5. Leukocytosis, slow resolving. 6. Normocytic iron-deficiency anemia. 7. Leukocytosis with granulocytosis. 8. Hypokalemia. 9. Transient hypernatremia. 10. Prerenal kidney injury with underlying chronic kidney disease stage III and transient acute kidney injury. 11. Hypomagnesemia. 12. Hypoalbuminemia. 13. Hypovitaminosis D. 14. Diastolic congestive heart failure with elevated brain natriuretic peptide. 15. Elevated C-reactive protein. 16. Proteinuria, microscopic hematuria, pyuria, bacteriuria, funguria. 17. Andressa albicans stage III sacral decubitus ulceration. 18. Status post 1 unit of packed red blood cell transfusion. 19. History of vitamin B12 deficiency. 20. Resolved pulmonary vascular congestion and congestive heart failure and perihilar edema. 21. Resolving pleural effusion. 22. Severe deconditioning and gait dysfunction with bedridden status and functional quadriplegia. 23. Chronic obstructive pulmonary disease, picture on chest x-ray. 24. Sepsis with healthcare-associated left lower lobe pneumonia and aspiration pneumonia. 25. Resolved maculopapular rash probably drug reaction. 26. Worsening dementia. 27. Hypothyroidism. Plan at this time, I have met with the patient's daughter with Isabel Peres. I have explained to the patient's daughter about the patient's clinical condition, diagnostic test results and recommendation by all the physicians involved in the care of the patient. I have explained all the details in layman's language to the patient's daughter who was present with Isabel Peres. I have also explained to the patient's daughter about the recommendation from all the physicians. I have explained to the patient's daughter that the patient's overall prognosis is extremely guarded to poor and the patient is in extremely deconditioned and decompensated state. Patient's daughter and the family has declined hospice option and hospice care. At this time, I have discussed and reviewed recommendation from GI, Cardiology and Pulmonary. All of them have recommended that patient's overall prognosis is poor, which has been reinforced to the patient's family. I have also advised the patient's daughter to seek further social science professor and Palliative Care assistance because patient is medically clear to be discharged to subacute rehab or home or Hospice if the patient's family consider because patient's living will has clearly stated the patient does not want any artificial feeding. CURRENT MEDICATIONS: At present, patient's current medications are Mucomyst nebulizer 20% 4 mL q. 6 hours, Aranesp 60 mcg subcu weekly, aspirin suppository 300 mg daily, Ativan 0.5 mg IV q. 8 p.r.n., Azactam 2 g IV q. 8, Cardizem drip at 10 mg daily, Dulcolax suppository at bedtime, Exelon 4.6 mg daily, Flagyl 500 IV q. 8, Lopressor 5 mg IV q. 6 p.r.n., Lovenox 60 mg daily, magnesium sulfate riders given, potassium is running at D5W at 60 mL an hour, 40 mEq potassium, Protonix 40 IV daily, Pulmicort nebulizer 0.5 mg q. 12, Seroquel 12.5 at bedtime, Synthroid 50 mcg IV daily, Tylenol p.r.n. for fever. Patient was given vancomycin one dose yesterday. Patient is on thiamine 100 mg IM daily, Xopenex 0.63 mg q. 2 hours p.r.n. and q. 6 hours round the clock. Patient is presently on n.p.o. diet. Head of the bed at 30 degrees, HUMBERTO casiano, ALMITAs. At present as mentioned above, I have explained to the patient's daughter that patient is medically cleared to be discharged to subacute rehab if accepted or otherwise patient can be discharged home with [facility] care with home PT or home hospice after Cardiology, Infectious Disease and Gastroenterology clearance. Discharge medications will be as per the updated ambulatory orders and discharge medications, which are Tylenol 650 mg p.o. or suppository q. 6 p.r.n. for fever, Eliquis to be resumed 2.5 b.i.d. Patient is to resume Ecotrin 81 mg daily or aspirin 300 mg suppository daily; Dulcolax suppository 10 mg q. 12.; Pulmicort nebulizer 0.5 mg q. 12; Colace 50 mg three times a day; Procrit 10,000 units subcu Friday, Friday and Friday; folic acid 1 mg daily; Xopenex nebulizer 0.63 mg every 6 hours; Synthroid 200 mcg p.o. daily; Zestril 5 mg daily; Ativan 0.5 or 0.25 mg p.o. q. 8 p.r.n.; Lopressor 25 mg twice a day; Bactroban cream to the affected area; Zofran 4 mg q. 4 p.r.n.; Protonix 40 mg daily; K-Dur 20 mEq daily; Seroquel 12.5 at bedtime; Exelon patch 4.6 mg daily; Senokot 17.2 mg at bedtime. At present, the patient's condition overall guarded to poor condition, overall guarded to poor prognosis was explained and all the diagnostic tests and recommendation by all the physicians involved the care of the patient was explained to the patient's daughter with Isabel Peres present with her at length and all questions concerned answered. At present, the plan is to be discharge the patient to subacute rehab or to home hospice if patient's family agrees, otherwise we will discharge home with [facility] aid and home PT. Time spent in the entire discharge process, more than 45 minutes. Dictated and electronically signed, not read. Matt Villegas MD
[2018-01-06] MEDS: Budesonide 0.5 mg/2 ml Inhal Susp UD IH SCH ×2 (07:34→13:46)
[2018-01-06] MEDS: Enoxaparin 60 mg Syringe SC SCH (09:33)
[2018-01-06] MEDS: Levothyroxine 100 mcg (0.1 mg) Inj IVP SCH (09:38)
--- NOTE | 2018-01-06 09:45 | PN ---
DATE: 01/06/2018 PULMONARY NOTE SUBJECTIVE: The patient appears very lethargic this morning. She is not short of breath at rest. PHYSICAL EXAMINATION: VITAL SIGNS: Temperature is 98.7, pulse 91, respirations 18, blood pressure 116/54. Oxygen saturation on nasal cannula is 98%. HEENT: Normocephalic, atraumatic. No JVD. CARDIOVASCULAR: Systolic ejection murmur at the lower left sternal border. No S3 gallop. LUNGS: Decreased breath sounds at the bases. Minimal/less rhonchi. No wheezing. EXTREMITIES: No clubbing, cyanosis or edema. Calves are nontender to palpation. GI: Abdomen is soft, nontender and nondistended. Bowel sounds are positive. SKIN: Less rash is noted. NEUROLOGIC: Limited at the present time. PERTINENT LABORATORY DATA: Chest x-ray was repeated yesterday and reviewed. The chest x-ray is significantly improved-- with almost complete resolution of the right lower lobe and left perihilar infiltrates. There is also less pulmonary vascular congestion. IMPRESSION: 1. Sepsis syndrome. 2. Chronic obstructive pulmonary disease. 3. Probable aspiration pneumonia. 4. Atrial fibrillation. 5. Anemia. 6. Renal insufficiency. PLAN: The patient definitely appears more lethargic this morning. She is not short of breath at rest. I did discuss the case with the night nurse at length. The night nurse does confirm that the patient has been lethargic during her shift. I did review the chest x-ray as above. The chest x-ray is significantly improved from the previous film done on 01/01/2018. I would continue with the antibiotic coverage for now. Input by Dr. Danielson is noted. The temperatures have resolved. On physical exam, there is much less bronchospasm noted. I will continue with the current nebulizer treatments, inhaled steroids and aspiration precautions for now. As above, the patient is much more lethargic this morning. She is unable to take anything orally. In addition, the family does not want any aggressive procedures done. Thus, the patient may be transferred to hospice later today. I did discuss the case with Isabel Peres at length yesterday. I will also discuss the case with Dr. Villegas. Jj De Souza MD [facility] # [id number] PATEL
[2018-01-06] MEDS ORDERED: Aztreonam 2 Gm in NS 100mL 100 ML IVPB SCH (10:00)
--- NOTE | 2018-01-06 11:30 | PN ---
DATE: 01/06/2018 SUBJECTIVE: Patient remains lethargic in bed. PHYSICAL EXAMINATION: VITAL SIGNS: Blood pressure is 139/71, heart rate is in the 80s, atrial fibrillation. NECK: Negative JVD. LUNGS: Without rales. HEART: S1 and S2. EXTREMITIES: Without edema. LABORATORY DATA: Hemoglobin is 8.1. Chemistry: BUN and creatinine 30 and 1.2. IMPRESSION: 1. Atrial fibrillation. 2. Chronic obstructive pulmonary disease. 3. Pulmonary hypertension. 4. Marked lethargy. PLAN: The patient and the patient's family has decided to move forward with hospice services according to note. Carmine Bailey MD
[2018-01-06 13:19] VITALS: BP 152/88; PULSE 82; RESP 19; TEMP 97.9
--- NOTE | 2018-01-06 14:56 | CP.PCM.PN ---
Subjective - Date & Time of Evaluation Date of Evaluation: 01/06/18 Time of Evaluation: 10:10 - Subjective Subjective: Not in distress, afebrile, no diarrhea. Objective - Vital Signs/Intake and Output Vital Signs (last 24 hours): Temp Pulse Resp BP Pulse Ox 98.7 F 92 H 18 116/54 L 98 01/06/18 06:00 01/06/18 07:47 01/06/18 06:00 01/06/18 06:00 01/06/18 06:00 Intake and Output: 01/06/18 01/06/18 06:59 18:59 Intake Total 940 Balance 940 - Medications Medications: Current Medications Acetaminophen (Tylenol 325mg Tab) 650 mg PO Q4 PRN PRN Reason: Pain, Mild (1-3) Acetaminophen (Tylenol 650 Mg Supp) 650 mg RC Q6H PRN PRN Reason: Temp>= 99.5 Last Admin: 01/05/18 20:54 Dose: 650 mg Acetylcysteine (Acetylcysteine 20%) 4 ml IH [id number] [facility] Last Admin: 01/06/18 07:34 Dose: 4 ml Aspirin (Aspirin Supp) 300 mg RC DAILY [facility] Last Admin: 01/05/18 11:06 Dose: 300 mg Bisacodyl (Dulcolax) 10 mg RC HS [facility] Last Admin: 01/05/18 21:10 Dose: 10 mg Budesonide (Pulmicort Respules) 0.5 mg IH [id number] [facility] Last Admin: 01/06/18 07:34 Dose: 0.5 mg Darbepoetin Eduin (Aranesp) 60 mcg SC QWK [facility] Last Admin: 01/02/18 11:49 Dose: 60 mcg Enoxaparin Sodium (Lovenox) 60 mg SC DAILY [facility] PRN Reason: Protocol Last Admin: 01/05/18 10:58 Dose: 60 mg diltiaZEM IVPB 100mg in NS (Cardizem 100mg In Ns) 100 mls @ 10 mls/hr IV .Q10H [facility] PRN Reason: 10 MG/HR Last Admin: 01/06/18 05:07 Dose: 10 mls/hr Metronidazole (Flagyl) 500 mg in 100 mls @ 100 mls/hr IVPB Q8 [facility] PRN Reason: Protocol Last Admin: 01/06/18 05:01 Dose: 100 mls/hr Aztreonam (Azactam 2 Gm) 100 mls @ 100 mls/hr IVPB Q12 [facility] PRN Reason: Protocol Stop: 01/13/18 10:01 Vancomycin HCl 1.5 gm/ Sodium (Chloride) 250 mls @ 167 mls/hr IVPB ONCE ONE PRN Reason: Protocol Stop: 01/06/18 10:42 Levalbuterol HCl (Xopenex) 0.63 mg IH [id number] [facility] Last Admin: 01/06/18 07:34 Dose: 0.63 mg Levalbuterol HCl (Xopenex) 0.63 mg IH Q2 PRN PRN Reason: Shortness of Breath Last Admin: 01/02/18 20:53 Dose: 0.63 mg Levothyroxine Sodium (Synthroid) 50 mcg IVP DAILY [facility] Last Admin: 01/05/18 11:03 Dose: 50 mcg Lorazepam (Ativan) 0.5 mg IVP Q8 PRN; Protocol PRN Reason: Anxiety Last Admin: 01/05/18 18:05 Dose: 0.5 mg Metoprolol Tartrate (Lopressor) 5 mg IVP Q6 PRN PRN Reason: Systolic Blood Pressure Pantoprazole Sodium (Protonix Inj) 40 mg IVP DAILY [facility] Last Admin: 01/05/18 10:57 Dose: 40 mg Quetiapine Fumarate (Seroquel) 12.5 mg PO HS [facility] PRN Reason: Protocol Last Admin: 01/05/18 21:11 Dose: Not Given Rivastigmine (Exelon 4.6 Mg/24 Hr Patch) 1 patch TD DAILY [facility] Last Admin: 01/05/18 10:57 Dose: 1 patch Thiamine HCl (Vitamin B1 Inj) 100 mg IM DAILY [facility] - Labs Labs: 01/06/18 06:00 01/06/18 06:00 PT 18.3 SECONDS (9.4-12.5) H 12/25/17 19:50 INR 1.59 (0.93-1.08) H 12/25/17 19:50 APTT 33.5 Seconds (25.1-36.5) 12/25/17 19:50 - Constitutional Appears: Chronically Ill - Head Exam Head Exam: NORMAL INSPECTION - Neck Exam Neck Exam: absent: Meningismus - Respiratory Exam Respiratory Exam: Decreased Breath Sounds - Cardiovascular Exam Cardiovascular Exam: +S1, +S2 - GI/Abdominal Exam GI & Abdominal Exam: Soft. absent: Tenderness Assessment and Plan - Assessment and Plan (Free Text) Plan: Assessment systemic inflammatory response syndrome, consider sepsis from new onset left lower lobe HCAP/ aspiration pneumonia maculopapular rash, consider drug rash history of right sided otomastoiditis left hip fracture S/P surgery paroxysmal atrial fibrillation HTN hypothyroidism arthritis Plan continue intermittent IV Vanco, Azactam and Flagyl day 5 to complete 5-7 days; repeat blood cx are negative; reviewed new CXR which is showing airspace disease in the left lower lobe noted Dr. De Souza's note will continue to monitor clinically overall prognosis is poor
--- NOTE | 2018-01-07 16:48 | DS ---
FINAL PROGRESS NOTE AND DISCHARGE SUMMARY HISTORY OF PRESENT ILLNESS: The patient is seen today in room 263, bed 1. The patient's daughter is at bedside. Overnight last 24-hours events are noted. The patient's family finally agreed for home hospice last night. The patient's case was referred to [facility]. The patient's family has decided for home hospice with [facility]. The patient's family met with the home hospice national account representative. The patient is seen lying in the bed. PHYSICAL EXAMINATION: VITAL SIGNS: T-max is 98.6. Telemetry shows atrial fibrillation with heart rate in 90s, 85, 94, 82; blood pressure 139/71, 150/60, 150/60, 152/88; respirations 19; O2 sat is 98-96%. Output is not documented. HEENT: Head examination normocephalic, atraumatic. HEENT examination shows pale conjunctivae. Dry oral mucosa. Positive facial muscle wasting. No carotid bruit. No jugular venous distention. LUNGS: Decreased breath sound at the bases, left more than the right. CARDIOVASCULAR: S1, S2. Irregular rhythm. Positive systolic murmur, left sternal border, right second intercostal space, left second intercostal space. ABDOMEN: Soft. Positive bowel sounds. GENITALIA: Female. RECTAL: Deferred. EXTREMITY: Shows no pitting edema, no calf tenderness, no Homans' sign. Positive hip surgery. Surgical scar noted. MUSCULOSKELETAL: Shows a decreased muscle mass. Positive cachexia noted. NEUROLOGIC: The patient is arousable, but confused, disoriented, moaning. Body mass index is 23. DIAGNOSTICS: On 01/06/2018, WBC is down to 12.8, hemoglobin and hematocrit 8.1 and 26.5, platelet 221. Granulocytes 80% segs. Sodium 146, potassium 4.1, chloride 115, CO2 of 26, anion gap 10, BUN 30, creatinine 1.2, GFR 52, glucose 116, calcium 7.8, magnesium 1.9, AST 55, total protein 4.6, albumin 2.1, prealbumin is very low at 9.8. Repeat blood cultures x2 four sets are negative. The patient received 2 units of PRBC. The patient's son contacted me yesterday in the office and requested a second opinion from a neurologist, which was obtained through Dr. Shane Alejo and his recommendations were noted. The patient was seen by [facility]. Their recommendations were noted. IMPRESSION AND PLAN: 1. Altered mental status with weakness and encephalopathy with hypoxemia. 2. Paroxysmal atrial fibrillation. 3. Severe advanced dementia. 4. Encephalopathy. 5. Leukocytosis with granulocytosis. 6. Normocytic iron-deficiency anemia with decreasing hemoglobin and hematocrit. 7. Granulocytosis. 8. Transient thrombocytopenia. 9. Eosinophilia. 10. Lymphopenia. 11. Transient thrombocytopenia. 12. Leukocytosis (resolving). 13. Transient hypernatremia. 14. Hypokalemia. 15. Hypomagnesemia. 16. Hypocalcemia. 17. Moderate protein malnutrition and hypoalbuminemia. 18. Dementia. 19. Right-sided diastolic congestive heart failure with elevated BNP. 20. Severe feeding dysfunction and severe oropharyngeal dysphagia with risk for aspiration. 21. Hypovitaminosis D. 22. Elevated C-reactive protein. 23. Sacral decubitus ulceration stage II to III. 24. Andressa albicans sacral decubitus ulceration stage II to III. 25. Proteinuria, ketonuria, hematuria, pyuria, bacteriuria, funguria. 26. Status post packed red blood cell transfusion x2. 27. Resolving and resolved congestive heart failure and pulmonary vascular congestion. 28. Paroxysmal atrial fibrillation with premature atrial contraction. 29. Severe gait dysfunction and deconditioning. 30. Systemic inflammatory response syndrome with possible consideration for sepsis. 31. Possible left lower lobe healthcare-associated aspiration pneumonia. 32. Maculopapular rash versus drug rash. 33. Hypothyroidism. 34. Chronic obstructive pulmonary disease. 35. Right lower lobe airspace and left perihilar and left lower lobe healthcare-associated possible aspiration pneumonia. 36. Severe pulmonary vascular congestion and bilateral pleural effusion, left more than the right (resolved). 37. Severe dextroscoliosis of the spine and multilevel degenerative joint disease. 38. Bilateral multilobar possible healthcare-associated aspiration pneumonia with right lower lobe airspace disease and haziness with left perihilar and left lower lobe infiltrate and airspace disease. 39. Severe deconditioning. 40. Cachexia. 41. Severe malnutrition. 42. Toxic metabolic encephalopathy. Plan at this time, the patient's family finally agreed for home hospice. The patient will be discharged to home hospice. The patient's current medications as per today's discharge: 1. Mucomyst nebulizer 20% 4 mL q. 6 hours. 2. Aranesp 60 mcg subcu weekly. 3. Aspirin 300 mg suppository daily. 4. Ativan 0.5 mg IV q. 8 p.r.n. 5. Azactam 2 g IV q. 12 hours for a total of 5-7 days, today is the fifth day. 6. Cardizem drip 10 mg per hour. 7. Dulcolax suppository 10 mg at bedtime. 8. Exelon 4.6 mg patch daily. 9. Flagyl 500 IV q. 8. 10. Lopressor 5 mg IV q. 6 p.r.n. 11. Lovenox 60 mg subcu daily. 12. Protonix 40 mg IV daily. 13. Pulmicort nebulizer 0.5 mg q. 12. 14. Seroquel 12.5 mg at bedtime. 15. Synthroid 50 mcg IV daily. 16. Tylenol 650 mg suppository q. 6 p.r.n. for temperature greater than or equal to 99.5. 17. Vancomycin 1 g IV was given x1. 18. Thiamine 100 mg IV/IM daily. 19. Xopenex nebulizer 0.63 mg every 6 hours round the clock q. 2 hours p.r.n. The patient is discharged today to home hospice after the patient's family agreed for home hospice. Time spent in the entire discharge process more than 45 minutes. Dictated and electronically signed, not read. Matt Villegas MD
== END 2018-01-06 17:05 | disposition hospice, home (50) | DRG 871 ==
LOC: ED 19:14 → ERH 21:30 → 2RNO 23:40
PROVIDERS: ADMIT Internal Medicine; ATTEND Internal Medicine
DX: A41.9 Sepsis, unspecified organism (principal); J69.0 Pneumonitis due to inhalation of food and vomit; E43 Unspecified severe protein-calorie malnutrition; N17.9 Acute kidney failure, unspecified; G92 Toxic encephalopathy; E87.0 Hyperosmolality and hypernatremia; L89.153 Pressure ulcer of sacral region, stage 3; R53.2 Functional quadriplegia; R13.12 Dysphagia, oropharyngeal phase; I13.0 Hypertensive heart and chronic kidney disease with heart failure and stage 1 through stage 4 chronic kidney disease, or unspecified chronic kidney disease; I50.30 Unspecified diastolic (congestive) heart failure; J98.11 Atelectasis; N39.0 Urinary tract infection, site not specified; R64 Cachexia; D69.6 Thrombocytopenia, unspecified; E11.22 Type 2 diabetes mellitus with diabetic chronic kidney disease; E11.51 Type 2 diabetes mellitus with diabetic peripheral angiopathy without gangrene; E83.42 Hypomagnesemia; E86.0 Dehydration; B05.9 Measles without complication; D50.9 Iron deficiency anemia, unspecified; E03.9 Hypothyroidism, unspecified; E53.8 Deficiency of other specified B group vitamins; E55.9 Vitamin D deficiency, unspecified; E83.51 Hypocalcemia; E87.6 Hypokalemia; F02.80 Dementia in other diseases classified elsewhere, unspecified severity, without behavioral disturbance, psychotic disturbance, mood disturbance, and anxiety; G30.9 Alzheimer's disease, unspecified; I07.1 Rheumatic tricuspid insufficiency; I25.10 Atherosclerotic heart disease of native coronary artery without angina pectoris; I27.20 Pulmonary hypertension, unspecified; I35.1 Nonrheumatic aortic (valve) insufficiency; I48.0 Paroxysmal atrial fibrillation; I48.2 Chronic atrial fibrillation; I65.23 Occlusion and stenosis of bilateral carotid arteries; J44.9 Chronic obstructive pulmonary disease, unspecified; J98.01 Acute bronchospasm; K59.00 Constipation, unspecified; L29.9 Pruritus, unspecified; M41.9 Scoliosis, unspecified; M47.9 Spondylosis, unspecified; M81.0 Age-related osteoporosis without current pathological fracture; N18.3 Chronic kidney disease, stage 3 (moderate); R09.02 Hypoxemia; R31.29 Other microscopic hematuria; S72.002D Fracture of unspecified part of neck of left femur, subsequent encounter for closed fracture with routine healing; Z51.5 Encounter for palliative care; Z66 Do not resuscitate; Z79.01 Long term (current) use of anticoagulants; Z79.82 Long term (current) use of aspirin; Z79.899 Other long term (current) drug therapy; Z97.4 Presence of external hearing-aid; R79.82 Elevated C-reactive protein (CRP); L27.0 Generalized skin eruption due to drugs and medicaments taken internally